=== PATIENT | male | born 1930 | race Hispanic/Latino ===

== ENCOUNTER 2016-08-29 14:17 | Inpatient (IN) | payer MEDICARE ==
[2016-08-29 14:17] VITALS: BMI 28.8
--- NOTE | 2016-08-29 15:33 | C.PDOC ---
History Of Present Illness 85-YEAR-OLD MALE, PRESENTS TO THE EMERGENCY DEPARTMENT WITH COMPLAINTS OF SOB. PATIENT STATES HE IS REFERRED DR MCLAUGHLIN FOR WORSENING SOB X 1 WEEK. PS W CHRONIC SOB AND BROTHERS BUT NOW WORSE THAN USUAL. HO CABG, MVR 2009. PS STOPPED TAKING ALL MEDS EXCEPT RANITIDINE DUE TO GI UPSET X 1 MO. CURRENTLY CO RECUR GI BURNING, REQUESTING DOSE OF RANITIDINE. NO ASSOC CP, FEVER, COUGH, SWELLING. EXAM NARD LUNGS +TACHYPNEA MILD, SPEAKING FULL SENTENCES. CTA B/L NO W/R/R CV RRR NO EDEMA ABD NEG Time Seen by Provider: 08/29/16 14:45 Chief Complaint (Nursing): Abdominal Pain History Per: Patient History/Exam Limitations: no limitations Onset/Duration Of Symptoms: Days Current Symptoms Are (Timing): Still Present Past Medical History Reviewed: Historical Data, Nursing Documentation, Vital Signs Vital Signs: Last Vital Signs Temp 97.9 F 08/29/16 16:21 Pulse 94 H 08/29/16 16:21 Resp 18 08/29/16 16:21 BP 143/82 08/29/16 16:21 Pulse Ox 99 08/29/16 16:21 - Medical History PMH: Anemia, Arthritis, CAD, Cardia Arrhythmia (A FIB), CHF, Emphysema, Gall Bladder Disease (CHOLECYSTECTOMY), HTN, Kidney Stones, Chronic Kidney Disease ( RENAL INSUFFICIENCY) Surgical History: Cholecystectomy, Coronary Stent, Endoscopy - [facility] Procedures CORONAR ARTERIOGR-2 CATH (12/07/13) LEFT HEART CARDIAC CATH (12/07/13) LT HEART ANGIOCARDIOGRAM (12/07/13) Family History: States: No Known Family Hx - Social History Hx Tobacco Use: No Hx Alcohol Use: No Hx Substance Use: No - Immunization History Hx Tetanus Toxoid Vaccination: No Hx Influenza Vaccination: Yes Review Of Systems Constitutional: Negative for: Fever Cardiovascular: Negative for: Chest Pain Respiratory: Positive for: Shortness of Breath Gastrointestinal: Negative for: Vomiting Musculoskeletal: Negative for: Back Pain Neurological: Negative for: Weakness, Numbness Physical Exam - Physical Exam Appears: Non-toxic, No Acute Distress Skin: Warm, Dry, No Rash Head: Atraumatic, Normacephalic Eye(s): bilateral: Normal Inspection Nose: Normal Neck: Normal ROM Chest: Symmetrical Cardiovascular: Rhythm Regular, No Murmur Respiratory: Other ( +TACHYPNEA MILD, SPEAKING FULL SENTENCES. CTA B/L NO W/R/R) Gastrointestinal/Abdominal: Soft, No Tenderness Extremity: Normal ROM, No Pedal Edema Neurological/Psych: Oriented x3, Normal Speech ED Course And Treatment - Laboratory Results Result Diagrams: 08/29/16 15:50 08/29/16 15:50 O2 Sat by Pulse Oximetry: 98 Pulse Ox Interpretation: Normal - Radiology CXR: Interpreted by Me CXR Interpretation: Yes: Other Progress - Re-Evaluation Re-evaluation Note: 08/29/16 16:50 EXAM UNCH. D/W DR GREENE WILL ADMIT - Data Reviewed Data Reviewed: Lab, Diagnostic imaging, EKG, Old records - Continuity of Care Discussed patient case with:: Patient, Covering for PMD Discussed pt. case with car sales consultant/specialty: Cardiology Disposition Counseled Patient/Family Regarding: Studies Performed, Diagnosis - Disposition Disposition: HOSPITALIZED Disposition Time: 16:50 Condition: STABLE - POA Present On Arrival: None - Clinical Impression Clinical Impression: Dyspnea, CHF exacerbation - Scribe Statement The provider has reviewed the documentation as recorded by the Scribe (Saurabh Martin) All medical record entries made by the Scribe were at my direction and personally dictated by me. I have reviewed the chart and agree that the record accurately reflects my personal performance of the history, physical exam, medical decision making, and the department course for this patient. I have also personally directed, reviewed, and agree with the discharge instructions and disposition. Decision To Admit - Pt Status Changed To: Hospital Disposition Of: Observation - . Bed Request Type: Telemetry Admitting Physician: Idalia Greene Patient Diagnosis: Dyspnea, CHF exacerbation
[2016-08-29] MEDS ORDERED: Aluminum Hydroxide/Magnesium Hydroxide Susp (30 mL) PO STA (15:34)
[2016-08-29] MEDS ORDERED: Aluminum Hydroxide/Magnesium Hydroxide Susp (30 mL) ONE (15:48)
[2016-08-29 15:59] LABS: BASO % 0.5 % (0.0-2.0); EOS # 0.1 K/uL (0.0-0.7); EOS % 1.4 % (0.0-4.0); HEMOGLOBIN 9.9 g/dL (12.0-18.0); LYMPH # 1.2 K/uL (1.0-4.3); LYMPH % 15.2 % (20.0-40.0); MEAN CELL VOLUME 94.7 fL (80.0-94.0); MEAN CORPUSCULAR HEMOGLOBIN 31.4 pg (27.0-31.0); MEAN CORPUSCULAR HGB CONC 33.1 g/dL (33.0-37.0); MEAN PLATELET VOLUME 8.8 fL (7.2-11.7); MONO # 0.7 K/uL (0.0-0.8); MONO % 8.6 % (0.0-10.0); NEUT # 5.8 K/uL (1.8-7.0); NEUT % 74.3 % (50.0-75.0); RBC 3.14 Mil/uL (4.40-5.90); RED CELL DISTRIBUTION WIDTH 13.7 % (11.5-14.5); WHITE BLOOD COUNT 7.8 K/uL (4.8-10.8)
[2016-08-29 16:06] LABS: ALBUMIN 3.9 g/dL (3.5-5.0)
--- NOTE | 2016-08-29 16:06 | RAD ---
PROCEDURE: CHEST RADIOGRAPH, 1 VIEW HISTORY: SOB COMPARISON: None available. FINDINGS: LUNGS: The right lung is clear. There is pulmonary venous congestion. PLEURA: There is a small left pleural effusion. There is no right pleural effusion. No pneumothorax. CARDIOVASCULAR: Status post CABG. There is mild cardiomegaly and prominent central vasculature. OSSEOUS STRUCTURES: Within normal limits for the patient's age. VISUALIZED UPPER ABDOMEN: Normal. OTHER FINDINGS: None. IMPRESSION: Cardiomegaly, mild pulmonary venous congestion and small left pleural effusion.
[2016-08-29 16:09] LABS: ALB/GLOB RATIO 1.3 (1.0-2.1); CALCIUM 8.9 mg/dl (8.6-10.4)
[2016-08-29 16:23] LABS: TROPONIN I 0.072 ng/mL (0.00-0.120)
--- NOTE | 2016-08-29 17:49 | CP.PCM.HP ---
<Lalita Forrest - Last Filed: 08/29/16 19:05> History of Present Illness - History of Present Illness History of Present Illness: CC: progressive short 85 year old male with past medical history of mitral valve prolapse with valve replacement in 2008 with bioprsthetic valve, CAD s/p 1 stent, PUD, COPD, a fib not on anticoagulation, AAA with stent, CHF presents for worsening shortness of breath x 1.5 days. Patient states that he has had shortness of breath for many years but recently it has worsened. He is normally able to walk about 1 block before he gets short of breath. Since yesterday morning, pt states that he gets short of breath from just walking around his house. Patient denies having any CP, or LE edema. Patient also c/o worsening epigastric pain. Due to this epigastric pain, patient stopped taking all of his medications except for Ranitidine. Patient was seen by closing specialist, Dr. Saha in office today and was then sent to ED. At this time, patient denies having any SOB, CP, N/V/D/C. Patient does complain of epigastric pain. Patient is unsure when last echo, EGD or colonoscopy were done. 12 point ROS are negative except for the above mentioned. PMHx: stated above Sx: CABG, AAA with stent placement, colon surgery (?), cholecystecomy Allergies: Avaalox (rash) Meds: see MAR Social: former smoker, quit 17 years ago, smoked for 50 years. No ETOH or drug use. Lives at home with niece and nephew Present on Admission - Present on Admission Any Indicators Present on Admission: No Past Patient History - Infectious Disease Hx of Infectious Diseases: None - Past Medical History & Family History Past Medical History?: Yes - Past Social History Smoking Status: Former Smoker Chewing Tobacco Use: No Cigar Use: No Alcohol: None Drugs: Denies Home Situation {Lives}: With Family - CARDIAC Hx Cardia Arrhythmia: Yes (A FIB) Hx Congestive Heart Failure: Yes Hx Hypertension: Yes - PULMONARY Hx Emphysema: Yes - NEUROLOGICAL Hx Neurological Disorder: Yes Hx Dizziness: Yes - HEENT Hx HEENT Problems: Yes Hx Cataracts: Yes (BILAT IOL) Other/Comment: LEFTB EYELID SLIGHT EDEMA SX 2 WEEKSCAGO - RENAL Hx Chronic Kidney Disease: Yes (RENAL INSUFFICIENCY) Hx Kidney Stones: Yes - ENDOCRINE/METABOLIC Hx Endocrine Disorders: No - HEMATOLOGICAL/ONCOLOGICAL Hx Anemia: Yes - MUSCULOSKELETAL/RHEUMATOLOGICAL Hx Arthritis: Yes - GASTROINTESTINAL Hx Gall Bladder Disease: Yes (CHOLECYSTECTOMY) - GENITOURINARY/GYNECOLOGICAL Hx Genitourinary Disorders: Yes Hx Prostate Problems: Yes - PSYCHIATRIC Hx Substance Use: No - SURGICAL HISTORY Hx Cholecystectomy: Yes Hx Coronary Stent: Yes - ANESTHESIA Hx Anesthesia: Yes Hx Anesthesia Reactions: No Hx Malignant Hyperthermia: No Meds Allergies/Adverse Reactions: Allergies Allergy/AdvReac Type Severity Reaction Status Date / Time moxifloxacin [From Avelox] Allergy Intermediate Verified 08/29/16 14:36 Physical Exam - Constitutional Appears: Non-toxic, No Acute Distress - Head Exam Head Exam: ATRAUMATIC - Eye Exam Eye Exam: EOMI - ENT Exam ENT Exam: Mucous Membranes Moist - Respiratory Exam Respiratory Exam: Clear to Auscultation Bilateral. absent: Accessory Muscle Use , Rales, Rhonchi, Wheezes, Respiratory Distress - Cardiovascular Exam Cardiovascular Exam: Irregular Rhythm, +S1, +S2. absent: Bradycardia, Tachycardia, Diastolic murmur, Gallop, REGULAR RHYTHM, Systolic Murmur - GI/Abdominal Exam GI & Abdominal Exam: Normal Bowel Sounds, Soft. absent: Distended, Firm, Guarding, Rigid, Tenderness - Extremities Exam Extremities exam: Negative for: pedal edema, tenderness - Neurological Exam Neurological exam: Alert, Oriented x3 - Psychiatric Exam Psychiatric exam: Normal Affect, Normal Mood - Skin Skin Exam: Dry, Intact, Normal Color, Warm Results - Vital Signs Recent Vital Signs: Last Vital Signs Temp 97.9 F 08/29/16 16:21 Pulse 94 H 08/29/16 16:21 Resp 18 08/29/16 16:21 BP 153/83 H 08/29/16 17:28 Pulse Ox 98 08/29/16 16:51 - Labs Result Diagrams: 08/29/16 15:50 08/29/16 15:50 Labs: Laboratory Results - last 24 hr 08/29/16 08/29/16 08/29/16 15:50 15:50 15:50 WBC 7.8 RBC 3.14 L Hgb 9.9 L Hct 29.8 L MCV 94.7 H MCH 31.4 H MCHC 33.1 RDW 13.7 Plt Count 139 MPV 8.8 Neut % (Auto) 74.3 Lymph % (Auto) 15.[address] [place] % (Auto) 8.6 Eos % (Auto) 1.4 Baso % (Auto) 0.5 Neut # 5.8 Lymph # 1.2 [place] # 0.7 Eos # 0.1 Baso # 0.0 Sodium 136 Potassium 4.6 Chloride 100 Carbon Dioxide 24 Anion Gap 16 BUN 27 H Creatinine 1.4 Est GFR ( Amer) 58 Est GFR (Non-Af Amer) 48 Random Glucose 89 Calcium 8.9 Total Bilirubin 0.5 AST 21 ALT 22 Alkaline Phosphatase 49 Troponin I 0.0720 NT-Pro-B Natriuret Pep 5300 H Total Protein 7.0 Albumin 3.9 Globulin 3.1 Albumin/Globulin Ratio 1.3 Digoxin < 0.4 L Assessment & Plan - Assessment and Plan (Free Text) Assessment: 85 year old male with past medical history of CAD s/p stent, CHF, AAA s/p stent , COPD, PUD, MVR in 2008 with bioprosthetic valve is admitted for worsening shortness of breath likely due to worsening diastolic CHF dysfunction. EKG in ED showed A fib with HR of 70s. On blood work, initial troponin is negative. ProBNP was elevated at 5200. SOB likely due to CHF exacerbation - ProBNP was 5200 - Cardiology, Dr. Saha is consulted - Pulmonology, Dr. Arteaga is consulted - NC prn 2 L - Lasixs 40 mg IVP BID - Patient will have echo done tomorrow - Strict Is and Os A fib - Patient is noted to be in A fib in ED with HR of 70 - Will start metoprolol 25 mg po BID - Aspirin 81 mg po qd - Patient is refusing any kind of blood thinner. Patient is explained the risk of stroke with A fib. He understands the risks and is still refusing blood thinner. Epigastric pain with history of PUD - GI Dr. Pichardo is consulted - Patient is started on protonix 40 mg po qd CAD s/p stent - Will check echo tomorrow - Patient will be started on Aspirin, Crestor 20 mg po qd, Metoprolol 25 mg po bid - Will check TSH, YOSEPH x 2, serial EKGs, lipid panel Hx of MVR with bioprosthetic valve - Will check echo tomorrow Prphylaxis - SCDs - Patient refusing blood thinners. Risks of DVT and stroke explained ot patient - Protonix 40 mg po qd Case discussed with attending, Dr. Greene - Date & Time Date: 08/29/16 Time: 19:04 <Russ Greeneia V - Last Filed: 08/29/16 22:52> Results - Vital Signs Recent Vital Signs: Last Vital Signs Temp 98.1 F 08/29/16 20:11 Pulse 71 08/29/16 22:24 Resp 18 08/29/16 22:10 BP 155/75 H 08/29/16 20:11 Pulse Ox 98 08/29/16 16:51 - Labs Result Diagrams: 08/29/16 15:50 08/29/16 15:50 Labs: Laboratory Results - last 24 hr 08/29/16 21:05 Total Creatine Kinase 68 CK-MB (Mass) 2.11 Troponin I, Quant 0.0830 Attending/Attestation - Attestation I have personally seen and examined this patient.: Yes I have fully participated in the care of the patient.: Yes I have reviewed all pertinent clinical information: Yes Notes (Text): patient seen, examined in [address] at 6:30PM Emergency Room. Patient reports history of gerd-like symptoms for past 17 years which have acute worsened over the past one month. Patient reports he has not seen an GI doctor in quite some time. He was told he has an ulcer. Patient denies BRBPR, denies black stool, patient reports sometimes he takes Aspirin and but has not taking it recently for the past one month. Patient also reports difficulty shortness of breathe over the past month. Patient reports he stopped all his cardiac medications about one month ago because of his gerd symptoms because he felt his medications were making it worsen. Patient was seen by the closing specialist outpatient recommended to come to the emergency room. Patient reports history of stents. Patient's has not taken Plavix since 2008 because of intestinal bleeding in 2008 prompting hemicolectomy. Patient unable to describe name of the surgeon to retrieve report. Patient has had mitral valve replacement with bioprosthetic valve. Patient was counselled at length for recommendation for therapeutic Lovenox since he has atrial fibrillation. Patient is at high risk for stroke. CHADS: 2; Patient was off rate control agent, restarted is digoxin, and very adamant about any blood thinner including to prevent clots in the legs. Discussed with cardiology who is aware. Discussed risk and benefits of therapuetic blood thinner to prevent embolic stroke. patient is aware he would be monitored in regards to bleeding episode given his prior experience in 2008 but refuses blood thinner in spite of knowing the risks. Patient had had sister from stroke and taken her off life-support. When asked about code status, he is hesitant and wants time to think about it. Cardiology consult-->aware and recommendations discussed with resident. Pulmonary consult-->hx of COPD; reason: shortness of breathe GI consult for persistent gerd symptoms; and hx of PUD Assessment/Plan 1) SOB likely due to CHF exacerbation * Admit to telemetry * ProBNP was 5200 * Cardiology, Dr. Saha is consulted * Pulmonology, Dr. Arteaga is consulted * NC prn 2 L * Lasixs 40 mg IVP BID * Patient will have echo done tomorrow * Strict Is and Os * Aspirin 81mg PO daily * Crestor 20 mg po qdaily * metoprolol 25 mg po BID * Lipid panel, tsh, hgba1c in AM * YOSEPH 2, 6 hours apart 2) Atrial fibrillation * Cardiology, Dr. Saha is consulted * Patient is noted to be in A fib in ED with HR of 70 * Will start metoprolol 25 mg po BID * Aspirin 81 mg po qd * Recommended for therapuetic Lovenox; However, Patient is refusing any kind of blood thinner. Patient is explained the risk and benefits of blood thinner in light of his history of atrial fibrillation in the prevention of of stroke. He understands the risks and is still refusing blood thinner. 3) Epigastric pain with history of PUD * GI Dr. Pichardo is consulted * Patient is started on protonix 40 mg po qdaily 4) CAD s/p stent * Will check echo tomorrow * Patient will be started on Aspirin, Crestor 20 mg po qd, Metoprolol 25 mg po bid * Will check TSH, YOSEPH x 2, serial EKGs, lipid panel, tall5qn 5) Hx of MVR with bioprosthetic valve * Cardiology (Dr. Saha on the case)-->help appreciated * Will check echo tomorrow 6) Prophylaxis * SCDs b/l * Patient refusing blood thinners. Risks and benefits of therapuetic lovenox in prevention of stroke in light of atrial fibrillation; patient refuses in spite understanding risk. Patient refuses DVT ppx dosing to prevent clots as well * Protonix 40 mg po qdaily * PT/OT eval * Palliative care for goals of care and POLST talk
[2016-08-29] MEDS: Pantoprazole 40 mg EC Tab PO SCH (20:11)
[2016-08-29 21:52] LABS: CK-MB 2.11 ng/mL (0.0-3.38)
--- NOTE | 2016-08-29 23:07 | CP.PCM.CON ---
History of Present Illness - History of Present Illness History of Present Illness: ASked tonight to see pt for abdom pain. Pt reports having CORY. Has had epig pain x 1 month when he stopped his meds. PMH: MVR-repair surgery, CAD-stent, PUD., COPD, afib, AAA_stent, colon surg for divertic bleed. Denies Rb, melena , wt loss, dysphagia Review of Systems - Constitutional Constitutional: absent: Fever - Cardiovascular Cardiovascular: Dyspnea - Respiratory Respiratory: Dyspnea. absent: Hemoptysis, Wheezing - Gastrointestinal Gastrointestinal: Abdominal Pain, Heartburn. absent: Diarrhea, Dysphagia, Hematemesis, Hematochezia, Melena, Vomiting - Genitourinary Genitourinary: absent: Hematuria - Musculoskeletal Musculoskeletal: absent: Muscle Cramps - Integumentary Integumentary: absent: Jaundice - Neurological Neurological: absent: Convulsions Past Patient History - Infectious Disease Hx of Infectious Diseases: None - Past Medical History & Family History Past Medical History?: Yes - Past Social History Smoking Status: Former Smoker - CARDIAC Hx Cardia Arrhythmia: Yes (A FIB) Hx Congestive Heart Failure: Yes Hx Hypertension: Yes - PULMONARY Hx Emphysema: Yes - NEUROLOGICAL Hx Neurological Disorder: Yes Hx Dizziness: Yes - HEENT Hx HEENT Problems: Yes Hx Cataracts: Yes (BILAT IOL) Other/Comment: LEFTB EYELID SLIGHT EDEMA SX 2 WEEKSCAGO - RENAL Hx Chronic Kidney Disease: Yes (RENAL INSUFFICIENCY) Hx Kidney Stones: Yes - ENDOCRINE/METABOLIC Hx Endocrine Disorders: No - HEMATOLOGICAL/ONCOLOGICAL Hx Anemia: Yes - MUSCULOSKELETAL/RHEUMATOLOGICAL Hx Arthritis: Yes Hx Falls: No - GASTROINTESTINAL Hx Gall Bladder Disease: Yes (CHOLECYSTECTOMY) - GENITOURINARY/GYNECOLOGICAL Hx Genitourinary Disorders: Yes Hx Prostate Problems: Yes - PSYCHIATRIC Hx Substance Use: No - SURGICAL HISTORY Hx Cholecystectomy: Yes Hx Coronary Stent: Yes - ANESTHESIA Hx Anesthesia: Yes Hx Anesthesia Reactions: No Hx Malignant Hyperthermia: No Meds Allergies/Adverse Reactions: Allergies Allergy/AdvReac Type Severity Reaction Status Date / Time moxifloxacin [From Avelox] Allergy Intermediate Verified 08/29/16 14:36 - Medications Medications: Current Medications Aspirin (Ecotrin) 81 mg PO DAILY [facility] Furosemide (Lasix) 40 mg IVP Q12 [facility] Metoprolol Tartrate (Lopressor) 25 mg PO BID [facility] Pantoprazole Sodium (Protonix Ec Tab) 40 mg PO DAILY [facility] Last Admin: 08/29/16 20:11 Dose: 40 mg Rosuvastatin Calcium (Crestor) 20 mg PO HS [facility] Physical Exam - Constitutional Appears: Well - Respiratory Exam Respiratory Exam: Clear to Auscultation Bilateral - Cardiovascular Exam Cardiovascular Exam: RRR - GI/Abdominal Exam GI & Abdominal Exam: Normal Bowel Sounds, Soft. absent: Guarding, Mass, Rebound , Tenderness Additional comments: scar - Extremities Exam Extremities exam: Negative for: calf tenderness, pedal edema - Neurological Exam Neurological exam: Alert, Oriented x3 Results - Vital Signs Recent Vital Signs: Last Vital Signs Temp 98.1 F 08/29/16 20:11 Pulse 71 08/29/16 22:24 Resp 18 08/29/16 22:10 BP 155/75 H 08/29/16 20:11 Pulse Ox 98 08/29/16 16:51 - Labs Result Diagrams: 08/29/16 15:50 08/29/16 15:50 Labs: Laboratory Results - last 24 hr 08/29/16 21:05 Total Creatine Kinase 68 CK-MB (Mass) 2.11 Troponin I, Quant 0.0830 Assessment & Plan (1) Epigastric pain Assessment and Plan: Gastritis. REC- PPI. Status: Acute (2) GERD (gastroesophageal reflux disease) Assessment and Plan: REC- PPI Status: Acute (3) Anemia Assessment and Plan: Likely chronic. Check stool OB. Follow up in office. Status: Acute (4) Dehydration Assessment and Plan: elev BUN Status: Acute (5) CHF exacerbation Assessment and Plan: elev pro BNP Status: Acute (6) Dyspnea Status: Acute
[2016-08-30 03:32] LABS: BASO % 0.7 % (0.0-2.0); EOS # 0.1 K/uL (0.0-0.7); EOS % 2.3 % (0.0-4.0); LYMPH # 1.7 K/uL (1.0-4.3); LYMPH % 27.2 % (20.0-40.0); MEAN CELL VOLUME 94.7 fL (80.0-94.0); MEAN CORPUSCULAR HEMOGLOBIN 31.4 pg (27.0-31.0); MEAN CORPUSCULAR HGB CONC 33.1 g/dL (33.0-37.0); MEAN PLATELET VOLUME 8.1 fL (7.2-11.7); MONO # 0.7 K/uL (0.0-0.8); MONO % 10.5 % (0.0-10.0); NEUT # 3.8 K/uL (1.8-7.0); NEUT % 59.3 % (50.0-75.0); RBC 3.19 Mil/uL (4.40-5.90); RED CELL DISTRIBUTION WIDTH 13.9 % (11.5-14.5); WHITE BLOOD COUNT 6.4 K/uL (4.8-10.8)
[2016-08-30 03:36] LABS: INR 1.2; PROTHROMBIN TIME 13.2 SECONDS (9.7-12.2)
[2016-08-30 04:11] LABS: ALBUMIN 3.7 g/dL (3.5-5.0)
[2016-08-30 04:15] LABS: ALB/GLOB RATIO 1.2 (1.0-2.1); CALCIUM 8.8 mg/dl (8.6-10.4)
[2016-08-30 04:25] LABS: CK-MB 1.87 ng/mL (0.0-3.38)
[2016-08-30 04:26] LABS: % IRON SATURATION 17 (20-55); TOTAL IRON BINDING CAPACITY 268 ug/dL (250-450)
[2016-08-30 05:21] LABS: FOLATE 17.5 ng/mL
[2016-08-30 08:46] LABS: IRON 45 ug/dL (49-181)
[2016-08-30] MEDS: Pantoprazole 40 mg EC Tab PO SCH (09:32)
--- NOTE | 2016-08-30 10:00 | CP.PCM.PN ---
Subjective - Date & Time of Evaluation Date of Evaluation: 08/30/16 Time of Evaluation: 09:59 - Subjective Subjective: PGY-[address] Greene Pt seen and examined at bedside. Pt found resting comfortably in bed, in no acute distress. Pt states he has no problems breathing at rest but remains short of breath when he attempts to exert himself. He reports being able to walk to the nurses station, but needs to rest after getting there before completing the circuit to his room. Abdominal pain is improved from yesterday. He reports normal bowel movements for him are loose since partial hemicholectomy for diverticular bleed. He admits tolerating diet without difficulty. He denies GERD symptoms, N/V, or chest pain. Objective - Vital Signs/Intake and Output Vital Signs (last 24 hours): Temp Pulse Resp BP Pulse Ox 97.3 F L 71 18 116/69 95 08/30/16 08:15 08/30/16 08:15 08/30/16 08:15 08/30/16 09:33 08/30/16 08:15 - Medications Medications: Current Medications Aspirin (Ecotrin) 81 mg PO DAILY [facility] Last Admin: 08/30/16 09:32 Dose: 81 mg Furosemide (Lasix) 40 mg IVP Q12 [facility] Last Admin: 08/30/16 09:33 Dose: 40 mg Heparin Sodium (Porcine) (Heparin) 5,000 units SC Q8 [facility] Metoprolol Tartrate (Lopressor) 25 mg PO BID [facility] Last Admin: 08/30/16 09:32 Dose: 25 mg Pantoprazole Sodium (Protonix Ec Tab) 40 mg PO DAILY [facility] Last Admin: 08/30/16 09:32 Dose: 40 mg Rosuvastatin Calcium (Crestor) 20 mg PO HS [facility] Last Admin: 08/29/16 23:44 Dose: 20 mg - Labs Labs: 08/30/16 03:28 08/30/16 03:28 PT 13.2 SECONDS (9.7-12.2) H 08/30/16 03:28 INR 1.2 08/30/16 03:28 Assessment and Plan - Assessment and Plan (Free Text) Plan: SOB likely due to CHF (systolic dysfunction) exacerbation - Admit to telemetry - ProBNP: 5200 - YOSEPH negative x 3 - Cardiology, Dr. Saha and Dr. Voudours consulted - Pulmonology, Dr. Arteaga is consulted - Start Duonebs, Budesonide - NC prn 2L - Lasix 40 mg IVP BID - ECHO: Mild to moderate LV systolic dysfunction. EF 38%. Dilated LV and LA. Trace AR. Moderate TR. normally functioning bioprosthetic mitral valve. - Strict Is and Os, daily weights ASA 81mg PO daily Metoprolol 25mg PO BID TSH: WNL, Lipid panel: WNL A fib - Patient is noted to be in A fib in ED with HR of 70 - Metoprolol 25 mg po BID - Aspirin 81 mg po qd - Patient initially refusing Lovenox, but consented to heparin "for today". - Pt understands risk of stroke with anticoagulation. Has trepidation about blood thinners from previous GI bleed. Epigastric pain Pt has hx of PUD Improved today, tolerating diet - GI Dr. Pichardo is consulted - Patient is started on protonix 40 mg po qd CAD s/p stent - Echo: Mild to moderate LV systolic dysfunction. EF 38%. Dilated LV and LA. Trace AR. Moderate TR. normally functioning bioprosthetic mitral valve. - Patient will be started on Aspirin, Crestor 20 mg po qd, Metoprolol 25 mg po bid Hx of MVR with bioprosthetic valve - Echo: Mild to moderate LV systolic dysfunction. EF 38%. Dilated LV and LA. Trace AR. Moderate TR. normally functioning bioprosthetic mitral valve. Prophylaxis - SCDs - Patient consenting to Heparin "today" will reevaluate in AM - Protonix 40 mg po Daily Disposition: Palliative Care consult: Pt elected DNR/DNI Case discussed with attending, Dr. Ramona Chacon PGY-1
--- NOTE | 2016-08-30 11:51 | CP.PCM.PN ---
Subjective - Date & Time of Evaluation Date of Evaluation: 08/30/16 Time of Evaluation: 12:00 - Subjective Subjective: F/U abd pain. Reports less pain- when eats is better. Denies fever, chills SZ, LOC, GRIDER, cough, RB, melena, Objective - Vital Signs/Intake and Output Vital Signs (last 24 hours): Temp Pulse Resp BP Pulse Ox 97.3 F L 71 18 116/69 95 08/30/16 08:15 08/30/16 08:15 08/30/16 08:15 08/30/16 09:33 08/30/16 08:15 - Medications Medications: Current Medications Aspirin (Ecotrin) 81 mg PO DAILY [facility] Last Admin: 08/30/16 09:32 Dose: 81 mg Furosemide (Lasix) 40 mg IVP Q12 [facility] Last Admin: 08/30/16 09:33 Dose: 40 mg Heparin Sodium (Porcine) (Heparin) 5,000 units SC Q8 [facility] Metoprolol Tartrate (Lopressor) 25 mg PO BID [facility] Last Admin: 08/30/16 09:32 Dose: 25 mg Pantoprazole Sodium (Protonix Ec Tab) 40 mg PO DAILY [facility] Last Admin: 08/30/16 09:32 Dose: 40 mg Pneumococcal Polyvalent Vaccine (Pneumovax 23 Vaccine) 0.5 ml IM .ONCE ONE Stop: 08/31/16 10:01 Rosuvastatin Calcium (Crestor) 20 mg PO HS [facility] Last Admin: 08/29/16 23:44 Dose: 20 mg - Labs Labs: 08/30/16 03:28 08/30/16 03:28 PT 13.2 SECONDS (9.7-12.2) H 08/30/16 03:28 INR 1.2 08/30/16 03:28 - Neck Exam Neck Exam: absent: Tenderness - Respiratory Exam Respiratory Exam: Clear to Ausculation Bilateral - Cardiovascular Exam Cardiovascular Exam: RRR - GI/Abdominal Exam GI & Abdominal Exam: Soft, Normal Bowel Sounds. absent: Guarding, Rigid, Tenderness, Rebound - Extremities Exam Extremities Exam: absent: Calf Tenderness - Neurological Exam Neurological Exam: Alert, Oriented x3 Assessment and Plan (1) Epigastric pain Assessment & Plan: Consider gsatritis. Better on food and meds. Status: Acute (2) GERD (gastroesophageal reflux disease) Status: Acute (3) Anemia Status: Acute (4) Dehydration Status: Acute (5) CHF exacerbation Status: Acute (6) Dyspnea Status: Acute
--- NOTE | 2016-08-30 13:48 | CP.PCM.CON ---
History of Present Illness - History of Present Illness History of Present Illness: reason for consultation: shortness of breath/COPD 85-year-old male with history off mitral valve prolapse status post valve replacement, coronary artery disease status post CABG and stent placement, COPD , atrial fibrillation, AAA repair, presented with shortness of breath that progressively got worse and could hardly walk one block before he gets short of breath, also complaining of epigastric discomfort. Denies cough, denies fever chi, denies chest pain Sx: CABG, AAA with stent placement, colon surgery (?), cholecystecomy Allergies: Avaalox (rash) Meds: see APR Social: former smoker, quit 17 years ago, smoked for 50 years. No ETOH or drug use. Lives at home with niece and nephew Review of Systems - Review of Systems All systems: reviewed and no additional remarkable complaints except (shortness of breath) Past Patient History - Infectious Disease Hx of Infectious Diseases: None - Past Medical History & Family History Past Medical History?: Yes - Past Social History Smoking Status: Former Smoker - CARDIAC Hx Cardiac Disorders: Yes (CAD) Hx Congestive Heart Failure: Yes - PULMONARY Hx Emphysema: Yes - NEUROLOGICAL Hx Neurological Disorder: Yes Hx Dizziness: Yes - HEENT Hx HEENT Problems: Yes Hx Cataracts: Yes (BILAT IOL) Other/Comment: LEFTB EYELID SLIGHT EDEMA SX 2 WEEKSCAGO - RENAL Hx Chronic Kidney Disease: Yes (RENAL INSUFFICIENCY) Hx Kidney Stones: Yes - ENDOCRINE/METABOLIC Hx Endocrine Disorders: No - HEMATOLOGICAL/ONCOLOGICAL Hx Anemia: Yes - MUSCULOSKELETAL/RHEUMATOLOGICAL Hx Arthritis: Yes - GASTROINTESTINAL Hx Gall Bladder Disease: Yes (CHOLECYSTECTOMY) - GENITOURINARY/GYNECOLOGICAL Hx Genitourinary Disorders: Yes Hx Prostate Problems: Yes - PSYCHIATRIC Hx Substance Use: No - SURGICAL HISTORY Hx Cholecystectomy: Yes Hx Coronary Stent: Yes - ANESTHESIA Hx Anesthesia: Yes Hx Anesthesia Reactions: No Hx Malignant Hyperthermia: No Meds Allergies/Adverse Reactions: Allergies Allergy/AdvReac Type Severity Reaction Status Date / Time moxifloxacin [From Avelox] Allergy Intermediate Verified 08/29/16 14:36 - Medications Medications: Current Medications Aspirin (Ecotrin) 81 mg PO DAILY [facility] Last Admin: 08/30/16 09:32 Dose: 81 mg Furosemide (Lasix) 40 mg IVP Q12 [facility] Last Admin: 08/30/16 09:33 Dose: 40 mg Heparin Sodium (Porcine) (Heparin) 5,000 units SC Q8 [facility] Metoprolol Tartrate (Lopressor) 25 mg PO BID [facility] Last Admin: 08/30/16 09:32 Dose: 25 mg Pantoprazole Sodium (Protonix Ec Tab) 40 mg PO DAILY [facility] Last Admin: 08/30/16 09:32 Dose: 40 mg Pneumococcal Polyvalent Vaccine (Pneumovax 23 Vaccine) 0.5 ml IM .ONCE ONE Stop: 08/31/16 10:01 Rosuvastatin Calcium (Crestor) 20 mg PO [facility] Last Admin: 08/29/16 23:44 Dose: 20 mg Physical Exam - Head Exam Head Exam: ATRAUMATIC, NORMOCEPHALIC - Eye Exam Eye Exam: Normal appearance - ENT Exam ENT Exam: Mucous Membranes Moist - Neck Exam Neck exam: Positive for: Normal Inspection - Respiratory Exam Respiratory Exam: Decreased Breath Sounds - Cardiovascular Exam Cardiovascular Exam: Irregular Rhythm Results - Vital Signs Recent Vital Signs: Last Vital Signs Temp 97.3 F L 08/30/16 08:15 Pulse 71 08/30/16 08:15 Resp 18 08/30/16 08:15 BP 116/69 08/30/16 09:33 Pulse Ox 95 08/30/16 08:15 - Labs Result Diagrams: 08/30/16 03:28 08/30/16 03:28 Labs: Laboratory Results - last 24 hr 08/29/16 08/30/16 08/30/16 21:05 03:28 03:28 WBC 6.4 RBC 3.19 L Hgb 10.0 L Hct 30.3 L MCV 94.7 H MCH 31.4 H MCHC 33.1 RDW 13.9 Plt Count 139 MPV 8.1 Neut % (Auto) 59.3 Lymph % (Auto) 27.2 [place] % (Auto) 10.5 H Eos % (Auto) 2.3 Baso % (Auto) 0.7 Neut # 3.8 Lymph # 1.7 [place] # 0.7 Eos # 0.1 Baso # 0.0 Retic Count PT 13.2 H INR 1.2 Sodium Potassium Chloride Carbon Dioxide Anion Gap BUN Creatinine Est GFR ( Amer) Est GFR (Non-Af Amer) Random Glucose Hemoglobin A1c Calcium Iron TIBC % Saturation Ferritin Total Bilirubin AST ALT Alkaline Phosphatase Total Creatine Kinase 68 CK-MB (Mass) 2.11 Troponin I, Quant 0.0830 Total Protein Albumin Globulin Albumin/Globulin Ratio Triglycerides Cholesterol LDL Cholesterol Direct HDL Cholesterol Vitamin B12 Folate TSH 3rd Generation 08/30/16 08/30/16 08/30/16 03:28 03:28 03:28 WBC RBC Hgb Hct MCV MCH MCHC RDW Plt Count MPV Neut % (Auto) Lymph % (Auto) [place] % (Auto) Eos % (Auto) Baso % (Auto) Neut # Lymph # [place] # Eos # Baso # Retic Count 1.2 PT INR Sodium 136 Potassium 4.2 Chloride 99 Carbon Dioxide 27 Anion Gap 15 BUN 27 H Creatinine 1.5 Est GFR ( Amer) 54 Est GFR (Non-Af Amer) 44 Random Glucose 97 Hemoglobin A1c 5.3 Calcium 8.8 Iron TIBC % Saturation Ferritin 224.0 Total Bilirubin 0.7 AST 21 ALT 20 L Alkaline Phosphatase 44 Total Creatine Kinase 61 CK-MB (Mass) 1.87 Troponin I, Quant 0.0990 Total Protein 6.8 Albumin 3.7 Globulin 3.1 Albumin/Globulin Ratio 1.2 Triglycerides 88 D Cholesterol 153 LDL Cholesterol Direct 103 HDL Cholesterol 34 Vitamin B12 352 Folate 17.5 TSH 3rd Generation 1.88 08/30/16 03:28 WBC RBC Hgb Hct MCV MCH MCHC RDW Plt Count MPV Neut % (Auto) Lymph % (Auto) [place] % (Auto) Eos % (Auto) Baso % (Auto) Neut # Lymph # [place] # Eos # Baso # Retic Count PT INR Sodium Potassium Chloride Carbon Dioxide Anion Gap BUN Creatinine Est GFR ( Amer) Est GFR (Non-Af Amer) Random Glucose Hemoglobin A1c Calcium Iron 45 L TIBC 268 % Saturation 17 L Ferritin Total Bilirubin AST ALT Alkaline Phosphatase Total Creatine Kinase CK-MB (Mass) Troponin I, Quant Total Protein Albumin Globulin Albumin/Globulin Ratio Triglycerides Cholesterol LDL Cholesterol Direct HDL Cholesterol Vitamin B12 Folate TSH 3rd Generation Assessment & Plan (1) Dyspnea Status: Acute Comment: most likely secondary to CHF. COPD cannot be ruled out because of long history of smoking. Start nebulizer treatment and inhaled steroids. Continue present treatment (2) GERD (gastroesophageal reflux disease) Status: Acute
--- NOTE | 2016-08-30 14:40 | CP.PCM.CON ---
History of Present Illness - History of Present Illness History of Present Illness: Palliative consult Requested by Ramona HURTADO Reason Code status and goals of care discussion Patient is a 85 yo male admitted from home with abdominal pain and SOb X 1 week. patient stopped taking all his meds as he believed abdominal pain was coming from them. One of the med was Digoxin. Patient was seen in community by Doctor Yifan for his SOB. After patient informed Doctor Yifan of discontinuing meds on his own, admission was advised, especially when patient complained of worsening SOB. The CXR upon admission was significant for mild pulmonary congestion. Lasix 40 mg PO Q 12 hr initiated and Pulmonary consult with Doctor Chandler was called. PMH: hemicolectomi 10 years ago for GI bleeding, anemia, CAD, CHF, emphysema Soc. Hx: single, never maried, lives in the house with niece and nephew PMH:sister , was removed from life support , its believed she had hemoragic brain injury Review of Systems - Review of Systems All systems: reviewed and no additional remarkable complaints except - Constitutional Constitutional: absent: As Per HPI, Anorexia, Chills, Daytime Sleepiness, Excessive Sweating, Fatigue, Fever, Frequent Falls, Headache, Increased Appetite , Lethargy, Malaise, Night Sweats, Snoring, Sleep Apnea, Weight Gain, Weight Loss, Weakness, Other - EENT Eyes: absent: As Per HPI, Blind Spots, Blurred Vision, Change in Vision, Decreased Night Vision, Diplopia, Discharge, Dry Eye, Exophthalmos, Floaters, Irritation, Itchy Eyes, Loss of Peripheral Vision, Pain, Photophobia, Requires Corrective Lenses, Sees Flashes, Spots in Vision, Tunnel Vision, Other Visual Disturbances, Loss of Vision, Other Ears: Abnormal Hearing Nose/Mouth/Throat: absent: As Per HPI, Epistaxis, Nasal Congestion, Nasal Discharge, Nasal Obstruction, Nasal Trauma, Nose Pain, Post Nasal Drip, Sinus Pain, Sinus Pressure, Bleeding Gums, Change in Voice, Dental Pain, Dry Mouth, Dysphagia, Halitosis, Hoarsness, Lip Swelling, Mouth Lesions, Mouth Pain, Odynophagia, Sore Throat, Throat Swelling, Tongue Swelling, Facial Pain, Neck Pain, Neck Mass, Other - Cardiovascular Cardiovascular: Dyspnea, Dyspnea on Exertion, Irregular Heart Rhythm - Respiratory Respiratory: Dyspnea, Dyspnea on Exertion, Chest Congestion - Gastrointestinal Gastrointestinal: Abdominal Pain, Loose Stools - Genitourinary Genitourinary: absent: As Per HPI, Change in Urinary Stream, Difficulty Urinating, Dysuria, Flank Pain, Hematuria, Pyuria, Nocturia, Urinary Incontinence, Urinary Frequency, Urinary Hesitance, Urinary Urgency, Voiding Freq/Small Amts, Freq UTI, Hx Renal/Bladder Calculi, Hx /Renal Surgery, Bladder Distension, Other - Integumentary Integumentary: absent: As Per HPI, Acne, Alopecia, Bleeding Lesions, Change in Hair, Change in Nails, Change in Pigmentation, Changing Lesions, Dry Skin, Erythema, Furuncle, Hirsutism, Lesions, New Lesions, Non-Healing Lesions, Photosensitivity, Pruritus, Rash, Skin Pain, Skin Ulcer, Sores, Striae, Swelling , Unusual Bruising, Wounds, Jaundice, Other - Neurological Neurological: absent: As Per HPI, Abnormal Gait, Abnormal Hearing, Abnormal Movements, Abnormal Speech, Behavioral Changes, Burning Sensations, Confusion, Convulsions, Disequilibrium, Dizziness, Numbness, Focal Weakness, Frequent Falls , Headaches, Lack of Coordination, Loss of Vision, Memory Loss, Paresthesias, Radicular Pain, Restless Legs, Sensory Deficit, Syncope, Tingling, Tremor, Vertigo, Weakness, Other Visual Disturbances, Other - Psychiatric Psychiatric: absent: As Per HPI, Abnormal Sleep Pattern, Anhedonia, Anxiety, Auditory Hallucinations, Behavioral Changes, Change in Appetite, Change in Libido, Confusion, Depression, Difficulty Concentrating, Hallucinations, Homicidal Ideation, Hopelessness, Irritability, Memory Loss, Mood Swings, Panic Attacks, Paranoia, Suicidal Ideation, Visual Hallucinations, Tactile Hallucinations, Other - Endocrine Endocrine: absent: As Per HPI, Change in Body Appearance, Change in Libido, Cold Intolorance, Deepening of Voice, Excessive Sweating, Fatigue, Flushing, Heat Intolorance, Increase in Ring/Shoe/Hat Size, Palpitations, Polydipsia, Polyphagia, Polyuria, Other - Hematologic/Lymphatic Hematologic: absent: As Per HPI, Easy Bleeding, Easy Bruising, Lymphadenopathy, Other Past Patient History - Infectious Disease Hx of Infectious Diseases: None - Past Medical History & Family History Past Medical History?: Yes - Past Social History Smoking Status: Former Smoker - CARDIAC Hx Cardiac Disorders: Yes (CAD) Hx Congestive Heart Failure: Yes - PULMONARY Hx Emphysema: Yes - NEUROLOGICAL Hx Neurological Disorder: Yes Hx Dizziness: Yes - HEENT Hx HEENT Problems: Yes Hx Cataracts: Yes (BILAT IOL) Other/Comment: LEFTB EYELID SLIGHT EDEMA SX 2 [place]EEKSCAGO - RENAL Hx Chronic Kidney Disease: Yes (RENAL INSUFFICIENCY) Hx Kidney Stones: Yes - ENDOCRINE/METABOLIC Hx Endocrine Disorders: No - HEMATOLOGICAL/ONCOLOGICAL Hx Anemia: Yes - MUSCULOSKELETAL/RHEUMATOLOGICAL Hx Arthritis: Yes - GASTROINTESTINAL Hx Gall Bladder Disease: Yes (CHOLECYSTECTOMY) - GENITOURINARY/GYNECOLOGICAL Hx Genitourinary Disorders: Yes Hx Prostate Problems: Yes - PSYCHIATRIC Hx Substance Use: No - SURGICAL HISTORY Hx Cholecystectomy: Yes Hx Coronary Stent: Yes - ANESTHESIA Hx Anesthesia: Yes Hx Anesthesia Reactions: No Hx Malignant Hyperthermia: No Meds Allergies/Adverse Reactions: Allergies Allergy/AdvReac Type Severity Reaction Status Date / Time moxifloxacin [From Avelox] Allergy Intermediate Verified 08/29/16 14:36 - Medications Medications: Current Medications Aspirin (Ecotrin) 81 mg PO DAILY [facility] Last Admin: 08/30/16 09:32 Dose: 81 mg Furosemide (Lasix) 40 mg IVP Q12 [facility] Last Admin: 08/30/16 09:33 Dose: 40 mg Heparin Sodium (Porcine) (Heparin) 5,000 units SC Q8 [facility] Last Admin: 08/30/16 14:00 Dose: 5,000 units Metoprolol Tartrate (Lopressor) 25 mg PO BID [facility] Last Admin: 08/30/16 09:32 Dose: 25 mg Pantoprazole Sodium (Protonix Ec Tab) 40 mg PO DAILY [facility] Last Admin: 08/30/16 09:32 Dose: 40 mg Pneumococcal Polyvalent Vaccine (Pneumovax 23 Vaccine) 0.5 ml IM .ONCE ONE Stop: 08/31/16 10:01 Rosuvastatin Calcium (Crestor) 20 mg PO [facility] Last Admin: 08/29/16 23:44 Dose: 20 mg Physical Exam - Constitutional Appears: No Acute Distress, Chronically Ill - Head Exam Head Exam: ATRAUMATIC, NORMAL INSPECTION, NORMOCEPHALIC - Eye Exam Eye Exam: EOMI, Normal appearance, PERRL Pupil Exam: NORMAL ACCOMODATION, PERRL - ENT Exam ENT Exam: Mucous Membranes Moist, Normal Exam - Neck Exam Neck exam: Positive for: Normal Inspection - Respiratory Exam Respiratory Exam: Decreased Breath Sounds, NORMAL BREATHING PATTERN - Cardiovascular Exam Cardiovascular Exam: Tachycardia, Irregular Rhythm - GI/Abdominal Exam GI & Abdominal Exam: Normal Bowel Sounds, Soft - Rectal Exam Rectal Exam: Deferred - Exam Exam: NORMAL INSPECTION - Extremities Exam Extremities exam: Positive for: normal inspection - Back Exam Back exam: NORMAL INSPECTION - Neurological Exam Neurological exam: Alert, Oriented x3 - Psychiatric Exam Psychiatric exam: Normal Affect, Normal Mood - Skin Skin Exam: Dry, Pallor, Warm Results - Vital Signs Recent Vital Signs: Last Vital Signs Temp 97.3 F L 08/30/16 08:15 Pulse 71 08/30/16 08:15 Resp 18 08/30/16 08:15 BP 116/69 08/30/16 09:33 Pulse Ox 95 08/30/16 08:15 - Labs Result Diagrams: 08/30/16 03:28 08/30/16 03:28 Labs: Laboratory Results - last 24 hr 08/29/16 08/30/16 08/30/16 21:05 03:28 03:28 WBC 6.4 RBC 3.19 L Hgb 10.0 L Hct 30.3 L MCV 94.7 H MCH 31.4 H MCHC 33.1 RDW 13.9 Plt Count 139 MPV 8.1 Neut % (Auto) 59.3 Lymph % (Auto) 27.2 [place] % (Auto) 10.5 H Eos % (Auto) 2.3 Baso % (Auto) 0.7 Neut # 3.8 Lymph # 1.7 [place] # 0.7 Eos # 0.1 Baso # 0.0 Retic Count PT 13.2 H INR 1.2 Sodium Potassium Chloride Carbon Dioxide Anion Gap BUN Creatinine Est GFR ( Amer) Est GFR (Non-Af Amer) Random Glucose Hemoglobin A1c Calcium Iron TIBC % Saturation Ferritin Total Bilirubin AST ALT Alkaline Phosphatase Total Creatine Kinase 68 CK-MB (Mass) 2.11 Troponin I, Quant 0.0830 Total Protein Albumin Globulin Albumin/Globulin Ratio Triglycerides Cholesterol LDL Cholesterol Direct HDL Cholesterol Vitamin B12 Folate TSH 3rd Generation 08/30/16 08/30/16 08/30/16 03:28 03:28 03:28 WBC RBC Hgb Hct MCV MCH MCHC RDW Plt Count MPV Neut % (Auto) Lymph % (Auto) [place] % (Auto) Eos % (Auto) Baso % (Auto) Neut # Lymph # [place] # Eos # Baso # Retic Count 1.2 PT INR Sodium 136 Potassium 4.2 Chloride 99 Carbon Dioxide 27 Anion Gap 15 BUN 27 H Creatinine 1.5 Est GFR ( Amer) 54 Est GFR (Non-Af Amer) 44 Random Glucose 97 Hemoglobin A1c 5.3 Calcium 8.8 Iron TIBC % Saturation Ferritin 224.0 Total Bilirubin 0.7 AST 21 ALT 20 L Alkaline Phosphatase 44 Total Creatine Kinase 61 CK-MB (Mass) 1.87 Troponin I, Quant 0.0990 Total Protein 6.8 Albumin 3.7 Globulin 3.1 Albumin/Globulin Ratio 1.2 Triglycerides 88 D Cholesterol 153 LDL Cholesterol Direct 103 HDL Cholesterol 34 Vitamin B12 352 Folate 17.5 TSH 3rd Generation 1.88 08/30/16 03:28 WBC RBC Hgb Hct MCV MCH MCHC RDW Plt Count MPV Neut % (Auto) Lymph % (Auto) [place] % (Auto) Eos % (Auto) Baso % (Auto) Neut # Lymph # [place] # Eos # Baso # Retic Count PT INR Sodium Potassium Chloride Carbon Dioxide Anion Gap BUN Creatinine Est GFR ( Amer) Est GFR (Non-Af Amer) Random Glucose Hemoglobin A1c Calcium Iron 45 L TIBC 268 % Saturation 17 L Ferritin Total Bilirubin AST ALT Alkaline Phosphatase Total Creatine Kinase CK-MB (Mass) Troponin I, Quant Total Protein Albumin Globulin Albumin/Globulin Ratio Triglycerides Cholesterol LDL Cholesterol Direct HDL Cholesterol Vitamin B12 Folate TSH 3rd Generation Assessment & Plan - Assessment and Plan (Free Text) Assessment: Palliative consult Code status prior to consult was Full code, PPS 40% I reviewed medical records, all diagnostic studies, examined and interviewed patient in the bed Patient is alert, oriented X 3 with breathing that is congested. Patient gets short of breath at rest while talking. Reports, being more short of breath in the last week. Breath sounds are diminished, there is no sputum production, O2sat 95 % RA. Trace pedal edema. Patient reports feeling less stomach cramps after he was fed this morning. Ever since his colon surgery , patient states having watery stool. Denies weight loss. WBC 6.4, Hb 10.0, Dogoxin level 0.4. BP 116/71, HR 71, RR 16 regular. All organ systems were reviewed and are negative except mentioned above. Goals of care discussed with patient. He is concerned with his health and wants to do what is right for him. Patient is worried about his breathing and is afraid he may from it. I reassured him of necessary steps taken to promote his health and corrected his knowledge regarding need to fallow up with ordered meds and the risks of sudden cessation of those. Patient reported understanding. Code status discussed. Patient talked about his sister who was in coma on life support when he made decision to let her go naturally. Patient stated he would not want to be on life support. At first patient said that if anything happened to him his nephew will make health care decision, than changed his mind and decided those decisions to be made by him right now. The Code status benefices was explained to patient in detailed. patient reassured that signing POLST will not change course of actions taken to support his life. Patient was clear, that if in the future his condition worsens and all prudent medical interventions are not beneficial for him, he would want to be allowed natural . Patient chose DNR/DNI. POLST completed. Impression * Patient is in mild respiratory distress due to worsening CHF, but is improving with Lasix * Abdominal pain has improved on Protonix and with food * Patient is concerned about his abdominal pain caused by the PO meds. he understands the need to be compliant with medications * Patient has a clear preferences regarding Code status and choose DNR/DNI Suggestion * POLST on chart * Continue Protonix * Promote bed rest and assist with ADLs to support energy consumption * Reinforce compliance with ordered Tx Thank you for the consult.
--- NOTE | 2016-08-30 14:42 | CARD ---
APPROVED REPORT EKG Measurement Heart [id number] <Conclusion> Atrial fibrillation Cannot rule out Inferior infarct, age undetermined Abnormal ECG
--- NOTE | 2016-08-30 15:39 | CARD ---
APPROVED REPORT EXAM: Two-dimensional and M-mode echocardiogram with Doppler and color Doppler. Other Information Quality : GoodRhythm : NSR INDICATION Dyspnea Cardiac Disease: CAD Congestive Heart Failure S/P 1 STENT , EPIGASTRIC PAIN Surgery/Intervention Status/Post Mitral Valve Replacement: Bioprosthetic Date: 2008 CABG: M-Mode DIMENSIONS RVDd2.27 (2.1-3.2cm)Left Atrium (MM)5.69 (2.5-4.0cm) IVSd0.74 (0.7-1.1cm)Aortic Root3.79 (2.2-3.7cm) LVDd6.55 (4.0-5.6cm)Aortic Cusp Exc.2.06 (1.5-2.0cm) PWd0.91 (0.7-1.1cm)FS (%) 19 % LVDs5.32 (2.0-3.8cm)LVEF (%)38 (>50%) Aortic Valve AI P 1/2 [id number] Mitral Valve MV E Icotlpbu850.2cm/sMV E Peak Gr.18mmHgMV E Mean Gr.6mmHg MV [id number] ratio0.0MVA (PHT)1.47cm2 TDI E/Lateral E'0.0E/Medial E'0.0 Tricuspid Valve TR Peak [id number] Peak Gr.[id number] LEFT VENTRICLE The Left Ventricle is mildly dilated. There is normal left ventricular wall thickness. The systolic function is mildly to moderately impaired. RIGHT VENTRICLE The right ventricle is normal size. ATRIA The left atrium is severely dilated. The right atrium is borderline dilated. AORTIC VALVE There is trace aortic regurgitation. MITRAL VALVE Normal functioning Bioprosthetic Mitral valve. TRICUSPID VALVE There is mild to moderate tricuspid regurgitation. <Conclusion> Mild to moderate LV systolic dysfunction. Dilated LV and LA. Trace AR. Moderate TR. Nomally functioning Bioprosthetic Mitral valve.
--- NOTE | 2016-08-30 15:43 | CP.PCM.CON ---
History of Present Illness - History of Present Illness History of Present Illness: This is an 85 yo male with past medical hx of MVP with valve replacement, CAD s/ p 1 stent, PUD, COPD, a fib, not on anticoagulation, AAA with stent, CHF presenting with chief complaint of shortness of breath. 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 He is usually able to walk a few blocks without assistance and do work around his house without trouble. However, he says he was doing more work than usual and he tired himself out and he began developing sob. The sob was getting worse and he was also seeing Dr. Saha in his office. Dr. Saha told him to come into ER. Denies cp , fevers, chills, vomiting, diarrhea, syncope. EKG done initially showed a fib with rate in the 70s. PMH: as above PSH: CABG, AAA repair with stent, cholecystectomy FH: Non contributory Social hx: former smoker. denies drinking, drug use. Allergies: moxifloxacin Review of Systems - Review of Systems All systems: reviewed and no additional remarkable complaints except Review of Systems: neg except per HPI. Past Patient History - Infectious Disease Hx of Infectious Diseases: None - Past Medical History & Family History Past Medical History?: Yes - Past Social History Smoking Status: Former Smoker Chewing Tobacco Use: No Cigar Use: No Alcohol: None Drugs: Denies Home Situation {Lives}: Alone Domestic Violence: Negative - CARDIAC Hx Cardiac Disorders: Yes (CAD) Hx Congestive Heart Failure: Yes - PULMONARY Hx Emphysema: Yes - NEUROLOGICAL Hx Neurological Disorder: Yes Hx Dizziness: Yes - HEENT Hx HEENT Problems: Yes Hx Cataracts: Yes (BILAT IOL) Other/Comment: LEFTB EYELID SLIGHT EDEMA SX 2 WEEKSCAGO - RENAL Hx Chronic Kidney Disease: Yes (RENAL INSUFFICIENCY) Hx Kidney Stones: Yes - ENDOCRINE/METABOLIC Hx Endocrine Disorders: No - HEMATOLOGICAL/ONCOLOGICAL Hx Anemia: Yes - MUSCULOSKELETAL/RHEUMATOLOGICAL Hx Arthritis: Yes - GASTROINTESTINAL Hx Gall Bladder Disease: Yes (CHOLECYSTECTOMY) - GENITOURINARY/GYNECOLOGICAL Hx Genitourinary Disorders: Yes Hx Prostate Problems: Yes - PSYCHIATRIC Hx Substance Use: No - SURGICAL HISTORY Hx Cholecystectomy: Yes Hx Coronary Stent: Yes - ANESTHESIA Hx Anesthesia: Yes Hx Anesthesia Reactions: No Hx Malignant Hyperthermia: No Meds Allergies/Adverse Reactions: Allergies Allergy/AdvReac Type Severity Reaction Status Date / Time moxifloxacin [From Avelox] Allergy Intermediate Verified 08/29/16 14:36 - Medications Medications: Current Medications Aspirin (Ecotrin) 81 mg PO DAILY [facility] Last Admin: 08/30/16 09:32 Dose: 81 mg Furosemide (Lasix) 40 mg IVP Q12 [facility] Last Admin: 08/30/16 09:33 Dose: 40 mg Heparin Sodium (Porcine) (Heparin) 5,000 units SC Q8 [facility] Last Admin: 08/30/16 14:00 Dose: 5,000 units Metoprolol Tartrate (Lopressor) 25 mg PO BID [facility] Last Admin: 08/30/16 09:32 Dose: 25 mg Pantoprazole Sodium (Protonix Ec Tab) 40 mg PO DAILY [facility] Last Admin: 08/30/16 09:32 Dose: 40 mg Pneumococcal Polyvalent Vaccine (Pneumovax 23 Vaccine) 0.5 ml IM .ONCE ONE Stop: 08/31/16 10:01 Rosuvastatin Calcium (Crestor) 20 mg PO HS [facility] Last Admin: 08/29/16 23:44 Dose: 20 mg Physical Exam - Constitutional Appears: Non-toxic, No Acute Distress - Head Exam Head Exam: ATRAUMATIC, NORMAL INSPECTION, NORMOCEPHALIC - Eye Exam Eye Exam: EOMI - ENT Exam ENT Exam: Mucous Membranes Moist - Neck Exam Neck exam: Positive for: Full Rom, Normal Inspection - Respiratory Exam Respiratory Exam: Rales. absent: Respiratory Distress - Cardiovascular Exam Cardiovascular Exam: Irregular Rhythm, +S1, +S2 - GI/Abdominal Exam GI & Abdominal Exam: Normal Bowel Sounds, Soft. absent: Tenderness - Extremities Exam Extremities exam: Positive for: full ROM, normal inspection - Back Exam Back exam: NORMAL INSPECTION - Neurological Exam Neurological exam: Alert, CN II-XII Intact, Oriented x3 - Psychiatric Exam Psychiatric exam: Normal Affect, Normal Mood - Skin Skin Exam: Dry, Intact, Normal Color, Warm Results - Vital Signs Recent Vital Signs: Last Vital Signs Temp 97.8 F 08/30/16 15:24 Pulse 61 08/30/16 15:24 Resp 20 08/30/16 15:24 BP 128/69 08/30/16 15:24 Pulse Ox 96 08/30/16 15:24 - Labs Result Diagrams: 08/30/16 03:28 08/30/16 03:28 Labs: Laboratory Results - last 24 hr 08/29/16 08/30/16 08/30/16 21:05 03:28 03:28 WBC 6.4 RBC 3.19 L Hgb 10.0 L Hct 30.3 L MCV 94.7 H MCH 31.4 H MCHC 33.1 RDW 13.9 Plt Count 139 MPV 8.1 Neut % (Auto) 59.3 Lymph % (Auto) 27.2 [place] % (Auto) 10.5 H Eos % (Auto) 2.3 Baso % (Auto) 0.7 Neut # 3.8 Lymph # 1.7 [place] # 0.7 Eos # 0.1 Baso # 0.0 Retic Count PT 13.2 H INR 1.2 Sodium Potassium Chloride Carbon Dioxide Anion Gap BUN Creatinine Est GFR ( Amer) Est GFR (Non-Af Amer) Random Glucose Hemoglobin A1c Calcium Iron TIBC % Saturation Ferritin Total Bilirubin AST ALT Alkaline Phosphatase Total Creatine Kinase 68 CK-MB (Mass) 2.11 Troponin I, Quant 0.0830 Total Protein Albumin Globulin Albumin/Globulin Ratio Triglycerides Cholesterol LDL Cholesterol Direct HDL Cholesterol Vitamin B12 Folate TSH 3rd Generation 08/30/16 08/30/16 08/30/16 03:28 03:28 03:28 WBC RBC Hgb Hct MCV MCH MCHC RDW Plt Count MPV Neut % (Auto) Lymph % (Auto) [place] % (Auto) Eos % (Auto) Baso % (Auto) Neut # Lymph # [place] # Eos # Baso # Retic Count 1.2 PT INR Sodium 136 Potassium 4.2 Chloride 99 Carbon Dioxide 27 Anion Gap 15 BUN 27 H Creatinine 1.5 Est GFR ( Amer) 54 Est GFR (Non-Af Amer) 44 Random Glucose 97 Hemoglobin A1c 5.3 Calcium 8.8 Iron TIBC % Saturation Ferritin 224.0 Total Bilirubin 0.7 AST 21 ALT 20 L Alkaline Phosphatase 44 Total Creatine Kinase 61 CK-MB (Mass) 1.87 Troponin I, Quant 0.0990 Total Protein 6.8 Albumin 3.7 Globulin 3.1 Albumin/Globulin Ratio 1.2 Triglycerides 88 D Cholesterol 153 LDL Cholesterol Direct 103 HDL Cholesterol 34 Vitamin B12 352 Folate 17.5 TSH 3rd Generation 1.88 08/30/16 03:28 WBC RBC Hgb Hct MCV MCH MCHC RDW Plt Count MPV Neut % (Auto) Lymph % (Auto) [place] % (Auto) Eos % (Auto) Baso % (Auto) Neut # Lymph # [place] # Eos # Baso # Retic Count PT INR Sodium Potassium Chloride Carbon Dioxide Anion Gap BUN Creatinine Est GFR ( Amer) Est GFR (Non-Af Amer) Random Glucose Hemoglobin A1c Calcium Iron 45 L TIBC 268 % Saturation 17 L Ferritin Total Bilirubin AST ALT Alkaline Phosphatase Total Creatine Kinase CK-MB (Mass) Troponin I, Quant Total Protein Albumin Globulin Albumin/Globulin Ratio Triglycerides Cholesterol LDL Cholesterol Direct HDL Cholesterol Vitamin B12 Folate TSH 3rd Generation Assessment & Plan - Assessment and Plan (Free Text) Assessment: This is an 85 yo male with past medical hx of CAD, AAA, MVP, s/p 1 stent, PUD, COPD, a fib presenting with shortness of breath A/P continue asa 81 mg po daily -lasix 40 iv q 12 -heparin 5000 q 8 -lopressor 25 po bid -crestor 20 -cxr shows cardiomegaly and pulmonary venous congestion -ekg initially showed a fib rate in the 70s -pt refusing blood thinner -bnp 5300 -trops .072, .083, .099 -continue current management -echo pending dw Dr. Person
[2016-08-30] MEDS: Albuterol-Ipratrop 3 mg / 0.5 (3 ml) UD INH SCH (20:31)
[2016-08-30] MEDS: Budesonide 0.5 mg/2 ml Inhal Susp UD INH SCH (20:32)
--- NOTE | 2016-08-30 21:09 | CP.PCM.PN ---
Subjective - Date & Time of Evaluation Date of Evaluation: 08/30/16 Time of Evaluation: 10:30 - Subjective Subjective: Patient seen and evaluated Admitted for acute on Chronic systolic CHF elevated ProBNP Continue IV Lasix Objective - Vital Signs/Intake and Output Vital Signs (last 24 hours): Temp Pulse Resp BP Pulse Ox 97.8 F 66 20 128/69 96 08/30/16 15:24 08/30/16 20:35 08/30/16 15:24 08/30/16 18:16 08/30/16 15:24 - Medications Medications: Current Medications Albuterol/Ipratropium (Duoneb 3 Mg/0.5 Mg (3 Ml) Ud) 3 ml INH RQ6 [facility] Last Admin: 08/30/16 20:31 Dose: 3 ml Aspirin (Ecotrin) 81 mg PO DAILY [facility] Last Admin: 08/30/16 09:32 Dose: 81 mg Budesonide (Pulmicort Respules) 0.5 mg INH RQ12 [facility] Last Admin: 08/30/16 20:32 Dose: Not Given Furosemide (Lasix) 40 mg IVP Q12 [facility] Last Admin: 08/30/16 09:33 Dose: 40 mg Heparin Sodium (Porcine) (Heparin) 5,000 units SC Q8 [facility] Last Admin: 08/30/16 14:00 Dose: 5,000 units Metoprolol Tartrate (Lopressor) 25 mg PO BID [facility] Last Admin: 08/30/16 18:16 Dose: 25 mg Pantoprazole Sodium (Protonix Ec Tab) 40 mg PO DAILY [facility] Last Admin: 08/30/16 09:32 Dose: 40 mg Pneumococcal Polyvalent Vaccine (Pneumovax 23 Vaccine) 0.5 ml IM .ONCE ONE Stop: 08/31/16 10:01 Rosuvastatin Calcium (Crestor) 20 mg PO HS [facility] Last Admin: 08/29/16 23:44 Dose: 20 mg - Labs Labs: 08/30/16 03:28 08/30/16 03:28 PT 13.2 SECONDS (9.7-12.2) H 08/30/16 03:28 INR 1.2 08/30/16 03:28
[2016-08-31] MEDS: Albuterol-Ipratrop 3 mg / 0.5 (3 ml) UD INH SCH ×4 (01:26→19:57)
[2016-08-31 06:44] LABS: BASO % 0.6 % (0.0-2.0); EOS # 0.2 K/uL (0.0-0.7); EOS % 3.2 % (0.0-4.0); HEMOGLOBIN 10.6 g/dL (12.0-18.0); LYMPH # 1.5 K/uL (1.0-4.3); LYMPH % 23.7 % (20.0-40.0); MEAN CELL VOLUME 93.3 fL (80.0-94.0); MEAN CORPUSCULAR HEMOGLOBIN 31.5 pg (27.0-31.0); MEAN CORPUSCULAR HGB CONC 33.8 g/dL (33.0-37.0); MEAN PLATELET VOLUME 8.7 fL (7.2-11.7); MONO # 0.7 K/uL (0.0-0.8); MONO % 11.8 % (0.0-10.0); NEUT # 3.8 K/uL (1.8-7.0); NEUT % 60.7 % (50.0-75.0); RBC 3.36 Mil/uL (4.40-5.90); RED CELL DISTRIBUTION WIDTH 13.9 % (11.5-14.5); WHITE BLOOD COUNT 6.2 K/uL (4.8-10.8)
--- NOTE | 2016-08-31 07:06 | CP.PCM.PN ---
Subjective - Date & Time of Evaluation Date of Evaluation: 08/31/16 Time of Evaluation: 07:05 - Subjective Subjective: PGY-[address] Greene's service: Pt seen and examined at bedside. Nursing reports no acute events overnight. Pt found resting comfortably in bed. He reports his shortness of breath has improved since yesterday. He is able to walk around the nurses station without having to stop. He denies abdominal pain today, and admits loos BM last night which is normal for him post-bowel resection for diverticulits. He further denies fever, chills, nausea, chest pain, or SOB. He accepted heparin yesterday but now is again refusing any blood thinners despite the explained risks. Pt is for MUGA scan today. Objective - Vital Signs/Intake and Output Vital Signs (last 24 hours): Temp Pulse Resp BP Pulse Ox 97.8 F 62 20 144/66 95 08/30/16 23:45 08/30/16 23:45 08/30/16 23:45 08/31/16 04:25 08/30/16 23:45 - Medications Medications: Current Medications Albuterol/Ipratropium (Duoneb 3 Mg/0.5 Mg (3 Ml) Ud) 3 ml INH RQ6 [facility] Last Admin: 08/31/16 01:26 Dose: Not Given Aspirin (Ecotrin) 81 mg PO DAILY [facility] Last Admin: 08/30/16 09:32 Dose: 81 mg Budesonide (Pulmicort Respules) 0.5 mg INH RQ12 [facility] Last Admin: 08/30/16 20:32 Dose: Not Given Furosemide (Lasix) 40 mg IVP Q12 [facility] Last Admin: 08/30/16 21:48 Dose: 40 mg Heparin Sodium (Porcine) (Heparin) 5,000 units SC Q8 [facility] Last Admin: 08/31/16 06:09 Dose: 5,000 units Metoprolol Tartrate (Lopressor) 25 mg PO BID [facility] Last Admin: 08/30/16 18:16 Dose: 25 mg Pantoprazole Sodium (Protonix Ec Tab) 40 mg PO DAILY [facility] Last Admin: 08/30/16 09:32 Dose: 40 mg Pneumococcal Polyvalent Vaccine (Pneumovax 23 Vaccine) 0.5 ml IM .ONCE ONE Stop: 08/31/16 10:01 Rosuvastatin Calcium (Crestor) 20 mg PO HS [facility] Last Admin: 08/30/16 21:47 Dose: 20 mg - Labs Labs: 08/30/16 03:28 08/30/16 03:28 PT 13.2 SECONDS (9.7-12.2) H 08/30/16 03:28 INR 1.2 08/30/16 03:28 - Constitutional Appears: Non-toxic, No Acute Distress - Head Exam Head Exam: ATRAUMATIC, NORMAL INSPECTION, NORMOCEPHALIC - Eye Exam Eye Exam: EOMI Pupil Exam: PERRL - ENT Exam ENT Exam: Mucous Membranes Moist - Respiratory Exam Respiratory Exam: Clear to Ausculation Bilateral, NORMAL BREATHING PATTERN - Cardiovascular Exam Cardiovascular Exam: Irregular Rhythm, +S1, +S2 - GI/Abdominal Exam GI & Abdominal Exam: Soft, Normal Bowel Sounds. absent: Distended, Tenderness - Extremities Exam Extremities Exam: Normal Inspection. absent: Pedal Edema - Back Exam Back Exam: absent: CVA tenderness (L), CVA tenderness (R) - Neurological Exam Neurological Exam: Alert, Awake, Oriented x3 - Psychiatric Exam Psychiatric exam: Normal Affect, Normal Mood - Skin Skin Exam: Normal Color, Warm Assessment and Plan - Assessment and Plan (Free Text) Plan: SOB likely due to CHF (systolic dysfunction) exacerbation - Admit to telemetry - ProBNP: 5200 - YOSEPH negative x 3 - Cardiology, Dr. Saha and Dr. Diana consulted - Continue IV lasix - f/u MUGA scan to eval EF - Pulmonology, Dr. Arteaga is consulted - Continue Duonebs, Budesonide - Will need PFT as outpatient - ECHO: Mild to moderate LV systolic dysfunction. EF 38%. Dilated LV and LA. Trace AR. Moderate TR. normally functioning bioprosthetic mitral valve. - Strict Is and Os, daily weights ASA 81mg PO daily Metoprolol 25mg PO BID Lasix 40 mg IVP BID TSH: WNL, Lipid panel: WNL A fib, chronic - Presently rate-controlled - Metoprolol 25 mg po BID - Aspirin 81 mg po qd - Patient consented to heparin yesterday, but is refusing plavix for anticoagulation - Pt understands risk of stroke with anticoagulation. Has trepidation about blood thinners from previous GI bleed. Epigastric pain Pt has hx of PUD Continues to improve, tolerating diet Dr. Bishop/Kylee consulted, help appreciated: - Continue protonix, f/u as OPDX CAD s/p stent - Echo: Mild to moderate LV systolic dysfunction. EF 38%. Dilated LV and LA. Trace AR. Moderate TR. normally functioning bioprosthetic mitral valve. - Patient will be started on Aspirin, Crestor 20 mg po qd, Metoprolol 25 mg po bid Hx of MVR with bioprosthetic valve - Echo: Mild to moderate LV systolic dysfunction. EF 38%. Dilated LV and LA. Trace AR. Moderate TR. normally functioning bioprosthetic mitral valve. Prophylaxis - SCDs - Patient consenting to Heparin at this time - Protonix 40 mg po Daily Disposition: Palliative Care consult: Pt elected DNR/DNI Case discussed with attending, Dr. Ramona Chacon PGY-1
[2016-08-31 07:11] LABS: ALBUMIN 3.8 g/dL (3.5-5.0)
[2016-08-31 07:14] LABS: ALB/GLOB RATIO 1.3 (1.0-2.1)
[2016-08-31 07:15] LABS: CALCIUM 8.8 mg/dl (8.6-10.4); MAGNESIUM 1.6 mg/dL (1.6-2.3)
[2016-08-31] MEDS: Budesonide 0.5 mg/2 ml Inhal Susp UD INH SCH ×2 (07:40→19:57)
[2016-08-31] MEDS ORDERED: Pneumococcal 23-Valent Vaccine IM ONE (10:00)
--- NOTE | 2016-08-31 10:53 | CP.PCM.PN ---
Subjective - Date & Time of Evaluation Date of Evaluation: 08/31/16 Time of Evaluation: 10:48 - Subjective Subjective: PGY2 Progress note- Dr. Person Pt seen and examined at bedside. He explains that he is feeling better today and is no longer having chest pain and shortness of breath. He continues to refuse any "blood thinners". He denies fever, chills, nausea, vomiting, CP, SOB. Pt had echo done yesterday which showed reduced EF of 35%. He will be going for MUGA scan today. Objective - Vital Signs/Intake and Output Vital Signs (last 24 hours): Temp Pulse Resp BP Pulse Ox 97.8 F 62 20 144/66 95 08/30/16 23:45 08/30/16 23:45 08/30/16 23:45 08/31/16 04:25 08/30/16 23:45 - Medications Medications: Current Medications Albuterol/Ipratropium (Duoneb 3 Mg/0.5 Mg (3 Ml) Ud) 3 ml INH RQ6 [facility] Last Admin: 08/31/16 07:40 Dose: 3 ml Aspirin (Ecotrin) 81 mg PO DAILY [facility] Last Admin: 08/30/16 09:32 Dose: 81 mg Budesonide (Pulmicort Respules) 0.5 mg INH RQ12 [facility] Last Admin: 08/31/16 07:40 Dose: 0.5 mg Furosemide (Lasix) 40 mg IVP Q12 [facility] Last Admin: 08/30/16 21:48 Dose: 40 mg Heparin Sodium (Porcine) (Heparin) 5,000 units SC Q8 [facility] Last Admin: 08/31/16 06:09 Dose: 5,000 units Metoprolol Tartrate (Lopressor) 25 mg PO BID [facility] Last Admin: 08/30/16 18:16 Dose: 25 mg Pantoprazole Sodium (Protonix Ec Tab) 40 mg PO DAILY [facility] Last Admin: 08/30/16 09:32 Dose: 40 mg Rosuvastatin Calcium (Crestor) 20 mg PO HS [facility] Last Admin: 08/30/16 21:47 Dose: 20 mg - Labs Labs: 08/31/16 06:29 08/31/16 06:29 PT 13.2 SECONDS (9.7-12.2) H 08/30/16 03:28 INR 1.2 08/30/16 03:28 - Constitutional Appears: No Acute Distress - Head Exam Head Exam: ATRAUMATIC - Eye Exam Eye Exam: EOMI, Normal appearance - ENT Exam ENT Exam: Mucous Membranes Moist - Respiratory Exam Respiratory Exam: Clear to Ausculation Bilateral. absent: Chest Wall Tenderness , Wheezes, Respiratory Distress - Cardiovascular Exam Cardiovascular Exam: Irregular Rhythm - GI/Abdominal Exam GI & Abdominal Exam: Soft. absent: Distended, Tenderness - Extremities Exam Extremities Exam: Normal Inspection. absent: Pedal Edema - Neurological Exam Neurological Exam: Alert, Awake, Oriented x3 Assessment and Plan - Assessment and Plan (Free Text) Assessment: 85 y/o male w/ hx of CAD, AAA, MVP, s/p 1 stent, PUD, COPD, a fib presenting with shortness of breath that is improved this morning Plan: CHF Exacerbation -continue medications: asa 81 mg po daily lasix 40 iv q 12hrs heparin 5000 q 8hrs lopressor 25mg po bid crestor 20mg PO qhs -CXR: cardiomegaly and pulmonary venous congestion -EKG: afib with rate in 70's -bnp 5300 -trops 0.072, 0.083, 0.099 -echo: mild-mod LV systolic dysfunction, dilated LV/LA, Trace AR, mod TR, normally functioning bioprosthetic MV; EF 35% -MUGA scan pending- follow up results Pt is refusing to take any blood thinner. Discussed the benefits and need for Plavix in depth with the patient, however he continues to refuse any medications of this nature. He is rate controlled, continue medications as detailed above.
[2016-08-31] MEDS: Pantoprazole 40 mg EC Tab PO SCH (10:59)
--- NOTE | 2016-08-31 11:29 | CP.PCM.PN ---
Subjective - Date & Time of Evaluation Date of Evaluation: 08/31/16 Time of Evaluation: 08:00 - Subjective Subjective: patient seen and examined. Patient states breathing has improved and is able to walk Denies cough, denies fever chills Ejection fraction 35% Scheduled for MUGA scan Continue nebulizer treatment Will need pulmonary function test Objective - Vital Signs/Intake and Output Vital Signs (last 24 hours): Temp Pulse Resp BP Pulse Ox 97.8 F 62 20 144/66 95 08/30/16 23:45 08/30/16 23:45 08/30/16 23:45 08/31/16 10:59 08/30/16 23:45 - Medications Medications: Current Medications Albuterol/Ipratropium (Duoneb 3 Mg/0.5 Mg (3 Ml) Ud) 3 ml INH RQ6 [facility] Last Admin: 08/31/16 07:40 Dose: 3 ml Aspirin (Ecotrin) 81 mg PO DAILY [facility] Last Admin: 08/31/16 10:58 Dose: 81 mg Budesonide (Pulmicort Respules) 0.5 mg INH RQ12 [facility] Last Admin: 08/31/16 07:40 Dose: 0.5 mg Furosemide (Lasix) 40 mg IVP Q12 [facility] Last Admin: 08/31/16 10:59 Dose: 40 mg Heparin Sodium (Porcine) (Heparin) 5,000 units SC Q8 [facility] Last Admin: 08/31/16 06:09 Dose: 5,000 units Metoprolol Tartrate (Lopressor) 25 mg PO BID [facility] Last Admin: 08/30/16 18:16 Dose: 25 mg Pantoprazole Sodium (Protonix Ec Tab) 40 mg PO DAILY [facility] Last Admin: 08/31/16 10:59 Dose: 40 mg Rosuvastatin Calcium (Crestor) 20 mg PO HS [facility] Last Admin: 08/30/16 21:47 Dose: 20 mg - Labs Labs: 08/31/16 06:29 08/31/16 06:29 PT 13.2 SECONDS (9.7-12.2) H 08/30/16 03:28 INR 1.2 08/30/16 03:28 Assessment and Plan (1) Dyspnea Status: Acute (2) GERD (gastroesophageal reflux disease) Status: Acute
--- NOTE | 2016-08-31 13:03 | CP.PCM.PN ---
Subjective - Date & Time of Evaluation Date of Evaluation: 08/31/16 Time of Evaluation: 12:50 - Subjective Subjective: F/U abdom pain. Pt reports pain is better. Eating normally. Denies constip, diarrhea, RB, melena, fever, chills, CP, hemoptysis Objective - Vital Signs/Intake and Output Vital Signs (last 24 hours): Temp Pulse Resp BP Pulse Ox 97.8 F 62 20 144/66 95 08/30/16 23:45 08/30/16 23:45 08/30/16 23:45 08/31/16 11:00 08/30/16 23:45 - Medications Medications: Current Medications Albuterol/Ipratropium (Duoneb 3 Mg/0.5 Mg (3 Ml) Ud) 3 ml INH RQ6 [facility] Last Admin: 08/31/16 07:40 Dose: 3 ml Aspirin (Ecotrin) 81 mg PO DAILY [facility] Last Admin: 08/31/16 10:58 Dose: 81 mg Budesonide (Pulmicort Respules) 0.5 mg INH RQ12 [facility] Last Admin: 08/31/16 07:40 Dose: 0.5 mg Furosemide (Lasix) 40 mg IVP Q12 [facility] Last Admin: 08/31/16 10:59 Dose: 40 mg Heparin Sodium (Porcine) (Heparin) 5,000 units SC Q8 [facility] Last Admin: 08/31/16 06:09 Dose: 5,000 units Metoprolol Tartrate (Lopressor) 25 mg PO BID [facility] Last Admin: 08/31/16 11:00 Dose: 25 mg Pantoprazole Sodium (Protonix Ec Tab) 40 mg PO DAILY [facility] Last Admin: 08/31/16 10:59 Dose: 40 mg Rosuvastatin Calcium (Crestor) 20 mg PO HS [facility] Last Admin: 08/30/16 21:47 Dose: 20 mg - Labs Labs: 08/31/16 06:29 08/31/16 06:29 PT 13.2 SECONDS (9.7-12.2) H 08/30/16 03:28 INR 1.2 08/30/16 03:28 - Constitutional Appears: Well - Respiratory Exam Respiratory Exam: Clear to Ausculation Bilateral - Cardiovascular Exam Cardiovascular Exam: RRR - GI/Abdominal Exam GI & Abdominal Exam: Soft, Normal Bowel Sounds. absent: Guarding, Tenderness, Mass - Neurological Exam Neurological Exam: Alert, Oriented x3 Assessment and Plan (1) Epigastric pain Assessment & Plan: Better. Continue diet. I told him to see me in the office. Status: Acute (2) GERD (gastroesophageal reflux disease) Status: Acute (3) Anemia Status: Acute (4) Dehydration Status: Acute (5) CHF exacerbation Status: Acute (6) Dyspnea Status: Acute
--- NOTE | 2016-08-31 14:29 | CP.PCM.CON ---
History of Present Illness - History of Present Illness History of Present Illness: CC: progressive short 85 year old male with past medical history of mitral valve prolapse with valve replacement in 2009 with bioprsthetic valve, CAD s/p 1 stent, PUD, COPD, a fib not on anticoagulation, AAA with stent, CHF presents for worsening shortness of breath x 1.5 days. Patient states that he has had shortness of breath for many years but recently it has worsened. He is normally able to walk about 1 block before he gets short of breath. Since yesterday morning, pt states that he gets short of breath from just walking around his house. Patient denies having any CP, or LE edema. Patient also c/o worsening epigastric pain. Due to this epigastric pain, patient stopped taking all of his medications except for Ranitidine. Patient was seen by research manager, Dr. Saha in office today and was then sent to ED. At this time, patient denies having any SOB, CP, N/V/D/C. Patient does complain of epigastric pain. Patient is unsure when last echo, EGD or colonoscopy were done. 12 point ROS are negative except for the above mentioned. PMHx: stated above Sx: CABG,cardiac stent, AAA with stent placement, partial colectomy for diverticular bleeing, cholecystectomy Allergies: Avelox (rash) Meds: see MAR Social: former smoker, quit 17 years ago, smoked for 50 years. No ETOH or drug use. Lives at home with niece and nephew FH: no CKD Denies CKD but hx shows he is followed for CKD as outpatient Hospital course noted for progressive ANNABEL since starting IV lasix Now less dyspneic- lying flat comfortably. Review of Systems - Constitutional Constitutional: Fatigue, Weakness - EENT Eyes: absent: As Per HPI, Blind Spots, Blurred Vision, Change in Vision, Decreased Night Vision, Diplopia, Discharge, Dry Eye, Exophthalmos, Floaters, Irritation, Itchy Eyes, Loss of Peripheral Vision, Pain, Photophobia, Requires Corrective Lenses, Sees Flashes, Spots in Vision, Tunnel Vision, Other Visual Disturbances, Loss of Vision, Other Ears: absent: As Per HPI, Decreased Hearing, Ear Discharge, Ear Pain, Tinnitus, Abnormal Hearing, Disequilibrium, Dizziness, Other - Cardiovascular Cardiovascular: Dyspnea on Exertion, Edema, Paroxysmal Nocturnal Dyspnea - Respiratory Respiratory: Cough, Dyspnea on Exertion - Gastrointestinal Gastrointestinal: Abdominal Pain, Constipation - Genitourinary Genitourinary: Change in Urinary Stream, Urinary Frequency - Musculoskeletal Musculoskeletal: Muscle Weakness, Stiffness - Integumentary Integumentary: absent: As Per HPI, Acne, Alopecia, Bleeding Lesions, Change in Hair, Change in Nails, Change in Pigmentation, Changing Lesions, Dry Skin, Erythema, Furuncle, Hirsutism, Lesions, New Lesions, Non-Healing Lesions, Photosensitivity, Pruritus, Rash, Skin Pain, Skin Ulcer, Sores, Striae, Swelling , Unusual Bruising, Wounds, Jaundice, Other - Neurological Neurological: absent: As Per HPI, Abnormal Gait, Abnormal Hearing, Abnormal Movements, Abnormal Speech, Behavioral Changes, Burning Sensations, Confusion, Convulsions, Disequilibrium, Dizziness, Numbness, Focal Weakness, Frequent Falls , Headaches, Lack of Coordination, Loss of Vision, Memory Loss, Paresthesias, Radicular Pain, Restless Legs, Sensory Deficit, Syncope, Tingling, Tremor, Vertigo, Weakness, Other Visual Disturbances, Other Past Patient History - Infectious Disease Hx of Infectious Diseases: None - Past Medical History & Family History Past Medical History?: Yes Past Family History: Reviewed and not pertinent - Past Social History Smoking Status: Former Smoker Chewing Tobacco Use: No Cigar Use: No Alcohol: None Drugs: Denies - CARDIAC Hx Cardiac Disorders: Yes (CAD) Hx Congestive Heart Failure: Yes - PULMONARY Hx Emphysema: Yes - NEUROLOGICAL Hx Neurological Disorder: Yes Hx Dizziness: Yes - HEENT Hx HEENT Problems: Yes Hx Cataracts: Yes (BILAT IOL) Other/Comment: LEFTB EYELID SLIGHT EDEMA SX 2 WEEKSCAGO - RENAL Hx Chronic Kidney Disease: Yes (RENAL INSUFFICIENCY) Hx Kidney Stones: Yes - ENDOCRINE/METABOLIC Hx Endocrine Disorders: No - HEMATOLOGICAL/ONCOLOGICAL Hx Anemia: Yes - INTEGUMENTARY Hx Dermatological Problems: No - MUSCULOSKELETAL/RHEUMATOLOGICAL Hx Arthritis: Yes - GASTROINTESTINAL Hx Gall Bladder Disease: Yes (CHOLECYSTECTOMY) - GENITOURINARY/GYNECOLOGICAL Hx Genitourinary Disorders: Yes Hx Prostate Problems: Yes - PSYCHIATRIC Hx Psychophysiologic Disorder: No Hx Substance Use: No - SURGICAL HISTORY Hx Surgeries: Yes Hx Abdominal Aortic Aneurysm Repair: Yes (stent) Hx Cholecystectomy: Yes Hx Coronary Artery Bypass Graft: Yes Hx Coronary Stent: Yes - ANESTHESIA Hx Anesthesia: Yes Hx Anesthesia Reactions: No Hx Malignant Hyperthermia: No Meds Allergies/Adverse Reactions: Allergies Allergy/AdvReac Type Severity Reaction Status Date / Time moxifloxacin [From Avelox] Allergy Intermediate Verified 08/29/16 14:36 - Medications Medications: Current Medications Albuterol/Ipratropium (Duoneb 3 Mg/0.5 Mg (3 Ml) Ud) 3 ml INH RQ6 [facility] Last Admin: 08/31/16 13:36 Dose: 3 ml Aspirin (Ecotrin) 81 mg PO DAILY [facility] Last Admin: 08/31/16 10:58 Dose: 81 mg Budesonide (Pulmicort Respules) 0.5 mg INH RQ12 [facility] Last Admin: 08/31/16 07:40 Dose: 0.5 mg Furosemide (Lasix) 40 mg IVP Q12 [facility] Last Admin: 08/31/16 10:59 Dose: 40 mg Heparin Sodium (Porcine) (Heparin) 5,000 units SC Q8 [facility] Last Admin: 08/31/16 13:10 Dose: 5,000 units Metoprolol Tartrate (Lopressor) 25 mg PO BID [facility] Last Admin: 08/31/16 11:00 Dose: 25 mg Pantoprazole Sodium (Protonix Ec Tab) 40 mg PO DAILY [facility] Last Admin: 08/31/16 10:59 Dose: 40 mg Rosuvastatin Calcium (Crestor) 20 mg PO HS [facility] Last Admin: 08/30/16 21:47 Dose: 20 mg Physical Exam - Constitutional Appears: No Acute Distress, Chronically Ill - Head Exam Head Exam: ATRAUMATIC, NORMAL INSPECTION - Eye Exam Eye Exam: EOMI, Normal appearance - ENT Exam ENT Exam: Normal Exam, Normal External Ear Exam - Neck Exam Neck exam: Positive for: Normal Inspection. Negative for: Tenderness - Respiratory Exam Respiratory Exam: Clear to Auscultation Bilateral, NORMAL BREATHING PATTERN - Cardiovascular Exam Cardiovascular Exam: Irregular Rhythm, +S1 - GI/Abdominal Exam GI & Abdominal Exam: Soft. absent: Tenderness - Extremities Exam Extremities exam: Positive for: normal inspection. Negative for: tenderness - Neurological Exam Neurological exam: CN II-XII Intact, Oriented x3 - Skin Skin Exam: Dry, Warm Results - Vital Signs Recent Vital Signs: Last Vital Signs Temp 97.8 F 08/30/16 23:45 Pulse 62 08/30/16 23:45 Resp 20 08/30/16 23:45 BP 144/66 08/31/16 11:00 Pulse Ox 95 07/20/17 23:45 - Labs Result Diagrams: 08/31/16 06:29 08/31/16 06:29 Labs: Laboratory Results - last 24 hr 08/31/16 08/31/16 06:29 06:29 WBC 6.2 RBC 3.36 L Hgb 10.6 L Hct 31.4 L MCV 93.3 MCH 31.5 H MCHC 33.8 RDW 13.9 Plt Count 159 MPV 8.7 Neut % (Auto) 60.7 Lymph % (Auto) 23.7 [place] % (Auto) 11.8 H Eos % (Auto) 3.2 Baso % (Auto) 0.6 Neut # 3.8 Lymph # 1.5 Free[place] # 0.7 Eos # 0.2 Baso # 0.0 Sodium 135 Potassium 4.1 Chloride 96 L Carbon Dioxide 28 Anion Gap 15 BUN 34 H Creatinine 1.9 H Est GFR ( Amer) 41 Est GFR (Non-Af Amer) 34 Random Glucose 104 Calcium 8.8 Phosphorus 4.5 Magnesium 1.6 Total Bilirubin 0.6 AST 19 ALT 22 Alkaline Phosphatase 44 Total Protein 6.7 Albumin 3.8 Globulin 2.9 Albumin/Globulin Ratio 1.3 Assessment & Plan - Assessment and Plan (Free Text) Assessment: ANNABEL from overdiuresis Cardio-renal syndrome AFib CKD 3 hx CAD- postCABG, stent MV repair DL AAA- post stent htn emphysema diverticular disease Plan: Change to po lasix Renal US check for proteinuria Serial chemistries
--- NOTE | 2016-08-31 16:39 | US ---
PROCEDURE: Ultrasound of the Kidneys HISTORY: [place] COMPARISON: 09/21/2015. TECHNIQUE: Sonogram of the kidneys. FINDINGS: RIGHT KIDNEY: Measures: 10.0 cm. Normal in size, contour and echogenicity. No stone, solid mass lesion or hydronephrosis visualized. LEFT KIDNEY: Measures: 9.5 cm. Normal in size, contour and echogenicity. No stone, solid mass lesion or hydronephrosis visualized. OTHER FINDINGS: Re-demonstration of a roughly 7 centimeter distal abdominal aortic aneurysm with abundant mural thrombus. IMPRESSION: Distal abdominal aortic aneurysm again noted. Grossly normal appearance of the kidneys.
--- NOTE | 2016-08-31 21:46 | CP.PCM.PN ---
Subjective - Date & Time of Evaluation Date of Evaluation: 08/31/16 Time of Evaluation: 07:45 - Subjective Subjective: Patient with improved breathing and symptoms MUGA scan shows EF of 45% Objective - Vital Signs/Intake and Output Vital Signs (last 24 hours): Temp Pulse Resp BP Pulse Ox 98.4 F 68 20 132/81 96 08/31/16 16:09 08/31/16 20:29 08/31/16 16:09 08/31/16 18:10 08/31/16 16:09 - Medications Medications: Current Medications Albuterol/Ipratropium (Duoneb 3 Mg/0.5 Mg (3 Ml) Ud) 3 ml INH RQ6 [facility] Last Admin: 08/31/16 19:57 Dose: 3 ml Aspirin (Ecotrin) 81 mg PO DAILY [facility] Last Admin: 08/31/16 10:58 Dose: 81 mg Budesonide (Pulmicort Respules) 0.5 mg INH RQ12 [facility] Last Admin: 08/31/16 19:57 Dose: 0.5 mg Furosemide (Lasix) 40 mg PO BID [facility] Last Admin: 08/31/16 18:09 Dose: 40 mg Heparin Sodium (Porcine) (Heparin) 5,000 units SC Q8 [facility] Last Admin: 08/31/16 13:10 Dose: 5,000 units Metoprolol Tartrate (Lopressor) 25 mg PO BID [facility] Last Admin: 08/31/16 18:10 Dose: 25 mg Pantoprazole Sodium (Protonix Ec Tab) 40 mg PO DAILY [facility] Last Admin: 08/31/16 10:59 Dose: 40 mg Rosuvastatin Calcium (Crestor) 10 mg PO HS [facility] - Labs Labs: PT 13.2 SECONDS (9.7-12.2) H 08/30/16 03:28 INR 1.2 08/30/16 03:28
--- NOTE | 2016-08-31 22:03 | CARD ---
APPROVED REPORT INDICATION CHF/ EVALUATE EJECTION FRACTION PROCEDURE The above named patient recieved 24.8 millicuries of Tc99m tagged red blood cells intravenously. After achieving equilibrium, gated imaging of 16/frame/cycle was performed utillizing Gamma camera interfaced with a digital computer and gated device. Gated imaging was then performed in the left anterior oblique, anterior, and the left lateral projections. Findings Calculated LV Ejection Fraction is 46%. Normal Ejection Fraction for this facility is 55%. Impressions Abnormal ADRIANA study. Calculated Ejection Fraction is 46 %.
[2016-08-31 23:14] LABS: CREATININE, RANDOM URINE 33.8 mg/dL
[2016-08-31 23:30] LABS: URINE BACTERIA RARE (<OCC); URINE BILIRUBIN NEGATIVE (NEGATIVE); URINE BLOOD 1+ (NEGATIVE); URINE CLARITY Clear (Clear); URINE COLOR Straw (YELLOW); URINE GLUCOSE (UA) NORMAL (Normal); URINE LEUKOCYTE ESTERASE NEG Leu/uL (Negative); URINE NITRATE NEGATIVE (NEGATIVE); URINE PROTEIN NEGATIVE (NEGATIVE); URINE UROBILINOGEN NORMAL mg/dL (0.2-1.0)
--- NOTE | 2016-09-01 07:12 | CP.PCM.PN ---
Subjective - Date & Time of Evaluation Date of Evaluation: 09/01/16 Time of Evaluation: 07:11 Objective - Vital Signs/Intake and Output Vital Signs (last 24 hours): Temp Pulse Resp BP Pulse Ox 97.5 F L 73 20 113/74 95 09/01/16 00:24 09/01/16 01:40 09/01/16 00:24 09/01/16 00:24 09/01/16 00:24 Intake and Output: 09/01/16 09/01/16 06:59 18:59 Intake Total 640 Balance 640 - Medications Medications: Current Medications Albuterol/Ipratropium (Duoneb 3 Mg/0.5 Mg (3 Ml) Ud) 3 ml INH RQ6 [facility] Last Admin: 08/31/16 19:57 Dose: 3 ml Aspirin (Ecotrin) 81 mg PO DAILY [facility] Last Admin: 08/31/16 10:58 Dose: 81 mg Budesonide (Pulmicort Respules) 0.5 mg INH RQ12 [facility] Last Admin: 08/31/16 19:57 Dose: 0.5 mg Furosemide (Lasix) 40 mg PO BID [facility] Last Admin: 08/31/16 18:09 Dose: 40 mg Heparin Sodium (Porcine) (Heparin) 5,000 units SC Q8 [facility] Last Admin: 09/01/16 05:19 Dose: 5,000 units Metoprolol Tartrate (Lopressor) 25 mg PO BID [facility] Last Admin: 08/31/16 18:10 Dose: 25 mg Pantoprazole Sodium (Protonix Ec Tab) 40 mg PO DAILY [facility] Last Admin: 08/31/16 10:59 Dose: 40 mg Rosuvastatin Calcium (Crestor) 10 mg PO HS [facility] Last Admin: 08/31/16 21:49 Dose: 10 mg - Labs Labs: PT 13.2 SECONDS (9.7-12.2) H 08/30/16 03:28 INR 1.2 08/30/16 03:28
--- NOTE | 2016-09-01 07:14 | CP.PCM.PN ---
Subjective - Date & Time of Evaluation Date of Evaluation: 09/01/16 Time of Evaluation: 06:54 - Subjective Subjective: PGY-[address] Greene's service: Pt seen and examined at bedside. Nursing reports no acute events overnight. Pt found resting comfortably in bed. He reports his shortness of breath has improved since yesterday. Objective - Vital Signs/Intake and Output Vital Signs (last 24 hours): Temp Pulse Resp BP Pulse Ox 97.5 F L 73 20 113/74 95 09/01/16 00:24 09/01/16 01:40 09/01/16 00:24 09/01/16 00:24 09/01/16 00:24 Intake and Output: 08/31/16 09/01/16 18:59 06:59 Intake Total 640 Balance 640 - Medications Medications: Current Medications Albuterol/Ipratropium (Duoneb 3 Mg/0.5 Mg (3 Ml) Ud) 3 ml INH RQ6 [facility] Last Admin: 08/31/16 19:57 Dose: 3 ml Aspirin (Ecotrin) 81 mg PO DAILY [facility] Last Admin: 08/31/16 10:58 Dose: 81 mg Budesonide (Pulmicort Respules) 0.5 mg INH RQ12 [facility] Last Admin: 08/31/16 19:57 Dose: 0.5 mg Furosemide (Lasix) 40 mg PO BID [facility] Last Admin: 08/31/16 18:09 Dose: 40 mg Heparin Sodium (Porcine) (Heparin) 5,000 units SC Q8 [facility] Last Admin: 09/01/16 05:19 Dose: 5,000 units Metoprolol Tartrate (Lopressor) 25 mg PO BID [facility] Last Admin: 08/31/16 18:10 Dose: 25 mg Pantoprazole Sodium (Protonix Ec Tab) 40 mg PO DAILY [facility] Last Admin: 08/31/16 10:59 Dose: 40 mg Rosuvastatin Calcium (Crestor) 10 mg PO HS [facility] Last Admin: 08/31/16 21:49 Dose: 10 mg - Labs Labs: PT 13.2 SECONDS (9.7-12.2) H 08/30/16 03:28 INR 1.2 08/30/16 03:28 Assessment and Plan - Assessment and Plan (Free Text) Plan: SOB likely due to CHF (systolic dysfunction) exacerbation - Admit to telemetry - ProBNP: 5200 - YOSEPH negative x 3 - ECHO (08/29/16): Mild to moderate LV systolic dysfunction. EF 38%. Dilated LV and LA. Trace AR. Moderate TR. normally functioning bioprosthetic mitral valve. - MUGA scan (08/31/16): calculated at 46%. - Cardiology, Dr. Saha and Dr. Diana consulted - Continue IV lasix - Pulmonology, Dr. Arteaga is consulted - Continue Duonebs, Budesonide - Will need PFT as outpatient ASA 81mg PO daily Metoprolol 25mg PO BID Lasix 40 mg PO BID TSH: WNL, Lipid panel: WNL A fib, chronic - Presently rate-controlled - Metoprolol 25 mg po BID - Aspirin 81 mg po qd - Patient consented to heparin yesterday, but is refusing plavix for anticoagulation - Pt understands risk of stroke with anticoagulation. Has trepidation about blood thinners from previous GI bleed. Acute on chronic renal insufficiency ANNABEL from overdiueresis Cardio-renal syndrome Cr on admission 1.4, up to 1.[address] Berrios consulted - change to PO Lasix Epigastric pain Pt has hx of PUD Continues to improve, tolerating diet Dr. Bishop/Kylee consulted, help appreciated: - Continue protonix, f/u as OPDX CAD s/p stent - Echo: Mild to moderate LV systolic dysfunction. EF 38%. Dilated LV and LA. Trace AR. Moderate TR. normally functioning bioprosthetic mitral valve. Aspirin Crestor 20 mg po qd Metoprolol 25 mg po bid Hx of MVR with bioprosthetic valve - Echo: Mild to moderate LV systolic dysfunction. EF 38%. Dilated LV and LA. Trace AR. Moderate TR. normally functioning bioprosthetic mitral valve. - MUGA: 46% EF Prophylaxis - SCDs - Patient consenting to Heparin at this time - Protonix 40 mg po Daily Disposition: Palliative Care consult: Pt elected DNR/DNI Case discussed with attending, Dr. Ramona Chacon PGY-1
[2016-09-01 07:17] LABS: BASO % 0.6 % (0.0-2.0); EOS # 0.2 K/uL (0.0-0.7); EOS % 4.1 % (0.0-4.0); HEMOGLOBIN 10.2 g/dL (12.0-18.0); LYMPH # 1.4 K/uL (1.0-4.3); LYMPH % 25.8 % (20.0-40.0); MEAN CORPUSCULAR HEMOGLOBIN 31.7 pg (27.0-31.0); MEAN CORPUSCULAR HGB CONC 34.1 g/dL (33.0-37.0); MEAN PLATELET VOLUME 8.6 fL (7.2-11.7); MONO # 0.6 K/uL (0.0-0.8); MONO % 10.5 % (0.0-10.0); NEUT # 3.2 K/uL (1.8-7.0); RBC 3.23 Mil/uL (4.40-5.90); RED CELL DISTRIBUTION WIDTH 13.4 % (11.5-14.5); WHITE BLOOD COUNT 5.4 K/uL (4.8-10.8)
[2016-09-01 07:32] LABS: ALB/GLOB RATIO 1.3 (1.0-2.1); ALBUMIN 3.8 g/dL (3.5-5.0); CALCIUM 8.8 mg/dl (8.6-10.4); MAGNESIUM 1.6 mg/dL (1.6-2.3)
[2016-09-01] MEDS: Budesonide 0.5 mg/2 ml Inhal Susp UD INH SCH (07:58)
[2016-09-01] MEDS: Albuterol-Ipratrop 3 mg / 0.5 (3 ml) UD INH SCH ×2 (07:58→13:04)
[2016-09-01 08:05] VITALS: TEMP 97
[2016-09-01 09:36] VITALS: BP 130/85; RESP 18; O2SAT 95
[2016-09-01] MEDS: Pantoprazole 40 mg EC Tab PO SCH (09:37)
--- NOTE | 2016-09-01 10:44 | CP.PCM.PN ---
Subjective - Date & Time of Evaluation Date of Evaluation: 09/01/16 Time of Evaluation: 10:40 - Subjective Subjective: afebrile bp stable hb stable renal function stable awake alert and comfortable sitting in bed intermittent indigestion from his reflux ROS No chills fever no chest pain Cough no sputum no abd pain nausea vomiting diarrhea no dysuria hematuria no headache dizziness no calf pain FH diabetes SH no cigarettes,alcohol or drugs Objective - Vital Signs/Intake and Output Vital Signs (last 24 hours): Temp Pulse Resp BP Pulse Ox 97 F L 91 H 18 130/85 95 09/01/16 07:00 09/01/16 09:36 09/01/16 09:36 09/01/16 09:37 09/01/16 09:36 Intake and Output: 09/01/16 09/01/16 06:59 18:59 Intake Total 640 Balance 640 - Medications Medications: Current Medications Albuterol/Ipratropium (Duoneb 3 Mg/0.5 Mg (3 Ml) Ud) 3 ml INH RQ6 [facility] Last Admin: 09/01/16 07:58 Dose: 3 ml Aspirin (Ecotrin) 81 mg PO DAILY [facility] Last Admin: 09/01/16 09:37 Dose: 81 mg Budesonide (Pulmicort Respules) 0.5 mg INH RQ12 [facility] Last Admin: 09/01/16 07:58 Dose: 0.5 mg Furosemide (Lasix) 40 mg PO BID [facility] Last Admin: 09/01/16 09:37 Dose: 40 mg Heparin Sodium (Porcine) (Heparin) 5,000 units SC Q8 [facility] Last Admin: 09/01/16 05:19 Dose: 5,000 units Metoprolol Tartrate (Lopressor) 25 mg PO BID [facility] Last Admin: 09/01/16 09:37 Dose: 25 mg Pantoprazole Sodium (Protonix Ec Tab) 40 mg PO DAILY [facility] Last Admin: 09/01/16 09:37 Dose: 40 mg Rosuvastatin Calcium (Crestor) 10 mg PO HS [facility] Last Admin: 08/31/16 21:49 Dose: 10 mg - Labs Labs: 09/01/16 06:57 09/01/16 06:57 PT 13.2 SECONDS (9.7-12.2) H 08/30/16 03:28 INR 1.2 08/30/16 03:28 - Constitutional Appears: Well, Non-toxic, No Acute Distress - Eye Exam Eye Exam: absent: Conjunctival injection - ENT Exam ENT Exam: Mucous Membranes Moist - Respiratory Exam Respiratory Exam: Clear to Ausculation Bilateral - Cardiovascular Exam Cardiovascular Exam: Irregular Rhythm - GI/Abdominal Exam GI & Abdominal Exam: Soft. absent: Distended, Tenderness - Extremities Exam Extremities Exam: absent: Calf Tenderness - Back Exam Back Exam: absent: CVA tenderness (L), CVA tenderness (R) - Psychiatric Exam Psychiatric exam: absent: Normal Affect, Normal Mood - Skin Skin Exam: Dry Assessment and Plan (1) CKD (chronic kidney disease) stage 3, GFR 30-59 ml/min Status: Acute (2) CHF exacerbation Status: Acute (3) GERD (gastroesophageal reflux disease) Status: Acute (4) ANNABEL (acute kidney injury) Status: Acute - Assessment and Plan (Free Text) Plan: agree with switching to oral lasix consider reducing dose from renal viewpoint can discharge and will follow in office
--- NOTE | 2016-09-01 11:42 | CP.PCM.DIS ---
<Humberto Chacon - Last Filed: 09/01/16 22:14> Provider - Provider Date of Admission: 08/31/16 15:49 Attending physician: Jhony Gregory MD Primary care physician: MARIA A: Yaya Consults: CArdiology: Naya Saha GI: Kylee Pulm: Chandler Nephro: Yash Time Spent in preparation of Discharge (in minutes): 45 Diagnosis - Discharge Diagnosis (1) CHF exacerbation Status: Acute Comment: EF 38% on ECHO; 46% on MUGA. DR. Person/Yifan consulted (2) CKD (chronic kidney disease) stage 3, GFR 30-59 ml/min Status: Acute Comment: Cr increased from admission, (1.4 admission, 2.0 on max). - baseline from prior admissions 1.6. - hold lisinopril, and lasix at time of dc. - pt follow up with Dr. Berrios's group this week Hospital Course - Lab Results Lab Results: Most Recent Lab Values WBC 5.4 K/uL (4.8-10.8) 09/01/16 06:57 RBC 3.23 Mil/uL (4.40-5.90) L 09/01/16 06:57 Hgb 10.2 g/dL (12.0-18.0) L 09/01/16 06:57 Hct 30.0 % (35.0-51.0) L 09/01/16 06:57 MCV 93.0 fL (80.0-94.0) 09/01/16 06:57 MCH 31.7 pg (27.0-31.0) H 09/01/16 06:57 MCHC 34.1 g/dL (33.0-37.0) 09/01/16 06:57 RDW 13.4 % (11.5-14.5) 09/01/16 06:57 Plt Count 164 K/uL (130-400) 09/01/16 06:57 MPV 8.6 fL (7.2-11.7) 09/01/16 06:57 Neut % (Auto) 59.0 % (50.0-75.0) 09/01/16 06:57 Lymph % (Auto) 25.8 % (20.0-40.0) 09/01/16 06:57 Emmet % (Auto) 10.5 % (0.0-10.0) H 09/01/16 06:57 Eos % (Auto) 4.1 % (0.0-4.0) H 09/01/16 06:57 Baso % (Auto) 0.6 % (0.0-2.0) 09/01/16 06:57 Neut # 3.2 K/uL (1.8-7.0) 09/01/16 06:57 Lymph # 1.4 K/uL (1.0-4.3) 09/01/16 06:57 Emmet # 0.6 K/uL (0.0-0.8) 09/01/16 06:57 Eos # 0.2 K/uL (0.0-0.7) 09/01/16 06:57 Baso # 0.0 K/uL (0.0-0.2) 09/01/16 06:57 Retic Count 1.2 % (0.5-1.5) 08/30/16 03:28 PT 13.2 SECONDS (9.7-12.2) H 08/30/16 03:28 INR 1.2 08/30/16 03:28 Sodium 136 mmol/L (132-148) 09/01/16 06:57 Potassium 3.9 mmol/L (3.6-5.2) 09/01/16 06:57 Chloride 95 mmol/L (98-107) L 09/01/16 06:57 Carbon Dioxide 26 mmol/L (22-30) 09/01/16 06:57 Anion Gap 19 (10-20) 09/01/16 06:57 BUN 45 mg/dL (9-20) H 09/01/16 06:57 Creatinine 2.0 MG/DL (0.8-1.5) H 09/01/16 06:57 Est GFR ( Amer) 38 09/01/16 06:57 Est GFR (Non-Af Amer) 32 09/01/16 06:57 Random Glucose 109 mg/dL (75-110) 09/01/16 06:57 Hemoglobin A1c 5.3 % (4.2-6.5) 08/30/16 03:28 Calcium 8.8 mg/dl (8.6-10.4) 09/01/16 06:57 Phosphorus 4.8 mg/dL (2.5-4.5) H 09/01/16 06:57 Magnesium 1.6 mg/dL (1.6-2.3) 09/01/16 06:57 Iron 45 ug/dL (49-181) L 08/30/16 03:28 TIBC 268 ug/dL (250-450) 08/30/16 03:28 % Saturation 17 (20-55) L 08/30/16 03:28 Ferritin 224.0 ng/mL 08/30/16 03:28 Total Bilirubin 0.7 mg/dL (0.2-1.3) 09/01/16 06:57 AST 24 U/L (17-59) 09/01/16 06:57 ALT 19 U/L (21-72) L 09/01/16 06:57 Alkaline Phosphatase 43 U/L (38-126) 09/01/16 06:57 Total Creatine Kinase 61 U/L (55-170) 08/30/16 03:28 CK-MB (Mass) 1.87 ng/mL (0.0-3.38) 08/30/16 03:28 Troponin I 0.0720 ng/mL (0.00-0.120) 08/29/16 15:50 Troponin I, Quant 0.0990 ng/mL (0.00-0.120) 08/30/16 03:28 NT-Pro-B Natriuret Pep 5300 pg/mL (0-900) H 08/29/16 15:50 Total Protein 6.8 g/dL (6.3-8.3) 09/01/16 06:57 Albumin 3.8 g/dL (3.5-5.0) 09/01/16 06:57 Globulin 2.9 gm/dL (2.2-3.9) 09/01/16 06:57 Albumin/Globulin Ratio 1.3 (1.0-2.1) 09/01/16 06:57 Triglycerides 88 mg/dL (0-149) D 08/30/16 03:28 Cholesterol 153 mg/dL (0-199) 08/30/16 03:28 LDL Cholesterol Direct 103 mg/dL (0-129) 08/30/16 03:28 HDL Cholesterol 34 mg/dL (30-70) 08/30/16 03:28 Vitamin B12 352 pg/mL (239-931) 08/30/16 03:28 Folate 17.5 ng/mL 08/30/16 03:28 TSH 3rd Generation 1.88 mIU/L (0.46-4.68) 08/30/16 03:28 Urine Color Straw (YELLOW) 08/31/16 23:01 Urine Clarity Clear (Clear) 08/31/16 23:01 Urine pH 5.0 (5.0-8.0) 08/31/16 23:01 Ur Specific [place] 1.006 (1.003-1.030) 08/31/16 23:01 Urine Protein Negative mg/dL (NEGATIVE) 08/31/16 23:01 Urine Glucose (UA) Normal mg/dL (Normal) 08/31/16 23:01 Urine Ketones Negative mg/dL (NEGATIVE) 08/31/16 23:01 Urine Blood 1+ (NEGATIVE) H 08/31/16 23:01 Urine Nitrate Negative (NEGATIVE) 08/31/16 23:01 Urine Bilirubin Negative (NEGATIVE) 08/31/16 23:01 Urine Urobilinogen Normal mg/dL (0.2-1.0) 08/31/16 23:01 Ur Leukocyte Esterase Neg Wesly/uL (Negative) 08/31/16 23:01 Urine WBC (Auto) < 1 /hpf (0-5) 08/31/16 23:01 Urine RBC (Auto) 2 /hpf (0-3) 08/31/16 23:01 Urine Bacteria Rare (<OCC) 08/31/16 23:01 Ur Random Creatinine 33.8 mg/dL 08/31/16 23:01 Ur Random Sodium 77 mmol/L 08/31/16 23:01 Ur Random Urea Nitrogn 172 mg/dL 08/31/16 23:00 Stool Occult Blood Negative (NEGATIVE) 08/31/16 23:01 Digoxin < 0.4 ng/mL (0.8-2.0) L 08/29/16 15:50 - Hospital Course Hospital Course: On admission: 85 year old male with past medical history of mitral valve prolapse with valve replacement in 2008 with bioprsthetic valve, CAD s/p 1 stent, PUD, COPD, a fib not on anticoagulation, AAA with stent, CHF presents for worsening shortness of breath x 1.5 days. Patient states that he has had shortness of breath for many years but recently it has worsened. He is normally able to walk about 1 block before he gets short of breath. Since yesterday morning, pt states that he gets short of breath from just walking around his house. Patient denies having any CP, or LE edema. Patient also c/o worsening epigastric pain. Due to this epigastric pain, patient stopped taking all of his medications except for Ranitidine. Patient was seen by fourth hand, Dr. Saha in office today and was then sent to ED. At this time, patient denies having any SOB, CP, N/V/D/C. Patient does complain of epigastric pain. Patient is unsure when last echo, EGD or colonoscopy were done. 12 point ROS are negative except for the above mentioned. Hospital course: Pt admitted on 08/29/16 to tele floor for shortness of breath. Cause of SOB believed to be secondary to COPD exacerbation. ProBNP on admission 5200. YOSEPH negative x 3. CXR showing cardiomegaly, and mild pulmonary venous congestion. Dr. Arteaga consulted for pulmonology, and Dr. Saha consulted for cardiology. Pt started on O2 and Lasix IV, as well as inhaled steroids. Pt in Afib on presentation, albeit rate controlled. Started on ASA and metoprolol, bt pt refused blood thinner - due to bleeding worsened by plavix from diverticular disease years ago. Pt verbalized understanding of higher risk of stroke without anticoagulation. Pt complaining of abdominal pain, has hx of PUD, so Dr. Pichardo consulted. He recommended continuing PPI and pt to follow up on discharge in the office. ECHO showed Mild to moderate LV systolic dysfunction. EF 38%. Dilated LV and LA. Trace AR. Moderate TR. normally functioning bioprosthetic mitral valve. Pt was sent for MUGA scan to verify EF, result 46%. Over course pt SOB improved he was able to walk farther and tolerate lying flat more. His creatinine increased from baseline of 1.2 on admission, to 2.0. Lisinopril and Lasix held. Pt advised not to take these medication until cleared by fish conservationist at appt this week. Pt stable for discharge on 09/[address] Steele. He was given script for PFT, and told to follow with GI specialist. - Date & Time of H&P Date of H&P: 08/29/16 Time of H&P: 17:46 Discharge Exam - Head Exam Head Exam: ATRAUMATIC, NORMAL INSPECTION - Eye Exam Eye Exam: EOMI, PERRL Pupil Exam: NORMAL ACCOMODATION - ENT Exam ENT Exam: Mucous Membranes Moist - Respiratory Exam Respiratory Exam: Clear to PA & Lateral, NORMAL BREATHING PATTERN. absent: Accessory Muscle Use - Cardiovascular Exam Cardiovascular Exam: Irregular Rhythm, +S1, +S2 - GI/Abdominal Exam GI & Abdominal Exam: Normal Bowel Sounds. absent: Distended - Extremities Exam Extremities exam: normal capillary refill, pedal pulses present - Neurological Exam Neurological exam: Alert, Oriented x3 - Skin Skin Exam: Dry, Normal Color, Warm Discharge Plan - Follow Up Plan Condition: STABLE Disposition: HOME/ ROUTINE Instructions: Metoprolol (By mouth), Aspirin (By mouth), Rosuvastatin (By mouth ), Heart Failure (DC), Dyspnea (GEN), Epigastric Pain (GEN) Additional Instructions: Pt stable for discharge per Dr. Steele. Changes have been made to his home medication regimen. He should NO LONGER TAKE Lasix OR Lisinopril until told he may restart by his Forward Air Controller/Air Officer. He will be discharged with the medications below. It was expressed to the patient that he must follow up with his Forward Air Controller/Air Officer, Dr. [facility], this week. Further more, recommends follow up with his surveyor hydrographic regarding in office for abdominal pain workup. Dr Arteaga, pulmonology, reccommends PFT as outpatient, and to follow up with assistant counsel. These instructions were communicated to nephew at bedside who verbalized his understanding, and repeated the above instructions back. If symptoms return pt is to immediately return to the emergency department. Instructions given to the pt in Taj[place], who verbalized understanding. Medications: ASA 81mg Daily Advair 250/50 1 puff Q12H Metoprolol 25 mg twice daily Crestor 10mg HS Again He should NO LONGER TAKE Lasix OR Lisinopril until told he may restart by his Forward Air Controller/Air Officer. Referrals: Sandip Arteaga MD [Staff Provider] - Ministerio Berrios MD [Staff Provider] - Neil Bishop MD [Staff Provider] - <Sorin Steele P - Last Filed: 09/02/16 21:04> Provider - Provider Date of Admission: 08/31/16 15:49 Attending physician: Jhony Gregory MD Hospital Course - Lab Results Lab Results: Most Recent Lab Values WBC 5.4 K/uL (4.8-10.8) 09/01/16 06:57 RBC 3.23 Mil/uL (4.40-5.90) L 09/01/16 06:57 Hgb 10.2 g/dL (12.0-18.0) L 09/01/16 06:57 Hct 30.0 % (35.0-51.0) L 09/01/16 06:57 MCV 93.0 fL (80.0-94.0) 09/01/16 06:57 MCH 31.7 pg (27.0-31.0) H 09/01/16 06:57 MCHC 34.1 g/dL (33.0-37.0) 09/01/16 06:57 RDW 13.4 % (11.5-14.5) 09/01/16 06:57 Plt Count 164 K/uL (130-400) 09/01/16 06:57 MPV 8.6 fL (7.2-11.7) 09/01/16 06:57 Neut % (Auto) 59.0 % (50.0-75.0) 09/01/16 06:57 Lymph % (Auto) 25.8 % (20.0-40.0) 09/01/16 06:57 Emmet % (Auto) 10.5 % (0.0-10.0) H 09/01/16 06:57 Eos % (Auto) 4.1 % (0.0-4.0) H 09/01/16 06:57 Baso % (Auto) 0.6 % (0.0-2.0) 09/01/16 06:57 Neut # 3.2 K/uL (1.8-7.0) 09/01/16 06:57 Lymph # 1.4 K/uL (1.0-4.3) 09/01/16 06:57 Emmet # 0.6 K/uL (0.0-0.8) 09/01/16 06:57 Eos # 0.2 K/uL (0.0-0.7) 09/01/16 06:57 Baso # 0.0 K/uL (0.0-0.2) 09/01/16 06:57 Retic Count 1.2 % (0.5-1.5) 08/30/16 03:28 PT 13.2 SECONDS (9.7-12.2) H 08/30/16 03:28 INR 1.2 08/30/16 03:28 Sodium 136 mmol/L (132-148) 09/01/16 06:57 Potassium 3.9 mmol/L (3.6-5.2) 09/01/16 06:57 Chloride 95 mmol/L (98-107) L 09/01/16 06:57 Carbon Dioxide 26 mmol/L (22-30) 09/01/16 06:57 Anion Gap 19 (10-20) 09/01/16 06:57 BUN 45 mg/dL (9-20) H 09/01/16 06:57 Creatinine 2.0 MG/DL (0.8-1.5) H 09/01/16 06:57 Est GFR ( Amer) 38 09/01/16 06:57 Est GFR (Non-Af Amer) 32 09/01/16 06:57 Random Glucose 109 mg/dL (75-110) 09/01/16 06:57 Hemoglobin A1c 5.3 % (4.2-6.5) 08/30/16 03:28 Calcium 8.8 mg/dl (8.6-10.4) 09/01/16 06:57 Phosphorus 4.8 mg/dL (2.5-4.5) H 09/01/16 06:57 Magnesium 1.6 mg/dL (1.6-2.3) 09/01/16 06:57 Iron 45 ug/dL (49-181) L 08/30/16 03:28 TIBC 268 ug/dL (250-450) 08/30/16 03:28 % Saturation 17 (20-55) L 08/30/16 03:28 Ferritin 224.0 ng/mL 08/30/16 03:28 Total Bilirubin 0.7 mg/dL (0.2-1.3) 09/01/16 06:57 AST 24 U/L (17-59) 09/01/16 06:57 ALT 19 U/L (21-72) L 09/01/16 06:57 Alkaline Phosphatase 43 U/L (38-126) 09/01/16 06:57 Total Creatine Kinase 61 U/L (55-170) 08/30/16 03:28 CK-MB (Mass) 1.87 ng/mL (0.0-3.38) 08/30/16 03:28 Troponin I 0.0720 ng/mL (0.00-0.120) 08/29/16 15:50 Troponin I, Quant 0.0990 ng/mL (0.00-0.120) 08/30/16 03:28 NT-Pro-B Natriuret Pep 5300 pg/mL (0-900) H 08/29/16 15:50 Total Protein 6.8 g/dL (6.3-8.3) 09/01/16 06:57 Albumin 3.8 g/dL (3.5-5.0) 09/01/16 06:57 Globulin 2.9 gm/dL (2.2-3.9) 09/01/16 06:57 Albumin/Globulin Ratio 1.3 (1.0-2.1) 09/01/16 06:57 Triglycerides 88 mg/dL (0-149) D 08/30/16 03:28 Cholesterol 153 mg/dL (0-199) 08/30/16 03:28 LDL Cholesterol Direct 103 mg/dL (0-129) 08/30/16 03:28 HDL Cholesterol 34 mg/dL (30-70) 08/30/16 03:28 Vitamin B12 352 pg/mL (239-931) 08/30/16 03:28 Folate 17.5 ng/mL 08/30/16 03:28 TSH 3rd Generation 1.88 mIU/L (0.46-4.68) 08/30/16 03:28 Urine Color Straw (YELLOW) 08/31/16 23:01 Urine Clarity Clear (Clear) 08/31/16 23:01 Urine pH 5.0 (5.0-8.0) 08/31/16 23:01 Ur Specific [place] 1.006 (1.003-1.030) 08/31/16 23:01 Urine Protein Negative mg/dL (NEGATIVE) 08/31/16 23:01 Urine Glucose (UA) Normal mg/dL (Normal) 08/31/16 23:01 Urine Ketones Negative mg/dL (NEGATIVE) 08/31/16 23:01 Urine Blood 1+ (NEGATIVE) H 08/31/16 23:01 Urine Nitrate Negative (NEGATIVE) 08/31/16 23: Urine Bilirubin Negative (NEGATIVE) 08/31/16 23: Urine Urobilinogen Normal mg/dL (0.2-1.0) 08/31/16 23:01 Ur Leukocyte Esterase Neg Wesly/uL (Negative) 08/31/16 23: Urine WBC (Auto) < 1 /hpf (0-5) 08/31/16 23: Urine RBC (Auto) 2 /hpf (0-3) 08/31/16 23: Urine Bacteria Rare (<OCC) 08/31/16 23: Ur Random Creatinine 33.8 mg/dL 08/31/16 23: Ur Random Sodium 77 mmol/L 08/31/16 23: Ur Random Urea Nitrogn 172 mg/dL 08/31/16 23:00 Stool Occult Blood Negative (NEGATIVE) 08/31/16 23: Digoxin < 0.4 ng/mL (0.8-2.0) L 08/29/16 15:50 Attending/Attestation - Attestation I have personally seen and examined this patient.: Yes I have fully participated in the care of the patient.: Yes I have reviewed all pertinent clinical information, including history, physical exam and plan: Yes Notes (Text): Patient not sob at rest mentioned, improved since hospitalization, currently doesn't have leg edema, denied orthopenea, creatinine was 2 form 1.9, patient didn't wanted to leave, agreed to f/u out patient in renal clinic for f/u on the renal function, at the time of discharge instructions give as above, lasix was held till f/u in the clinic.
[2016-09-01 13:43] VITALS: PULSE 72
--- NOTE | 2016-09-01 22:44 | PCM.HF ---
Heart Failure Core Measure - Heart Failure Ejection Fraction: 40 % or Greater NAYANA Inhibitor Prescribed: No Contraindication/Reason for not providing: holding NAYANA, (nephrotoxic) - rising Cr Beta-Stiven Prescribed: Metoprolol Succinate AnticoagulationTherapy for Atrial Fibrillation/Atrialflutter: No Contraindication/Reason for not providing: nephrotoxic
== END 2016-09-01 13:50 | disposition home or self-care (01) | DRG 291 ==
LOC: C.ER 14:17 → C.9E 17:16 → C.6T 18:33 → OBSVTOIN 08-31 15:49
PROVIDERS: ADMIT Internal Medicine; ATTEND Internal Medicine
DX: I13.0 Hypertensive heart and chronic kidney disease with heart failure and stage 1 through stage 4 chronic kidney disease, or unspecified chronic kidney disease (principal); I50.23 Acute on chronic systolic (congestive) heart failure; N17.9 Acute kidney failure, unspecified; E86.0 Dehydration; J43.9 Emphysema, unspecified; D64.9 Anemia, unspecified; I48.91 Unspecified atrial fibrillation; I25.10 Atherosclerotic heart disease of native coronary artery without angina pectoris; N18.3 Chronic kidney disease, stage 3 (moderate); K21.9 Gastro-esophageal reflux disease without esophagitis; M19.90 Unspecified osteoarthritis, unspecified site; Z96.1 Presence of intraocular lens; Z98.41 Cataract extraction status, right eye; Z87.891 Personal history of nicotine dependence; Z98.42 Cataract extraction status, left eye; Z95.4 Presence of other heart-valve replacement; Z90.49 Acquired absence of other specified parts of digestive tract; Z87.442 Personal history of urinary calculi; Z95.1 Presence of aortocoronary bypass graft

== ENCOUNTER 2017-03-01 09:01 | Inpatient (IN) | payer MEDICARE ==
[2017-03-01 09:02] VITALS: BMI 28.8
--- NOTE | 2017-03-01 09:17 | C.PDOC ---
History Of Present Illness 86-year-old male, PMHx includes Mitral Valve replacement, presents to the emergency department with complaints of left-sided abdominal wall pain that has been ongoing for weeks. Patient states pain is localized, intermittent in nature and worsens at night. Patient is able to do normal activity without difficulty.Denies chest pain, dizziness, palpitations, or any other associated symptoms. No other complaints at this time. Of note patient is non compliant with medication x6 months. 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 Permit Agent Dr Saha ANEURYSM STENT [address] MONROE Time Seen by Provider: 03/01/17 09:15 Chief Complaint (Nursing): Back Pain History Per: Patient History/Exam Limitations: no limitations Onset/Duration Of Symptoms: Days Current Symptoms Are (Timing): Still Present Past Medical History Reviewed: Historical Data, Nursing Documentation, Vital Signs Vital Signs: Last Vital Signs Temp 97.8 F 03/01/17 15:02 Pulse 68 03/01/17 15:02 Resp 18 03/01/17 15:02 BP 138/74 03/01/17 15:02 Pulse Ox 95 03/01/17 15:02 - Medical History PMH: Anemia, Arthritis, CAD, Cardia Arrhythmia (A FIB), CHF, Emphysema, Gall Bladder Disease (CHOLECYSTECTOMY), HTN, Kidney Stones, Chronic Kidney Disease ( RENAL INSUFFICIENCY) Surgical History: CABG, Cholecystectomy, Coronary Stent, Endoscopy - [facility] CORONAR ARTERIOGR-2 CATH (12/07/13) LEFT HEART CARDIAC CATH (12/07/13) LT HEART ANGIOCARDIOGRAM (12/07/13) Family History: States: No Known Family Hx - Social History Hx Tobacco Use: No Hx Alcohol Use: No Hx Substance Use: No - Immunization History Hx Tetanus Toxoid Vaccination: No Hx Influenza Vaccination: Yes Review Of Systems Except As Marked, All Systems Reviewed And Found Negative. Constitutional: Negative for: Fever Cardiovascular: Negative for: Chest Pain, Palpitations Gastrointestinal: Positive for: Abdominal Pain. Negative for: Nausea, Vomiting Musculoskeletal: Negative for: Back Pain Neurological: Negative for: Weakness, Numbness, Headache, Dizziness Physical Exam - Physical Exam Appears: Non-toxic, No Acute Distress Skin: Warm, Dry, No Rash Head: Atraumatic, Normacephalic Eye(s): bilateral: Normal Inspection, PERRL Nose: Normal Oral Mucosa: Moist Lips: Normal Appearing Neck: Normal ROM Chest: Symmetrical Cardiovascular: Rhythm Regular, No Murmur Respiratory: Normal Breath Sounds, No Accessory Muscle Use Gastrointestinal/Abdominal: Soft, No Tenderness Extremity: Normal ROM Neurological/Psych: Oriented x3, Normal Speech, Other (No focal deficit) ED Course And Treatment - Laboratory Results Result Diagrams: 03/01/17 10:34 03/01/17 10:34 ECG: Interpreted By Me, Viewed By Me ECG Rhythm: Atrial Fibrillation ECG Interpretation: No Acute Changes Rate From EC Progress - Re-Evaluation Re-evaluation Note: 03/01/17 13:24 D/W RADIOLOGIST: REFLUX CONTRAST L COMMON ILIAC LIMB INTO ANEURYSM. 03/01/17 13:32 APPEARS COMFORTABLE NAD. PENDING CALLBACK DR RAMSEY 03/01/17 14:48 EXAM UNCH PRIOR. PENDING RESPONSE DR RAMSEY 03/01/17 15:28 D/W SURG RESIDENT WILL EVAL IN ER 03/01/17 16:01 S/P EVAL DR RAMSEY, ADVISES ADMISSION TO MEDICINE. WILL CONSULT 03/01/17 16:02 D/W DR MORENO MED [facility]IVE PICKER WILL ADMIT - Data Reviewed Data Reviewed: Lab, Diagnostic imaging, EKG, Old records - Critical Care Citical Care: Excluding Proc Time Critical Care Time: 90 minutes - Continuity of Care Discussed patient case with:: Patient, On-call PMD-pt unassigned Discussed pt. case with [facility] consultant/specialty: Vascular Surgery Disposition Counseled Patient/Family Regarding: Studies Performed, Diagnosis - Disposition Disposition: HOSPITALIZED Disposition Time: 16:03 Condition: STABLE Forms: [facility] (Khmer) - POA Present On Arrival: None - Clinical Impression Clinical Impression: Abdominal pain, Endoleak post endovascular aneurysm repair - Scribe Statement The provider has reviewed the documentation as recorded by the Scribe (Saurabh Martin) All medical record entries made by the Scribe were at my direction and personally dictated by me. I have reviewed the chart and agree that the record accurately reflects my personal performance of the history, physical exam, medical decision making, and the department course for this patient. I have also personally directed, reviewed, and agree with the discharge instructions and disposition. Decision To Admit - Pt Status Changed To: Hospital Disposition Of: Inpatient - Admit Certification Admit to Inpatient:: After my assessment, the patient will require hospitalization for at least two midnights. This is because of the severity of symptoms shown, intensity of services needed, and/or the medical risk in this patient being treated as an outpatient. - InPatient: Physician Admission Certification:: SEE NOTE - . Bed Request Type: Regular Admitting Physician: Marshall Moreno Patient Diagnosis: Abdominal pain, Endoleak post endovascular aneurysm repair
[2017-03-01] MEDS ORDERED: Iohexol 240 (50 ml) PO STA (10:17)
[2017-03-01] MEDS ORDERED: Iohexol 240 (50 ml) ONE (10:40)
[2017-03-01 10:41] LABS: BASO % 0.4 % (0.0-2.0); EOS # 0.1 K/uL (0.0-0.7); EOS % 2.3 % (0.0-4.0); HEMOGLOBIN 10.2 g/dL (12.0-18.0); LYMPH # 1.8 K/uL (1.0-4.3); LYMPH % 30.3 % (20.0-40.0); MEAN CELL VOLUME 97.1 fL (80.0-94.0); MEAN CORPUSCULAR HEMOGLOBIN 32.5 pg (27.0-31.0); MEAN CORPUSCULAR HGB CONC 33.5 g/dL (33.0-37.0); MEAN PLATELET VOLUME 8.5 fL (7.2-11.7); MONO # 0.6 K/uL (0.0-0.8); MONO % 10.6 % (0.0-10.0); NEUT # 3.4 K/uL (1.8-7.0); NEUT % 56.4 % (50.0-75.0); RBC 3.13 Mil/uL (4.40-5.90); RED CELL DISTRIBUTION WIDTH 13.9 % (11.5-14.5); WHITE BLOOD COUNT 6.1 K/uL (4.8-10.8)
[2017-03-01 10:53] LABS: PROTHROMBIN TIME 11.9 SECONDS (9.7-12.2)
[2017-03-01 11:17] LABS: ALB/GLOB RATIO 1.2 (1.0-2.1); ALBUMIN 4.1 g/dL (3.5-5.0)
[2017-03-01 11:19] LABS: SQUAMOUS EPITHIAL < 1 /hpf (0-5); URINE BILIRUBIN NEGATIVE (NEGATIVE); URINE BLOOD 2+ (NEGATIVE); URINE CLARITY Clear (Clear); URINE COLOR Yellow (YELLOW); URINE GLUCOSE (UA) NORMAL (Normal); URINE LEUKOCYTE ESTERASE NEG Leu/uL (Negative); URINE NITRATE NEGATIVE (NEGATIVE); URINE PROTEIN 2+ mg/dL (NEGATIVE); URINE UROBILINOGEN NORMAL mg/dL (0.2-1.0)
[2017-03-01 11:29] LABS: TROPONIN I 0.097 ng/mL (0.00-0.120)
--- NOTE | 2017-03-01 11:37 | RAD ---
HISTORY: Abdominal pain. COMPARISON: 08/29/2016 TECHNIQUE: Chest PA and lateral FINDINGS: LUNGS: No active pulmonary disease. PLEURA: No significant pleural effusion identified. No pneumothorax apparent. CARDIOVASCULAR: No radiographic findings to suggest acute or significant cardiovascular disease. Incidental Finding(s): Postoperative changes related to sternotomy. OSSEOUS STRUCTURES: No significant abnormalities. VISUALIZED UPPER ABDOMEN: Normal. OTHER FINDINGS: None. IMPRESSION: No active disease. No significant interval change compared to the prior examination(s). Concordant results with the preliminary interpretation rendered by the emergency department physician procedure.
[2017-03-01] MEDS ORDERED: Iodixanol 320 MG/ML 100 ML BOTTLE IV ONE (12:17)
--- NOTE | 2017-03-01 13:27 | CT ---
PROCEDURE: CT Abdomen and Pelvis with contrast HISTORY: L SIDED abd pain COMPARISON: Renal ultrasound examination 08/31/2016. TECHNIQUE: Following oral and intravenous contrast administration, a CT examination of the abdomen and pelvis performed from the domes of the diaphragms to the symphysis pubis with reformatted datasets provided not only axial but also sagittal and coronal series. Contrast dose: Visipaque 320, 75 cc Radiation dose: Total exam DLP = 420.96 mGy-cm. This CT exam was performed using one or more of the following dose reduction techniques: Automated exposure control, adjustment of the mA and/or kV according to patient size, and/or use of iterative reconstruction technique. FINDINGS: LOWER THORAX: Cardiomegaly is appreciated with extensive coronary artery atherosclerosis identified. Loculated pleural effusion is identified at the left costophrenic sulcus laterally with associated trace pleural thickening. No similar right-sided findings. . LIVER: Liver appears upper limits normal size without focal mass evident. Trace intrahepatic biliary duct dilatation is appreciated with the common bile duct dilated to 1.3 cm proximally an 8 mm distally without radiodense choledocholithiasis. This is likely cholecystectomy related however clinical correlation is recommended nevertheless. GALLBLADDER AND BILE DUCTS: Prior cholecystectomy suggested. PANCREAS: Moderately fat replaced pancreas is appreciate without focal mass related. SPLEEN: Unremarkable. ADRENALS: Unremarkable. No mass. KIDNEYS AND URETERS: Unremarkable. No hydronephrosis. No solid mass. VASCULATURE: Patient status post aortic iliac stent graft therapy for a large infrarenal abdominal aortic aortic aneurysm. At any contrast material is identified refluxing at the junction of the left common iliac limb of the endograft retrograde into the aneurysm partially opacifying at. No extravasated iodinated contrast material is identified and there is scattered enhancement into the left iliac arterial system as well as the proximal visualize left femoral system as well. The right common iliac artery is dilated to 1.6 cm with the left common iliac artery dilated further 2.1 cm. Left common femoral artery is dilated to 1.3 cm the right common femoral artery normal in caliber and 1.1 cm. BOWEL: Mild to moderate rectal fecal impaction is identified without bowel obstruction appreciated. There is no mesenteric edema ascites or free intrarenal gas identified. Oral contrast a process small-bowel loops are unremarkable. APPENDIX: Appendix not clearly identified. No CT pattern appendicitis at this time. PERITONEUM: Unremarkable. No free fluid. No free air. Small bilateral developing inguinal hernia identified containing only fat at this time. LYMPH NODES: Unremarkable. No enlarged lymph nodes. BLADDER: Unremarkable. REPRODUCTIVE: Enlarged prostate gland noted. BONES: No acute fracture. OTHER FINDINGS: None. IMPRESSION: Patient status post aortic iliac stent graft repair of infrarenal abdominal aortic aneurysm with retrograde enhancement from the left common iliac limited into the aneurysm re- opacifying it. No extravasation is identified at this time. Vascular surgical consultation is recommended. Next item other additional findings as per above. Discussed with Dr. Chamorro 03/01/17, 1:24 p.m. with written down read back verification.
[2017-03-01] MEDS ORDERED: Aluminum Hydroxide/Magnesium Hydroxide Susp (30 mL) PO STA (13:46)
[2017-03-01] MEDS ORDERED: Aluminum Hydroxide/Magnesium Hydroxide Susp (30 mL) ONE (13:50)
--- NOTE | 2017-03-01 17:01 | CP.PCM.CON ---
History of Present Illness - History of Present Illness History of Present Illness: Vascular Surgery Note for Dr. Pennington Reason for Consult: Type I endoleak 86 M with PMH of AAA repair, HTN, and CHF who presents to the hospital with complaint of left lateral abdominal pain. The pain started about 1 month ago and gradually worsened until now. He states he has the worst pain at nighttime, and it usually goes away when he stands up. Pt. describes the pain as constant aching pain, and rates it as 5/10. Pt. denies radiation of pain. Currently, he just complains of the left lateral abdominal pain, numbness and tingling of hands bilaterally, and slight SOB. CT reads retrograde enhancement from L iliac artery. 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 PMHx: AAA, HTN, GERD, depression, CHF Allergies: Avelox Surgery: cholecystectomy (2012), colectomy, aortic stent (2009), mitral valve replacement (2006) Hospitalizations: for above surgeries FHx: brother, sister-stroke, [place] Medications: stopped taking months ago (Crestor 5mg, Ranitidine 150mg, Fluoxetine 20mg, Vit. D3 20,000) Social Hx: past smoker (quit 20 yrs. ago; 2 packs/day); denies alcohol and drug use Review of Systems - Review of Systems Review of Systems: see HPI - Constitutional Constitutional: As Per HPI - EENT Eyes: As Per HPI. absent: Blurred Vision Ears: As Per HPI Nose/Mouth/Throat: Nasal Discharge - Cardiovascular Cardiovascular: absent: Chest Pain - Respiratory Respiratory: Dyspnea - Gastrointestinal Gastrointestinal: Abdominal Pain Additional comments: Left lateral abdominal pain - Genitourinary Genitourinary: absent: Dysuria, Urinary Frequency - Musculoskeletal Musculoskeletal: Arthralgias - Psychiatric Psychiatric: Depression Past Patient History - Infectious Disease Hx of Infectious Diseases: None - Past Medical History & Family History Past Medical History?: Yes - Past Social History Smoking Status: Former Smoker - CARDIAC Hx Cardia Arrhythmia: Yes (A FIB) Hx Congestive Heart Failure: Yes Hx Hypertension: Yes - PULMONARY Hx Emphysema: Yes - NEUROLOGICAL Hx Neurological Disorder: Yes Hx Dizziness: Yes - HEENT Hx HEENT Problems: Yes Hx Cataracts: Yes (BILAT IOL) Other/Comment: LEFTB EYELID SLIGHT EDEMA SX 2 [place]EEK[place]O - RENAL Hx Chronic Kidney Disease: Yes (RENAL INSUFFICIENCY) Hx Kidney Stones: Yes - ENDOCRINE/METABOLIC Hx Endocrine Disorders: No - HEMATOLOGICAL/ONCOLOGICAL Hx Anemia: Yes - INTEGUMENTARY Hx Dermatological Problems: No - MUSCULOSKELETAL/RHEUMATOLOGICAL Hx Arthritis: Yes - GASTROINTESTINAL Hx Gall Bladder Disease: Yes (CHOLECYSTECTOMY) - GENITOURINARY/GYNECOLOGICAL Hx Genitourinary Disorders: Yes Hx Prostate Problems: Yes Other/Comment: colon removed - PSYCHIATRIC Hx Substance Use: No - SURGICAL HISTORY Hx Cholecystectomy: Yes Hx Coronary Artery Bypass Graft: Yes Hx Coronary Stent: Yes - ANESTHESIA Hx Anesthesia: Yes Hx Anesthesia Reactions: No Hx Malignant Hyperthermia: No Meds Allergies/Adverse Reactions: Allergies Allergy/AdvReac Type Severity Reaction Status Date / Time moxifloxacin [From Avelox] Allergy Intermediate Verified 03/01/17 09:33 - Medications Medications: Current Medications Lactated Ringer's (Lactated Ringer's) 1,000 mls @ 100 mls/hr IV .Q10H JAIDA Physical Exam - Constitutional Appears: Well - Head Exam Head Exam: ATRAUMATIC, NORMAL INSPECTION, NORMOCEPHALIC - Eye Exam Eye Exam: EOMI, Normal appearance, PERRL Pupil Exam: NORMAL ACCOMODATION, PERRL - ENT Exam ENT Exam: Mucous Membranes Moist, Normal Exam - Neck Exam Neck exam: Positive for: Normal Inspection - Respiratory Exam Respiratory Exam: Rales Additional comments: Expiratory rales bilaterally - Cardiovascular Exam Cardiovascular Exam: REGULAR RHYTHM, +S1, +S2 - GI/Abdominal Exam GI & Abdominal Exam: Normal Bowel Sounds, Soft, Tenderness Additional comments: Left lateral pain - Extremities Exam Extremities exam: Positive for: normal inspection - Back Exam Back exam: NORMAL INSPECTION - Neurological Exam Neurological exam: Alert, CN II-XII Intact, Oriented x3, Reflexes Normal - Psychiatric Exam Psychiatric exam: Normal Affect - Skin Skin Exam: Normal Color Results - Vital Signs Recent Vital Signs: Last Vital Signs Temp 97.8 F 03/01/17 15:02 Pulse 68 03/01/17 15:02 Resp 18 03/01/17 15:02 BP 138/74 03/01/17 15:02 Pulse Ox 95 03/01/17 15:02 - Labs Result Diagrams: 03/01/17 10:34 03/01/17 10:34 Labs: Laboratory Results - last 24 hr 03/01/17 03/01/17 03/01/17 10:33 10:34 10:34 WBC 6.1 RBC 3.13 L Hgb 10.2 L Hct 30.4 L MCV 97.1 H D MCH 32.5 H MCHC 33.5 RDW 13.9 Plt Count 157 MPV 8.5 Neut % (Auto) 56.4 Lymph % (Auto) 30.3 [place] % (Auto) 10.6 H Eos % (Auto) 2.3 Baso % (Auto) 0.4 Neut # 3.4 Lymph # 1.8 [place] # 0.6 Eos # 0.1 Baso # 0.0 PT 11.9 INR 1.0 APTT 31 Sodium Potassium Chloride Carbon Dioxide Anion Gap BUN Creatinine Est GFR ( Amer) Est GFR (Non-Af Amer) Random Glucose Calcium Total Bilirubin AST ALT Alkaline Phosphatase Troponin I NT-Pro-B Natriuret Pep Total Protein Albumin Globulin Albumin/Globulin Ratio Lipase Urine Color Yellow Urine Clarity Clear Urine pH 5.0 Ur Specific [place] 1.017 Urine Protein 2+ H Urine Glucose (UA) Normal Urine Ketones Negative Urine Blood 2+ H Urine Nitrate Negative Urine Bilirubin Negative Urine Urobilinogen Normal Ur Leukocyte Esterase Neg Urine WBC (Auto) 2 Urine RBC (Auto) 21 H Ur Squamous Epith Cells < 1 03/01/17 10:34 WBC RBC Hgb Hct MCV MCH MCHC RDW Plt Count MPV Neut % (Auto) Lymph % (Auto) [place] % (Auto) Eos % (Auto) Baso % (Auto) Neut # Lymph # [place] # Eos # Baso # PT INR APTT Sodium 136 Potassium 4.9 Chloride 103 Carbon Dioxide 23 Anion Gap 14 BUN 28 H Creatinine 1.5 Est GFR ( Amer) 53 Est GFR (Non-Af Amer) 44 Random Glucose 95 Calcium 9.0 Total Bilirubin 0.4 AST 20 ALT 16 L Alkaline Phosphatase 63 Troponin I 0.0970 NT-Pro-B Natriuret Pep 4520 H Total Protein 7.4 Albumin 4.1 Globulin 3.3 Albumin/Globulin Ratio 1.2 Lipase 59 Urine Color Urine Clarity Urine pH Ur Specific [place] Urine Protein Urine Glucose (UA) Urine Ketones Urine Blood Urine Nitrate Urine Bilirubin Urine Urobilinogen Ur Leukocyte Esterase Urine WBC (Auto) Urine RBC (Auto) Ur Squamous Epith Cells Assessment & Plan - Assessment and Plan (Free Text) Assessment: 86 M with PMH of AAA EVAR repair presents with Type I endoleak Plan: OR scheduled Saturday for graft repair Pain medications PRN Medical management as per primary NPO Past MN on Saturday evening Discussed with Dr. Aditi Cochran PGY1
--- NOTE | 2017-03-01 23:29 | CP.PCM.HP ---
History of Present Illness - History of Present Illness History of Present Illness: CC: Left upper quadrant abdominal pain HPI: 86 M with PMH of AAA repair, HTN,Hyperlipidemia and CHF complaint with diet , medicationa nd follow up who presents to the hospital with complaint of left lateral abdominal pain. The pain started about 1 month ago and gradually worsened until now. He states he has the worst pain at nighttime, and it usually goes away when he stands up. Pt. describes the pain as constant aching pain, and rates it as 5/10. Pt. denies radiation of pain. Currently, he just complains of the left lateral abdominal pain, numbness and tingling of hands bilaterally, and slight SOB. CT reads retrograde enhancement from L iliac artery. 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 PMHx: AAA, HTN, GERD, depression, CHF Allergies: Avelox Surgery: cholecystectomy (2012), colectomy, aortic stent (2009), mitral valve replacement (2006) Hospitalizations: for above surgeries FHx: brother, sister-stroke, [place] Medications: stopped taking months ago (Crestor 5mg, Ranitidine 150mg, Fluoxetine 20mg, Vit. D3 20,000) Social Hx: past smoker (quit 20 yrs. ago; 2 packs/day); denies alcohol and drug use Present on Admission - Present on Admission Any Indicators Present on Admission: Yes Review of Systems - Review of Systems Systems not reviewed;Unavailable: Acuity of Condition - Constitutional Constitutional: Fatigue. absent: As Per HPI, Anorexia, Chills, Daytime Sleepiness, Excessive Sweating, Fever, Frequent Falls, Headache, Increased Appetite, Lethargy, Malaise, Night Sweats, Snoring, Sleep Apnea, Weight Gain, Weight Loss, Weakness, Other - EENT Eyes: absent: As Per HPI, Blind Spots, Blurred Vision, Change in Vision, Decreased Night Vision, Diplopia, Discharge, Dry Eye, Exophthalmos, Floaters, Irritation, Itchy Eyes, Loss of Peripheral Vision, Pain, Photophobia, Requires Corrective Lenses, Sees Flashes, Spots in Vision, Tunnel Vision, Other Visual Disturbances, Loss of Vision, Other Nose/Mouth/Throat: absent: As Per HPI, Epistaxis, Nasal Congestion, Nasal Discharge, Nasal Obstruction, Nasal Trauma, Nose Pain, Post Nasal Drip, Sinus Pain, Sinus Pressure, Bleeding Gums, Change in Voice, Dental Pain, Dry Mouth, Dysphagia, Halitosis, Hoarsness, Lip Swelling, Mouth Lesions, Mouth Pain, Odynophagia, Sore Throat, Throat Swelling, Tongue Swelling, Facial Pain, Neck Pain, Neck Mass, Other - Cardiovascular Cardiovascular: absent: As Per HPI, Acrocyanosis, Chest Pain, Chest Pain at Rest , Chest Pain with Activity, Claudication, Diaphoresis, Dyspnea, Dyspnea on Exertion, Edema, Irregular Heart Rhythm, Pain Radiating to Arm/Neck/Jaw, Leg Edema, Leg Ulcers, Lightheadedness, Orthopnea, Palpitations, Paroxysmal Nocturnal Dyspnea, Pedal Edema, Radiating Pain, Rapid Heart Rate, Slow Heart Rate, Syncope, Other - Gastrointestinal Gastrointestinal: Abdominal Pain - Genitourinary Genitourinary: absent: As Per HPI, Change in Urinary Stream, Difficulty Urinating, Dysuria, Flank Pain, Hematuria, Pyuria, Nocturia, Urinary Incontinence, Urinary Frequency, Urinary Hesitance, Urinary Urgency, Voiding Freq/Small Amts, Freq UTI, Hx Renal/Bladder Calculi, Hx /Renal Surgery, Bladder Distension, Other - Neurological Neurological: absent: As Per HPI, Abnormal Gait, Abnormal Hearing, Abnormal Movements, Abnormal Speech, Behavioral Changes, Burning Sensations, Confusion, Convulsions, Disequilibrium, Dizziness, Numbness, Focal Weakness, Frequent Falls , Headaches, Lack of Coordination, Loss of Vision, Memory Loss, Paresthesias, Radicular Pain, Restless Legs, Sensory Deficit, Syncope, Tingling, Tremor, Vertigo, Weakness, Other Visual Disturbances, Other - Psychiatric Psychiatric: absent: As Per HPI, Abnormal Sleep Pattern, Anhedonia, Anxiety, Auditory Hallucinations, Behavioral Changes, Change in Appetite, Change in Libido, Confusion, Depression, Difficulty Concentrating, Hallucinations, Homicidal Ideation, Hopelessness, Irritability, Memory Loss, Mood Swings, Panic Attacks, Paranoia, Suicidal Ideation, Visual Hallucinations, Tactile Hallucinations, Other Past Patient History - Infectious Disease Hx of Infectious Diseases: None - Past Medical History & Family History Past Medical History?: Yes - Past Social History Smoking Status: Never Smoked - CARDIAC Hx Cardia Arrhythmia: Yes (A FIB) Hx Congestive Heart Failure: Yes Hx Hypertension: Yes - PULMONARY Hx Chronic Obstructive Pulmonary Disease (COPD): Yes Hx Emphysema: Yes - NEUROLOGICAL Hx Neurological Disorder: Yes Hx Dizziness: Yes - HEENT Hx HEENT Problems: Yes Hx Cataracts: Yes (BILAT IOL) Other/Comment: LEFTB EYELID SLIGHT EDEMA SX 2 [place] - RENAL Hx Chronic Kidney Disease: Yes (RENAL INSUFFICIENCY) Hx Kidney Stones: Yes - ENDOCRINE/METABOLIC Hx Endocrine Disorders: No - HEMATOLOGICAL/ONCOLOGICAL Hx Anemia: Yes - INTEGUMENTARY Hx Dermatological Problems: No - MUSCULOSKELETAL/RHEUMATOLOGICAL Hx Arthritis: Yes Hx Falls: No - GASTROINTESTINAL Hx Gall Bladder Disease: Yes (CHOLECYSTECTOMY 3-4yrs ago) Other/Comment: colon removed 2008 - GENITOURINARY/GYNECOLOGICAL Hx Genitourinary Disorders: Yes Hx Prostate Problems: Yes Other/Comment: colon removed - PSYCHIATRIC Hx Substance Use: No - SURGICAL HISTORY Hx Cholecystectomy: Yes Hx Coronary Artery Bypass Graft: Yes Hx Coronary Stent: Yes Hx Valve Replacement: Yes ([facility] 2007) - ANESTHESIA Hx Anesthesia: Yes Hx Anesthesia Reactions: No Hx Malignant Hyperthermia: No Meds Allergies/Adverse Reactions: Allergies Allergy/AdvReac Type Severity Reaction Status Date / Time moxifloxacin [From Avelox] Allergy Intermediate Verified 03/01/17 09:33 Physical Exam - Constitutional Appears: No Acute Distress - Head Exam Head Exam: ATRAUMATIC, NORMAL INSPECTION, NORMOCEPHALIC - Eye Exam Eye Exam: EOMI, Normal appearance, PERRL Pupil Exam: NORMAL ACCOMODATION, PERRL - Cardiovascular Exam Cardiovascular Exam: REGULAR RHYTHM - GI/Abdominal Exam GI & Abdominal Exam: Normal Bowel Sounds, Soft. absent: Tenderness - Back Exam Back exam: NORMAL INSPECTION - Neurological Exam Neurological exam: Alert, CN II-XII Intact, Normal Gait, Oriented x3, Reflexes Normal - Psychiatric Exam Psychiatric exam: Normal Affect, Normal Mood - Skin Skin Exam: Dry, Intact, Normal Color, Warm Additional comments: senile turgor Results - Vital Signs Recent Vital Signs: Last Vital Signs Temp 98 F 03/01/17 18:35 Pulse 80 03/01/17 18:35 Resp 20 03/01/17 18:35 BP 156/78 H 03/01/17 18:35 Pulse Ox 97 03/01/17 18:35 - Labs Result Diagrams: 03/01/17 10:34 03/01/17 10:34 Labs: Laboratory Results - last 24 hr 03/01/17 03/01/17 03/01/17 10:33 10:34 10:34 WBC 6.1 RBC 3.13 L Hgb 10.2 L Hct 30.4 L MCV 97.1 H D MCH 32.5 H MCHC 33.5 RDW 13.9 Plt Count 157 MPV 8.5 Neut % (Auto) 56.4 Lymph % (Auto) 30.3 [place] % (Auto) 10.6 H Eos % (Auto) 2.3 Baso % (Auto) 0.4 Neut # 3.4 Lymph # 1.8 [place] # 0.6 Eos # 0.1 Baso # 0.0 PT 11.9 INR 1.0 APTT 31 Sodium Potassium Chloride Carbon Dioxide Anion Gap BUN Creatinine Est GFR ( Amer) Est GFR (Non-Af Amer) Random Glucose Calcium Total Bilirubin AST ALT Alkaline Phosphatase Troponin I NT-Pro-B Natriuret Pep Total Protein Albumin Globulin Albumin/Globulin Ratio Lipase Urine Color Yellow Urine Clarity Clear Urine pH 5.0 Ur Specific [place] 1.017 Urine Protein 2+ H Urine Glucose (UA) Normal Urine Ketones Negative Urine Blood 2+ H Urine Nitrate Negative Urine Bilirubin Negative Urine Urobilinogen Normal Ur Leukocyte Esterase Neg Urine WBC (Auto) 2 Urine RBC (Auto) 21 H Ur Squamous Epith Cells < 1 03/01/17 10:34 WBC RBC Hgb Hct MCV MCH MCHC RDW Plt Count MPV Neut % (Auto) Lymph % (Auto) [place] % (Auto) Eos % (Auto) Baso % (Auto) Neut # Lymph # [place] # Eos # Baso # PT INR APTT Sodium 136 Potassium 4.9 Chloride 103 Carbon Dioxide 23 Anion Gap 14 BUN 28 H Creatinine 1.5 Est GFR ( Amer) 53 Est GFR (Non-Af Amer) 44 Random Glucose 95 Calcium 9.0 Total Bilirubin 0.4 AST 20 ALT 16 L Alkaline Phosphatase 63 Troponin I 0.0970 NT-Pro-B Natriuret Pep 4520 H Total Protein 7.4 Albumin 4.1 Globulin 3.3 Albumin/Globulin Ratio 1.2 Lipase 59 Urine Color Urine Clarity Urine pH Ur Specific [place] Urine Protein Urine Glucose (UA) Urine Ketones Urine Blood Urine Nitrate Urine Bilirubin Urine Urobilinogen Ur Leukocyte Esterase Urine WBC (Auto) Urine RBC (Auto) Ur Squamous Epith Cells Assessment & Plan (1) HTN (hypertension) Assessment and Plan: B.P control Status: Acute (2) Hyperlipemia Assessment and Plan: statin Status: Acute (3) Abdominal pain Status: Acute (4) Endoleak post endovascular aneurysm repair Assessment and Plan: vascular consult medical management Status: Acute
--- NOTE | 2017-03-02 09:35 | CP.PCM.PN ---
Subjective - Date & Time of Evaluation Date of Evaluation: 03/02/17 Time of Evaluation: 09:33 - Subjective Subjective: Surgery Pt s&e. NAEON. Denies F/C/N/V/D/CP/SOB. Pain controlled. Objective - Vital Signs/Intake and Output Vital Signs (last 24 hours): Temp Pulse Resp BP Pulse Ox 97.4 F L 91 H 20 152/87 H 95 03/02/17 08:39 03/02/17 08:39 03/02/17 08:39 03/02/17 08:39 03/02/17 08:39 Intake and Output: 03/02/17 03/02/17 06:59 18:59 Intake Total 120 Balance 120 - Medications Medications: Current Medications Aspirin (Ecotrin) 81 mg PO DAILY JAIDA Enoxaparin Sodium (Lovenox) 40 mg SC DAILY JAIDA Fluoxetine HCl (Prozac) 20 mg PO DAILY [facility] Gabapentin (Neurontin) 300 mg PO TID [facility] Lactated Ringer's (Lactated Ringer's) 1,000 mls @ 100 mls/hr IV .Q10H JAIDA Lisinopril (Zestril) 10 mg PO DAILY [facility] Metoprolol Tartrate (Lopressor) 25 mg PO BID JAIDA Pantoprazole Sodium (Protonix Ec Tab) 20 mg PO DAILY JAIDA Rosuvastatin Calcium (Crestor) 5 mg PO HS [facility] Last Admin: 03/01/17 21:29 Dose: 5 mg - Labs Labs: 03/01/17 10:34 03/01/17 10:34 PT 11.9 SECONDS (9.7-12.2) 03/01/17 10:34 INR 1.0 03/01/17 10:34 APTT 31 SECONDS (21-34) 03/01/17 10:34 - Constitutional Appears: No Acute Distress - Head Exam Head Exam: ATRAUMATIC, NORMAL INSPECTION, NORMOCEPHALIC - Eye Exam Eye Exam: EOMI, Normal appearance, PERRL Pupil Exam: NORMAL ACCOMODATION, PERRL - ENT Exam ENT Exam: Mucous Membranes Moist, Normal Exam - Neck Exam Neck Exam: Full ROM, Normal Inspection. absent: Lymphadenopathy - Respiratory Exam Respiratory Exam: Clear to Ausculation Bilateral, NORMAL BREATHING PATTERN - Cardiovascular Exam Cardiovascular Exam: REGULAR RHYTHM, +S1, +S2. absent: Murmur - GI/Abdominal Exam GI & Abdominal Exam: Soft, Normal Bowel Sounds. absent: Distended, Tenderness - Extremities Exam Extremities Exam: Full ROM, Normal Capillary Refill, Normal Inspection. absent : Joint Swelling, Pedal Edema - Back Exam Back Exam: NORMAL INSPECTION - Neurological Exam Neurological Exam: Alert, Awake, CN II-XII Intact, Normal Gait, Oriented x3 - Psychiatric Exam Psychiatric exam: Normal Affect, Normal Mood - Skin Skin Exam: Dry, Intact, Normal Color, Warm Assessment and Plan - Assessment and Plan (Free Text) Assessment: Endoleak type 1. -OR mon for graft repair -NPO aftermidnight on Mon -Medical management SHAUNNA Gonzalez
[2017-03-02] MEDS ORDERED: Ophthalmic Irrigation, Soln OU ONE ×2 (09:36→15:00)
[2017-03-02] MEDS: Enoxaparin 40 mg Syringe SC SCH ×2 (10:08→10:12)
[2017-03-02] MEDS: Pantoprazole 20 mg EC Tab PO SCH (10:09)
[2017-03-02] MEDS: Aritificial Tears (15ml) OU PRN (17:19)
--- NOTE | 2017-03-02 23:42 | CARD ---
APPROVED REPORT EKG Measurement Heart [id number] <Conclusion> Atrial fibrillation Nonspecific ST abnormality Abnormal ECG
--- NOTE | 2017-03-02 23:43 | CP.PCM.PN ---
Subjective - Date & Time of Evaluation Date of Evaluation: 03/02/17 Time of Evaluation: 16:40 - Subjective Subjective: Pt seen and evaluated, pt needs pre op clearnnce from cardiology then he is for OR Objective - Vital Signs/Intake and Output Vital Signs (last 24 hours): Temp Pulse Resp BP Pulse Ox 98.6 F 82 20 136/80 96 03/02/17 16:00 03/02/17 16:00 03/02/17 16:00 03/02/17 17:19 03/02/17 16:00 Intake and Output: 03/02/17 03/03/17 18:59 06:59 Intake Total 500 Balance 500 - Medications Medications: Current Medications Artificial Tears (Artificial Tears) 0 ml OU Q6H PRN PRN Reason: DRY EYE Last Admin: 03/02/17 17:19 Dose: 1 drop Aspirin (Ecotrin) 81 mg PO DAILY [facility]S [facility] 234 BEDS AT [facility] Last Admin: 03/02/17 10:08 Dose: 81 mg Enoxaparin Sodium (Lovenox) 40 mg SC DAILY COUNTS INCLUDE 234 BEDS AT THE [facility] Last Admin: 03/02/17 10:12 Dose: Not Given Fluoxetine HCl (Prozac) 20 mg PO DAILY [facility]S INCLUDE 234 BEDS AT THE [facility] Last Admin: 03/02/17 10:09 Dose: 20 mg Gabapentin (Neurontin) 300 mg PO TID [facility]S [facility]CLUDE 234 BEDS AT THE [facility] Last Admin: 03/02/17 17:20 Dose: 300 mg Lactated Ringer's (Lactated Ringer's) 1,000 mls @ 100 mls/hr IV .Q10H COUNTS INCLUDE 234 BEDS AT THE [facility] Lisinopril (Zestril) 10 mg PO DAILY COUNTS INCLUDE 234 BEDS AT THE [facility] Last Admin: 03/02/17 10:08 Dose: 10 mg Metoprolol Tartrate (Lopressor) 25 mg PO BID COUNTS INCLUDE 234 BEDS AT THE [facility] Last Admin: 03/02/17 17:19 Dose: 25 mg Pantoprazole Sodium (Protonix Ec Tab) 20 mg PO DAILY [facility]S INCLUDE 234 BEDS AT THE [facility] Last Admin: 03/02/17 10:09 Dose: 20 mg Pneumococcal Polyvalent Vaccine (Pneumovax 23 Vaccine) 0.5 ml IM .ONCE ONE Stop: 03/04/17 10:01 Rosuvastatin Calcium (Crestor) [address] [facility] Last Admin: 03/02/17 21:15 Dose: 5 mg - Labs Labs: 03/01/17 10:34 03/01/17 10:34 PT 11.9 SECONDS (9.7-12.2) 03/01/17 10:34 INR 1.0 03/01/17 10:34 APTT 31 SECONDS (21-34) 03/01/17 10:34 - Constitutional Appears: No Acute Distress - Head Exam Head Exam: ATRAUMATIC, NORMAL INSPECTION, NORMOCEPHALIC - Eye Exam Eye Exam: EOMI, Normal appearance, PERRL Pupil Exam: NORMAL ACCOMODATION, PERRL - Respiratory Exam Respiratory Exam: Clear to Ausculation Bilateral, NORMAL BREATHING PATTERN - Cardiovascular Exam Cardiovascular Exam: REGULAR RHYTHM, +S1, +S2. absent: Murmur - GI/Abdominal Exam GI & Abdominal Exam: Soft, Normal Bowel Sounds. absent: Tenderness - Back Exam Back Exam: NORMAL INSPECTION - Neurological Exam Neurological Exam: Alert, Awake, CN II-XII Intact, Normal Gait, Oriented x3 Assessment and Plan (1) HTN (hypertension) Status: Acute (2) Hyperlipemia Status: Acute (3) Abdominal pain Status: Acute (4) Endoleak post endovascular aneurysm repair Status: Acute
[2017-03-03] MEDS: Pantoprazole 20 mg EC Tab PO SCH (10:07)
[2017-03-03] MEDS: Enoxaparin 40 mg Syringe SC SCH ×2 (10:08→10:14)
--- NOTE | 2017-03-03 13:23 | CP.PCM.PN ---
Subjective - Date & Time of Evaluation Date of Evaluation: 03/03/17 Time of Evaluation: 13:22 - Subjective Subjective: Vasc Sx: Dr Pennington Pt S&E. Sleeping comfortably. No complaints. Pt scheduled for repair of Type 1 Endoleak tomorrow 03/04/17 Objective - Vital Signs/Intake and Output Vital Signs (last 24 hours): Temp Pulse Resp BP Pulse Ox 97.9 F 65 20 105/67 97 03/03/17 07:54 03/03/17 07:54 03/03/17 07:54 03/03/17 10:07 03/03/17 07:54 Intake and Output: 03/03/17 03/03/17 06:59 18:59 Intake Total 480 Balance 480 - Medications Medications: Current Medications Artificial Tears (Artificial Tears) 0 ml OU Q6H PRN PRN Reason: DRY EYE Last Admin: 03/02/17 17:19 Dose: 1 drop Aspirin (Ecotrin) 81 mg PO DAILY [facility] [place] Last Admin: 03/03/17 10:07 Dose: 81 mg Enoxaparin Sodium (Lovenox) 40 mg SC DAILY [facility] Last Admin: 03/03/17 10:14 Dose: Not Given Fluoxetine HCl (Prozac) 20 mg PO DAILY [facility] Last Admin: 03/03/17 10:07 Dose: 20 mg Gabapentin (Neurontin) 300 mg PO TID [facility] Last Admin: 03/03/17 13:09 Dose: 300 mg Lactated Ringer's (Lactated Ringer's) 1,000 mls @ 100 mls/hr IV .Q10H [facility] [place] Lisinopril (Zestril) 10 mg PO DAILY [facility] [place] Last Admin: 03/03/17 10:07 Dose: 10 mg Metoprolol Tartrate (Lopressor) 25 mg PO BID [facility] [place] Last Admin: 03/03/17 10:07 Dose: 25 mg Pantoprazole Sodium (Protonix Ec Tab) 20 mg PO DAILY [facility] Last Admin: 03/03/17 10:07 Dose: 20 mg Pneumococcal Polyvalent Vaccine (Pneumovax 23 Vaccine) 0.5 ml IM .ONCE ONE Stop: 03/04/17 10:01 Rosuvastatin Calcium (Crestor) 5 mg PO HS [facility] [place] Last Admin: 03/02/17 21:15 Dose: 5 mg - Labs Labs: 03/01/17 10:34 03/01/17 10:34 PT 11.9 SECONDS (9.7-12.2) 03/01/17 10:34 INR 1.0 03/01/17 10:34 APTT 31 SECONDS (21-34) 03/01/17 10:34 - Constitutional Appears: Non-toxic - Respiratory Exam Respiratory Exam: absent: Accessory Muscle Use, Respiratory Distress - Cardiovascular Exam Cardiovascular Exam: Irregular Rhythm - GI/Abdominal Exam GI & Abdominal Exam: Soft. absent: Distended, Tenderness
--- NOTE | 2017-03-03 21:50 | CP.PCM.CON ---
History of Present Illness - History of Present Illness History of Present Illness: Reason for Consult: Pre Op cardiac risk assessment 86 M with PMH of AAA repair, HTN, and CHF who presents to the hospital with complaint of left lateral abdominal pain. The pain started about 1 month ago and gradually worsened until now. He states he has the worst pain at nighttime, and it usually goes away when he stands up. Pt. describes the pain as constant aching pain, and rates it as 5/10. Pt. denies radiation of pain. Currently, he just complains of the left lateral abdominal pain, numbness and tingling of hands bilaterally, and slight SOB. CT reads retrograde enhancement from L iliac artery. 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 PMHx: AAA, HTN, GERD, depression, CHF, GI bleeding, CAD, s/p CABG and Mitral valve repair, SVG Bare Metal Stent Allergies: Avelox Surgery: cholecystectomy (2012), colectomy, aortic stent (2009), mitral valve replacement (2006) Hospitalizations: for above surgeries FHx: brother, sister-stroke, [place] Medications: stopped taking months ago (Crestor 5mg, Ranitidine 150mg, Fluoxetine 20mg, Vit. D3 20,000) Social Hx: past smoker (quit 20 yrs. ago; 2 packs/day); denies alcohol and drug use Review of Systems - Review of Systems Review of Systems: see HPI - Constitutional Constitutional: As Per HPI - EENT Eyes: As Per HPI. absent: Blurred Vision Ears: As Per HPI Nose/Mouth/Throat: Nasal Discharge - Cardiovascular Cardiovascular: absent: Chest Pain - Respiratory Respiratory: Dyspnea - Gastrointestinal Gastrointestinal: Abdominal Pain Additional comments: Left lateral abdominal pain - Genitourinary Genitourinary: absent: Dysuria, Urinary Frequency - Musculoskeletal Musculoskeletal: Arthralgias - Psychiatric Psychiatric: Depression Physical Exam - Constitutional Appears: Well - Head Exam Head Exam: ATRAUMATIC, NORMAL INSPECTION, NORMOCEPHALIC - Eye Exam Eye Exam: EOMI, Normal appearance, PERRL Pupil Exam: NORMAL ACCOMODATION, PERRL - ENT Exam ENT Exam: Mucous Membranes Moist, Normal Exam - Neck Exam Neck exam: Positive for: Normal Inspection - Respiratory Exam Respiratory Exam: Rales Additional comments: Expiratory rales bilaterally - Cardiovascular Exam Cardiovascular Exam: REGULAR RHYTHM, +S1, +S2 - GI/Abdominal Exam GI & Abdominal Exam: Normal Bowel Sounds, Soft, Tenderness Additional comments: Left lateral pain - Extremities Exam Extremities exam: Positive for: normal inspection - Back Exam Back exam: NORMAL INSPECTION - Neurological Exam Neurological exam: Alert, CN II-XII Intact, Oriented x3, Reflexes Normal - Psychiatric Exam Psychiatric exam: Normal Affect - Skin Skin Exam: Normal Color Past Patient History - Infectious Disease Hx of Infectious Diseases: None - Past Medical History & Family History Past Medical History?: Yes - Past Social History Smoking Status: Never Smoked - CARDIAC Hx Cardia Arrhythmia: Yes (A FIB) Hx Congestive Heart Failure: Yes Hx Hypertension: Yes - PULMONARY Hx Chronic Obstructive Pulmonary Disease (COPD): Yes Hx Emphysema: Yes - NEUROLOGICAL Hx Neurological Disorder: Yes Hx Dizziness: Yes - HEENT Hx HEENT Problems: Yes Hx Cataracts: Yes (BILAT IOL) Other/Comment: LEFTB EYELID SLIGHT EDEMA SX 2 WEEKSCAGO - RENAL Hx Chronic Kidney Disease: Yes (RENAL INSUFFICIENCY) Hx Kidney Stones: Yes - ENDOCRINE/METABOLIC Hx Endocrine Disorders: No - HEMATOLOGICAL/ONCOLOGICAL Hx Anemia: Yes - INTEGUMENTARY Hx Dermatological Problems: No - MUSCULOSKELETAL/RHEUMATOLOGICAL Hx Arthritis: Yes Hx Falls: No - GASTROINTESTINAL Hx Gall Bladder Disease: Yes (CHOLECYSTECTOMY 3-4yrs ago) Other/Comment: colon removed 2008 - GENITOURINARY/GYNECOLOGICAL Hx Genitourinary Disorders: Yes Hx Prostate Problems: Yes Other/Comment: colon removed - PSYCHIATRIC Hx Substance Use: No - SURGICAL HISTORY Hx Cholecystectomy: Yes Hx Coronary Artery Bypass Graft: Yes Hx Coronary Stent: Yes Hx Valve Replacement: Yes (mitral [facility] 2006) - ANESTHESIA Hx Anesthesia: Yes Hx Anesthesia Reactions: No Hx Malignant Hyperthermia: No Meds Allergies/Adverse Reactions: Allergies Allergy/AdvReac Type Severity Reaction Status Date / Time moxifloxacin [From Avelox] Allergy Intermediate Verified 03/01/17 09:33 - Medications Medications: Current Medications Artificial Tears (Artificial Tears) 0 ml OU Q6H PRN PRN Reason: DRY EYE Last Admin: 03/02/17 17:19 Dose: 1 drop Aspirin (Ecotrin) 81 mg PO DAILY [facility] Last Admin: 03/03/17 10:07 Dose: 81 mg Enoxaparin Sodium (Lovenox) 40 mg SC DAILY [facility] Last Admin: 03/03/17 10:14 Dose: Not Given Fluoxetine HCl (Prozac) 20 mg PO DAILY [facility] Last Admin: 03/03/17 10:07 Dose: 20 mg Gabapentin (Neurontin) 300 mg PO TID [facility] Last Admin: 03/03/17 17:27 Dose: 300 mg Lactated Ringer's (Lactated Ringer's) 1,000 mls @ 100 mls/hr IV .Q10H [facility] Lisinopril (Zestril) 10 mg PO DAILY [facility] Last Admin: 03/03/17 10:07 Dose: 10 mg Metoprolol Tartrate (Lopressor) 25 mg PO BID [facility] Last Admin: 03/03/17 17:28 Dose: 25 mg Pantoprazole Sodium (Protonix Ec Tab) 20 mg PO DAILY [facility] Last Admin: 03/03/17 10:07 Dose: 20 mg Pneumococcal Polyvalent Vaccine (Pneumovax 23 Vaccine) 0.5 ml IM .ONCE ONE Stop: 03/04/17 10:01 Rosuvastatin Calcium (Crestor) 5 mg PO HS [facility] Last Admin: 03/02/17 21:15 Dose: 5 mg Results - Vital Signs Recent Vital Signs: Last Vital Signs Temp 97.5 F L 03/03/17 16:00 Pulse 62 03/03/17 16:00 Resp 20 03/03/17 16:00 BP 118/70 03/03/17 17:28 Pulse Ox 95 03/03/17 16:00 - Labs Result Diagrams: 03/01/17 10:34 03/01/17 10:34 Assessment & Plan - Assessment and Plan (Free Text) Assessment: (1) HTN (hypertension) Assessment and Plan: B.P control Status: Acute (2) Hyperlipemia Assessment and Plan: statin Status: Acute (3) Abdominal pain Status: Acute (4) Endoleak post endovascular aneurysm repair Assessment and Plan: vascular consult medical management Status: Acute (5) Pre Operative Cardiac Risk assessment 86 M with hx of CAD s/p CABG, S/P Mitral Valve Repair, s/p SVG graft stent, A Fib, Diastolic CHF Currently no cardiac symptoms For Type 1 Endoleak repair Assessed as -Low to moderate Cardiac risk if done under conscious sedation -Moderate to high cardiac risk if done under general anaesthesia If benefit outweighs the risk, please proceed with the needed procedure
[2017-03-03] MEDS: Aritificial Tears (15ml) OU PRN (22:00)
--- NOTE | 2017-03-03 22:15 | CP.PCM.PN ---
Subjective - Date & Time of Evaluation Date of Evaluation: 03/03/17 Time of Evaluation: 18:45 - Subjective Subjective: Pt is seen and examined today Objective - Vital Signs/Intake and Output Vital Signs (last 24 hours): Temp Pulse Resp BP Pulse Ox 97.5 F L 62 20 118/70 95 03/03/17 16:00 03/03/17 16:00 03/03/17 16:00 03/03/17 17:28 03/03/17 16:00 Intake and Output: 03/03/17 03/04/17 18:59 06:59 Intake Total 400 Balance 400 - Medications Medications: Current Medications Artificial Tears (Artificial Tears) 0 ml OU Q6H PRN PRN Reason: DRY EYE Last Admin: 03/02/17 17:19 Dose: 1 drop Aspirin (Ecotrin) 81 mg PO DAILY [facility] Last Admin: 03/03/17 10:07 Dose: 81 mg Enoxaparin Sodium (Lovenox) 40 mg SC DAILY [facility] Last Admin: 03/03/17 10:14 Dose: Not Given Fluoxetine HCl (Prozac) 20 mg PO DAILY [facility] Last Admin: 03/03/17 10:07 Dose: 20 mg Gabapentin (Neurontin) 300 mg PO TID [facility] Last Admin: 03/03/17 17:27 Dose: 300 mg Lactated Ringer's (Lactated Ringer's) 1,000 mls @ 100 mls/hr IV .Q10H [facility] Lisinopril (Zestril) 10 mg PO DAILY [facility] Last Admin: 03/03/17 10:07 Dose: 10 mg Metoprolol Tartrate (Lopressor) 25 mg PO BID [facility] Last Admin: 03/03/17 17:28 Dose: 25 mg Pantoprazole Sodium (Protonix Ec Tab) 20 mg PO DAILY [facility] Last Admin: 03/03/17 10:07 Dose: 20 mg Pneumococcal Polyvalent Vaccine (Pneumovax 23 Vaccine) 0.5 ml IM .ONCE ONE Stop: 03/04/17 10:01 Rosuvastatin Calcium (Crestor) 5 mg PO HS [facility] Last Admin: 03/02/17 21:15 Dose: 5 mg - Labs Labs: 03/01/17 10:34 03/01/17 10:34 PT 11.9 SECONDS (9.7-12.2) 03/01/17 10:34 INR 1.0 03/01/17 10:34 APTT 31 SECONDS (21-34) 03/01/17 10:34 Assessment and Plan (1) HTN (hypertension) Status: Acute (2) Hyperlipemia Status: Acute (3) Abdominal pain Status: Acute (4) Endoleak post endovascular aneurysm repair Status: Acute
[2017-03-03] MEDS: Lactated Ringer's 1,000 ML IV SCH (23:59)
[2017-03-04 06:24] LABS: BASO % 0.5 % (0.0-2.0); EOS # 0.2 K/uL (0.0-0.7); LYMPH # 1.6 K/uL (1.0-4.3); LYMPH % 27.7 % (20.0-40.0); MEAN CELL VOLUME 96.1 fL (80.0-94.0); MEAN CORPUSCULAR HEMOGLOBIN 32.7 pg (27.0-31.0); MEAN PLATELET VOLUME 8.5 fL (7.2-11.7); MONO # 0.7 K/uL (0.0-0.8); MONO % 11.4 % (0.0-10.0); NEUT # 3.3 K/uL (1.8-7.0); NEUT % 57.4 % (50.0-75.0); RBC 2.76 Mil/uL (4.40-5.90); RED CELL DISTRIBUTION WIDTH 13.7 % (11.5-14.5); WHITE BLOOD COUNT 5.7 K/uL (4.8-10.8)
[2017-03-04 06:39] LABS: ALB/GLOB RATIO 1.2 (1.0-2.1); ALBUMIN 3.5 g/dL (3.5-5.0); CALCIUM 8.6 mg/dl (8.6-10.4)
[2017-03-04] MEDS: Enoxaparin 40 mg Syringe SC SCH (09:53)
[2017-03-04] MEDS: Pantoprazole 20 mg EC Tab PO SCH (09:54)
[2017-03-04] MEDS: Lactated Ringer's 1,000 ML IV SCH ×2 (09:56→20:00)
[2017-03-04] MEDS ORDERED: Pneumococcal 23-Valent Vaccine IM ONE (10:00)
[2017-03-04] MEDS ORDERED: Influenza Vaccine 60 mcg/0.5 mL SYR (4YR UP) IM ONE (10:00)
[2017-03-04] MEDS ORDERED: HEPARIN-NS 5,000 UNITS/500 ML 10,000 UNIT/1,000 ML BAG IV ONE (11:56)
[2017-03-04] MEDS ORDERED: ceFAZolin IV 1 gm in Dextrose 1 GM/50 ML BAG IVPB ONE (11:56)
[2017-03-04] MEDS ORDERED: Iodixanol 320 MG/ML 200 ML BOTTLE IV ONE ×2 (11:57→13:01)
[2017-03-04] MEDS ORDERED: Lactated Ringer's 1,000 ML IV ONE ×2 (12:10→16:00)
[2017-03-04] MEDS ORDERED: Propofol 10 mg/ml Inj (20 ML) ONE (12:18)
[2017-03-04] MEDS ORDERED: Succinylcholine Chloride 20 mg/ml Syr (5 ml) IV ONE (12:19)
[2017-03-04] MEDS ORDERED: Rocuronium 10 mg/ml (5 ml) ONE (12:38)
[2017-03-04] MEDS ORDERED: ePHEDrine 50 mg/ml Inj ONE (12:57)
[2017-03-04] MEDS ORDERED: Neostigmine Methylsulfate 3mg/3ml Syringe IV ONE (13:47)
[2017-03-04] MEDS ORDERED: Sodium Chloride 0.9% 1,000 ML IV ONE (14:00)
[2017-03-04] MEDS ORDERED: HYDROmorphone 0.5 mg/0.5 ml ISec IVP PRN (14:47)
[2017-03-04] MEDS ORDERED: Oxycodone/Acetaminophen 5/325 mg Tab PO PRN (14:48)
--- NOTE | 2017-03-04 14:59 | PCM.SURG1 ---
Surgeon's Initial Post Op Note - Surgeon's Notes Surgeon: Dr. 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
--- NOTE | 2017-03-04 15:02 | RAD ---
PROCEDURE: Intraoperative Fluoroscopy. HISTORY: ENDOVASCULAR GRAFT REPAIR. LEFT COMMON ILIAC ANEURYSM FINDINGS: Fluoroscopic assistance was provided for endovascular graft repair.
--- NOTE | 2017-03-04 17:20 | CP.PCM.CON ---
<Krish Richards - Last Filed: 03/04/17 18:03> History of Present Illness - History of Present Illness History of Present Illness: CCU Consult Note HPI: 86M PMHx mitral valve prolapse/bioprosthetic valve 2006, CAD s/p stent, AAA with stent, afib not anticoagulated, CHF, presented on 03/01 with complaint of localized left lateral abdominal pain worse at night for about a month. CT abd/pelvis shows retrograde enhancement from left iliac artery. Patient went for revision of AAA endoscopic. Asked to observe patient in ICU overnight given gravity of procedure. for closer monitoring. Patient stable on exam. Looks comfortable. Will watch closely PMH: AAA, HTN, GERD, depression, CHF, CAD, Afib, Hyperlipidemia PSH: cholecystectomy (2012), colectomy, aortic stent (2009), mitral valve replacement (2006) FH: brother-[place], sister- stroke SH: past smoker- quit 20 years ago; 2 ppd, denies alcohol or drug use All: avelox Review of Systems - Review of Systems Review of Systems: per HPI Past Patient History - Infectious Disease Hx of Infectious Diseases: None - Past Medical History & Family History Past Medical History?: Yes - Past Social History Smoking Status: Never Smoked - CARDIAC Hx Cardia Arrhythmia: Yes (A FIB) Hx Congestive Heart Failure: Yes Hx Hypertension: Yes - PULMONARY Hx Chronic Obstructive Pulmonary Disease (COPD): Yes Hx Emphysema: Yes - NEUROLOGICAL Hx Neurological Disorder: Yes Hx Dizziness: Yes - HEENT Hx HEENT Problems: Yes Hx Cataracts: Yes (BILAT IOL) Other/Comment: LEFTB EYELID SLIGHT EDEMA SX 2 WEEKSCAGO - RENAL Hx Chronic Kidney Disease: Yes (RENAL INSUFFICIENCY) Hx Kidney Stones: Yes - ENDOCRINE/METABOLIC Hx Endocrine Disorders: No - HEMATOLOGICAL/ONCOLOGICAL Hx Anemia: Yes - INTEGUMENTARY Hx Dermatological Problems: No - MUSCULOSKELETAL/RHEUMATOLOGICAL Hx Arthritis: Yes Hx Falls: No - GASTROINTESTINAL Hx Gall Bladder Disease: Yes (CHOLECYSTECTOMY 3-4yrs ago) Other/Comment: colon removed 2008 - GENITOURINARY/GYNECOLOGICAL Hx Genitourinary Disorders: Yes Hx Prostate Problems: Yes Other/Comment: colon removed - PSYCHIATRIC Hx Substance Use: No - SURGICAL HISTORY Hx Cholecystectomy: Yes Hx Coronary Artery Bypass Graft: Yes Hx Coronary Stent: Yes Hx Valve Replacement: Yes (mitral [facility] 2007) - ANESTHESIA Hx Anesthesia: Yes Hx Anesthesia Reactions: No Hx Malignant Hyperthermia: No Meds Allergies/Adverse Reactions: Allergies Allergy/AdvReac Type Severity Reaction Status Date / Time moxifloxacin [From Avelox] Allergy Intermediate Verified 03/01/17 09:33 - Medications Medications: Current Medications Artificial Tears (Artificial Tears) 0 ml OU Q6H PRN PRN Reason: DRY EYE Last Admin: 03/03/17 22:00 Dose: 1 drop Aspirin (Ecotrin) 81 mg PO DAILY [facility] Last Admin: 03/04/17 09:53 Dose: Not Given Enoxaparin Sodium (Lovenox) 40 mg SC DAILY [facility] Last Admin: 03/04/17 09:53 Dose: Not Given Fluoxetine HCl (Prozac) 20 mg PO DAILY [facility] Last Admin: 03/04/17 09:54 Dose: Not Given Gabapentin (Neurontin) 300 mg PO TID [facility] Last Admin: 03/04/17 13:07 Dose: Not Given Hydromorphone HCl (Dilaudid) 0.5 mg IVP Q4H PRN PRN Reason: Pain, severe (8-10) Lactated Ringer's (Lactated Ringer's) 1,000 mls @ 100 mls/hr IV .Q10H [facility] Last Admin: 03/04/17 09:56 Dose: Not Given Lisinopril (Zestril) 10 mg PO DAILY [facility] Last Admin: 03/04/17 09:58 Dose: Not Given Metoprolol Tartrate (Lopressor) 25 mg PO BID [facility] Last Admin: 03/04/17 09:58 Dose: Not Given Oxycodone/Acetaminophen (Percocet 5/325 Mg Tab) 2 tab PO Q4H PRN PRN Reason: Pain, moderate (4-7) Stop: 03/07/17 14:49 Pantoprazole Sodium (Protonix Ec Tab) 20 mg PO DAILY [facility] Last Admin: 03/04/17 09:54 Dose: Not Given Rosuvastatin Calcium (Crestor) 5 mg PO [facility] Last Admin: 03/03/17 22:40 Dose: 5 mg Physical Exam - Constitutional Appears: Well, Non-toxic, No Acute Distress - Head Exam Head Exam: ATRAUMATIC, NORMAL INSPECTION, NORMOCEPHALIC - Eye Exam Eye Exam: EOMI Pupil Exam: NORMAL ACCOMODATION - ENT Exam ENT Exam: Mucous Membranes Moist - Respiratory Exam Respiratory Exam: Clear to Auscultation Bilateral, NORMAL BREATHING PATTERN - Cardiovascular Exam Cardiovascular Exam: REGULAR RHYTHM - GI/Abdominal Exam GI & Abdominal Exam: Normal Bowel Sounds, Soft. absent: Distended, Tenderness - Extremities Exam Extremities exam: Negative for: joint swelling, tenderness - Neurological Exam Neurological exam: Alert, Oriented x3 - Psychiatric Exam Psychiatric exam: Normal Affect, Normal Mood - Skin Skin Exam: Dry, Intact, Normal Color, Warm Results - Vital Signs Recent Vital Signs: Last Vital Signs Temp 97.0 F L 03/04/17 14:36 Pulse 62 03/04/17 16:30 Resp 17 03/04/17 16:30 BP 131/68 03/04/17 16:30 Pulse Ox 100 03/04/17 16:30 - Labs Result Diagrams: 03/04/17 06:05 03/04/17 06:05 Labs: Laboratory Results - last 24 hr 03/04/17 03/04/17 03/04/17 06:05 06:05 06:05 WBC 5.7 RBC 2.76 L Hgb 9.0 L Hct 26.5 L MCV 96.1 H MCH 32.7 H MCHC 34.0 RDW 13.7 Plt Count 136 MPV 8.5 Neut % (Auto) 57.4 Lymph % (Auto) 27.7 Linn % (Auto) 11.4 H Eos % (Auto) 3.0 Baso % (Auto) 0.5 Neut # 3.3 Lymph # 1.6 Linn # 0.7 Eos # 0.2 Baso # 0.0 Sodium 133 Potassium 4.9 Chloride 104 Carbon Dioxide 23 Anion Gap 12 BUN 44 H Creatinine 2.5 H Est GFR ( Amer) 30 Est GFR (Non-Af Amer) 24 Random Glucose 97 Calcium 8.6 Total Bilirubin 0.4 AST 16 L ALT 12 L D Alkaline Phosphatase 43 Total Protein 6.4 Albumin 3.5 Globulin 2.9 Albumin/Globulin Ratio 1.2 Blood Type O POSITIVE Antibody Screen Negative Assessment & Plan - Assessment and Plan (Free Text) Assessment: 86M s/p endo AAA revision Plan: Neuro A&Ox3 Dilaudid 0.5 Q4 PRN severe pain Percocet 325 2 tab Q4 moderate pain CV: typeI endoleak repair, hx mitral valve repair, CAD stent, HTN, CHF, Afib, Consult (Dr. Saha) BP control Lisinopril 10 PO Lopressor 25 PO BID Crestor 5 PO Renal BUN/Cr: 44/2.5 Lacted ringer 100mls/hr Nutrition: heart healthy diet GI Zofran 4 IV prn Prophylaxis GI: protonix DVT: lovenox <SergoEle - Last Filed: 03/07/17 02:50> Meds - Medications Medications: Current Medications Albuterol/Ipratropium (Duoneb 3 Mg/0.5 Mg (3 Ml) Ud) 3 ml INH RQ2 PRN PRN Reason: Shortness of Breath Last Admin: 03/07/17 01:13 Dose: 3 ml Artificial Tears (Artificial Tears) 0 ml OU Q6H PRN PRN Reason: DRY EYE Last Admin: 03/06/17 10:40 Dose: 1 drop Aspirin (Ecotrin) 81 mg PO DAILY [facility] Last Admin: 03/06/17 10:39 Dose: 81 mg Enoxaparin Sodium (Lovenox) 30 mg SC DAILY [facility] Last Admin: 03/06/17 10:41 Dose: Not Given Fluoxetine HCl (Prozac) 20 mg PO DAILY [facility] Last Admin: 03/06/17 10:40 Dose: 20 mg Gabapentin (Neurontin) 300 mg PO TID [facility] Last Admin: 03/06/17 18:04 Dose: 300 mg Hydromorphone HCl (Dilaudid) 0.5 mg IVP Q4H PRN PRN Reason: Pain, severe (8-10) Lisinopril (Zestril) 5 mg PO DAILY [facility] Metoprolol Tartrate (Lopressor) 25 mg PO BID [facility] Last Admin: 03/06/17 18:04 Dose: 25 mg Oxycodone/Acetaminophen (Percocet 5/325 Mg Tab) 2 tab PO Q4H PRN PRN Reason: Pain, moderate (4-7) Stop: 03/07/17 14:49 Pantoprazole Sodium (Protonix Ec Tab) 20 mg PO DAILY [facility] Last Admin: 03/06/17 10:40 Dose: 20 mg Rosuvastatin Calcium (Crestor) 5 mg PO HS [facility] Last Admin: 03/06/17 21:25 Dose: 5 mg Results - Vital Signs Recent Vital Signs: Last Vital Signs Temp 99.3 F 03/06/17 23:00 Pulse 63 03/06/17 23:00 Resp 20 03/06/17 23:00 BP 121/73 03/06/17 23:00 Pulse Ox 95 03/06/17 23:00 - Labs Result Diagrams: 03/06/17 07:36 03/05/17 06:27 Labs: Laboratory Results - last 24 hr 03/04/17 03/06/17 06:05 07:36 WBC 7.1 RBC 2.40 L Hgb 7.8 L Hct 23.0 L MCV 95.9 H MCH 32.4 H MCHC 33.8 RDW 14.0 Plt Count 131 MPV 8.8 Neut % (Auto) 71.5 Lymph % (Auto) 14.2 L [place]inn % (Auto) 12.1 H Eos % (Auto) 1.7 Baso % (Auto) 0.5 Neut # 5.0 Lymph # 1.0 Linn # 0.9 H Eos # 0.1 Baso # 0.0 Blood Type O POSITIVE Antibody Screen Negative Attending/Attestation - Attestation I have personally seen and examined this patient.: Yes I have fully participated in the care of the patient.: Yes I have reviewed all pertinent clinical information: Yes Notes (Text): Agree with the resident notes, discussion was made to during the rounds. Labs reviewed Continue the current treatment
[2017-03-04] MEDS: Aritificial Tears (15ml) OU PRN (21:52)
--- NOTE | 2017-03-04 22:28 | CP.PCM.PN ---
Subjective - Date & Time of Evaluation Date of Evaluation: 03/04/17 Time of Evaluation: 18:20 - Subjective Subjective: Patient s/p endoleak repair with Stent Denies chest pain and dyspnea No cardiac events noted Objective - Vital Signs/Intake and Output Vital Signs (last 24 hours): Temp Pulse Resp BP Pulse Ox 97.7 F 69 16 143/65 100 03/04/17 20:00 03/04/17 20:00 03/04/17 20:00 03/04/17 21:54 03/04/17 20:00 - Medications Medications: Current Medications Artificial Tears (Artificial Tears) 0 ml OU Q6H PRN PRN Reason: DRY EYE Last Admin: 03/04/17 21:52 Dose: 1 drop Aspirin (Ecotrin) 81 mg PO DAILY [facility] Last Admin: 03/04/17 09:53 Dose: Not Given Enoxaparin Sodium (Lovenox) 40 mg SC DAILY [facility] Last Admin: 03/04/17 09:53 Dose: Not Given Fluoxetine HCl (Prozac) 20 mg PO DAILY [facility] Last Admin: 03/04/17 09:54 Dose: Not Given Gabapentin (Neurontin) 300 mg PO TID [facility] Last Admin: 03/04/17 22:11 Dose: 300 mg Hydromorphone HCl (Dilaudid) 0.5 mg IVP Q4H PRN PRN Reason: Pain, severe (8-10) Lactated Ringer's (Lactated Ringer's) 1,000 mls @ 100 mls/hr IV .Q10H [facility] Last Admin: 03/04/17 09:56 Dose: Not Given Lisinopril (Zestril) 10 mg PO DAILY [facility] Last Admin: 03/04/17 09:58 Dose: Not Given Metoprolol Tartrate (Lopressor) 25 mg PO BID [facility] Last Admin: 03/04/17 21:54 Dose: 25 mg Oxycodone/Acetaminophen (Percocet 5/325 Mg Tab) 2 tab PO Q4H PRN PRN Reason: Pain, moderate (4-7) Stop: 03/07/17 14:49 Pantoprazole Sodium (Protonix Ec Tab) 20 mg PO DAILY [facility] Last Admin: 03/04/17 09:54 Dose: Not Given Rosuvastatin Calcium (Crestor) 5 mg PO HS [facility] Last Admin: 03/04/17 21:53 Dose: 5 mg - Labs Labs: 03/04/17 06:05 03/04/17 06:05 PT 11.9 SECONDS (9.7-12.2) 03/01/17 10:34 INR 1.0 03/01/17 10:34 APTT 31 SECONDS (21-34) 03/01/17 10:34
--- NOTE | 2017-03-04 23:01 | CP.PCM.PN ---
Subjective - Date & Time of Evaluation Date of Evaluation: 03/04/17 Time of Evaluation: 19:35 - Subjective Subjective: Patient s/p endoleak repair with Stent, he is having post op pain, but alyssa any cough, chest pain and dyspnea No cardiac events noted Objective - Vital Signs/Intake and Output Vital Signs (last 24 hours): Temp Pulse Resp BP Pulse Ox 97.7 F 69 16 143/65 100 03/04/17 20:00 03/04/17 20:00 03/04/17 20:00 03/04/17 21:54 03/04/17 20:00 - Medications Medications: Current Medications Artificial Tears (Artificial Tears) 0 ml OU Q6H PRN PRN Reason: DRY EYE Last Admin: 03/04/17 21:52 Dose: 1 drop Aspirin (Ecotrin) 81 mg PO DAILY [facility] Last Admin: 03/04/17 09:53 Dose: Not Given Enoxaparin Sodium (Lovenox) 40 mg SC DAILY [facility] Last Admin: 03/04/17 09:53 Dose: Not Given Fluoxetine HCl (Prozac) 20 mg PO DAILY [facility] Last Admin: 03/04/17 09:54 Dose: Not Given Gabapentin (Neurontin) 300 mg PO TID [facility] Last Admin: 03/04/17 22:11 Dose: 300 mg Hydromorphone HCl (Dilaudid) 0.5 mg IVP Q4H PRN PRN Reason: Pain, severe (8-10) Lactated Ringer's (Lactated Ringer's) 1,000 mls @ 100 mls/hr IV .Q10H [facility] Last Admin: 03/04/17 09:56 Dose: Not Given Lisinopril (Zestril) 10 mg PO DAILY [facility] Last Admin: 03/04/17 09:58 Dose: Not Given Metoprolol Tartrate (Lopressor) 25 mg PO BID [facility] Last Admin: 03/04/17 21:54 Dose: 25 mg Oxycodone/Acetaminophen (Percocet 5/325 Mg Tab) 2 tab PO Q4H PRN PRN Reason: Pain, moderate (4-7) Stop: 03/07/17 14:49 Pantoprazole Sodium (Protonix Ec Tab) 20 mg PO DAILY [facility] Last Admin: 03/04/17 09:54 Dose: Not Given Rosuvastatin Calcium (Crestor) 5 mg PO HS [facility] Last Admin: 03/04/17 21:53 Dose: 5 mg - Labs Labs: 03/04/17 06:05 03/04/17 06:05 PT 11.9 SECONDS (9.7-12.2) 03/01/17 10:34 INR 1.0 03/01/17 10:34 APTT 31 SECONDS (21-34) 03/01/17 10:34 - Constitutional Appears: No Acute Distress - Head Exam Head Exam: ATRAUMATIC, NORMAL INSPECTION, NORMOCEPHALIC - Eye Exam Eye Exam: EOMI, Normal appearance, PERRL Pupil Exam: NORMAL ACCOMODATION, PERRL - ENT Exam ENT Exam: Mucous Membranes Moist, Normal Exam - Respiratory Exam Respiratory Exam: Clear to Ausculation Bilateral, NORMAL BREATHING PATTERN - Cardiovascular Exam Cardiovascular Exam: REGULAR RHYTHM, +S1, +S2. absent: Murmur Assessment and Plan (1) HTN (hypertension) Status: Acute (2) Hyperlipemia Status: Acute (3) Abdominal pain Status: Acute (4) Endoleak post endovascular aneurysm repair Status: Acute
--- NOTE | 2017-03-05 01:14 | OP ---
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 PROCEDURES CARRIED OUT: Aortofemoral angiogram and repair of left common iliac artery stent graft with placement of a 23 mm x 10 cm left iliac artery limb. SURGEON: Yair Pennington Jr., MD. IRONWORKER MACHINE OPERATOR: Dr. Alysha Delaney. ANESTHESIA ADMINISTERED BY: Dr. Sanon; supplemented by Dr. Mcguire. INDICATIONS: The patient is an 86-year-old man who had an endovascular repair approximately 8 years ago with deployment of an AneuRx graft. He presented with abdominal pain, was found to have an endoleak involving the left limb of the graft at its junction with the iliac artery. OPERATIVE FINDINGS: The stent was deployed successfully and subsequent films showed no evidence of any residual endoleak. In addition, both renal arteries were clearly seen. The iliac artery was clearly seen. There was no evidence of a type-2 or other leaks seen on the films. DESCRIPTION OF PROCEDURE: The patient was given general anesthesia. The left groin was explored by means of a cut-down, and the common femoral artery was exposed. After exposure of the vessel, a 5-Yi sheath was inserted and a guidewire was advanced into the previously-placed aneurysm graft. This was somewhat difficult due to tortuosity and was eventually carried out with the use of a non-stiff Angle Phelps with the use of a Berenstein catheter. After this had been done, this was replaced with a stiff Amplatz wire and then the graft was deployed successfully. The arteriotomy and the groin were closed successfully, and the procedure was terminated. Blood loss for procedure was approximately 50 mL. Operations carried out are aortofemoral angiogram, and endovascular repair of left common and iliac artery aneurysm with deployment of a 23 mm x 10 cm GORE-REJI Excluder limb graft. Yair Pennington Jr., MD
[2017-03-05] MEDS: Lactated Ringer's 1,000 ML IV SCH ×3 (06:30→23:59)
[2017-03-05 06:42] LABS: BASO % 0.4 % (0.0-2.0); EOS # 0.1 K/uL (0.0-0.7); EOS % 0.9 % (0.0-4.0); MEAN CELL VOLUME 96.1 fL (80.0-94.0); MEAN CORPUSCULAR HEMOGLOBIN 32.6 pg (27.0-31.0); MEAN CORPUSCULAR HGB CONC 33.9 g/dL (33.0-37.0); MEAN PLATELET VOLUME 8.6 fL (7.2-11.7); MONO # 0.6 K/uL (0.0-0.8); MONO % 9.7 % (0.0-10.0); NEUT # 4.9 K/uL (1.8-7.0); RBC 2.47 Mil/uL (4.40-5.90); RED CELL DISTRIBUTION WIDTH 13.4 % (11.5-14.5); WHITE BLOOD COUNT 6.6 K/uL (4.8-10.8)
[2017-03-05 06:52] LABS: ALB/GLOB RATIO 1.1 (1.0-2.1); ALBUMIN 3.2 g/dL (3.5-5.0); CALCIUM 8.5 mg/dl (8.6-10.4)
--- NOTE | 2017-03-05 08:46 | CP.PCM.PN ---
Subjective - Date & Time of Evaluation Date of Evaluation: 03/05/17 Time of Evaluation: 08:43 - Subjective Subjective: Surgery Pt s&e. Tolerated surgery yestserday. Pain controlled. AAOx3Thomas Amador has 700cc/ 12hrs. Denies F/C?N/V/D/CP. Satting at 80s % with NC. C/o SOB Objective - Vital Signs/Intake and Output Vital Signs (last 24 hours): Temp Pulse Resp BP Pulse Ox 98.2 F 73 16 143/65 98 03/04/17 21:30 03/04/17 21:30 03/04/17 21:30 03/04/17 21:54 03/04/17 21:30 Intake and Output: 03/05/17 03/05/17 06:59 18:59 Intake Total 1000 100 Output Total 640 60 Balance 360 40 - Medications Medications: Current Medications Artificial Tears (Artificial Tears) 0 ml OU Q6H PRN PRN Reason: DRY EYE Last Admin: 03/04/17 21:52 Dose: 1 drop Aspirin (Ecotrin) 81 mg PO DAILY [facility] Last Admin: 03/04/17 09:53 Dose: Not Given Enoxaparin Sodium (Lovenox) 40 mg SC DAILY [facility] Last Admin: 03/04/17 09:53 Dose: Not Given Fluoxetine HCl (Prozac) 20 mg PO DAILY [facility] Last Admin: 03/04/17 09:54 Dose: Not Given Gabapentin (Neurontin) 300 mg PO TID [facility] Last Admin: 03/04/17 22:11 Dose: 300 mg Hydromorphone HCl (Dilaudid) 0.5 mg IVP Q4H PRN PRN Reason: Pain, severe (8-10) Lactated Ringer's (Lactated Ringer's) 1,000 mls @ 100 mls/hr IV .Q10H [facility] Last Admin: 03/05/17 06:30 Dose: 100 mls/hr Lisinopril (Zestril) 10 mg PO DAILY [facility] Last Admin: 03/04/17 09:58 Dose: Not Given Metoprolol Tartrate (Lopressor) 25 mg PO BID [facility] Last Admin: 03/04/17 21:54 Dose: 25 mg Oxycodone/Acetaminophen (Percocet 5/325 Mg Tab) 2 tab PO Q4H PRN PRN Reason: Pain, moderate (4-7) Stop: 03/07/17 14:49 Pantoprazole Sodium (Protonix Ec Tab) 20 mg PO DAILY [facility] Last Admin: 03/04/17 09:54 Dose: Not Given Rosuvastatin Calcium (Crestor) 5 mg PO HS [facility] Last Admin: 03/04/17 21:53 Dose: 5 mg - Labs Labs: 03/05/17 06:27 03/05/17 06:27 PT 11.9 SECONDS (9.7-12.2) 03/01/17 10:34 INR 1.0 03/01/17 10:34 APTT 31 SECONDS (21-34) 03/01/17 10:34 - Constitutional Appears: Non-toxic - Head Exam Head Exam: ATRAUMATIC, NORMAL INSPECTION, NORMOCEPHALIC - Eye Exam Eye Exam: EOMI, Normal appearance, PERRL Pupil Exam: NORMAL ACCOMODATION, PERRL - ENT Exam ENT Exam: Mucous Membranes Moist, Normal Exam - Neck Exam Neck Exam: Full ROM, Normal Inspection. absent: Lymphadenopathy - Respiratory Exam Respiratory Exam: Clear to Ausculation Bilateral, NORMAL BREATHING PATTERN - Cardiovascular Exam Cardiovascular Exam: REGULAR RHYTHM, +S1, +S2. absent: Murmur - GI/Abdominal Exam GI & Abdominal Exam: Soft, Normal Bowel Sounds. absent: Distended, Tenderness - Rectal Exam Rectal Exam: NORMAL INSPECTION - Exam Exam: NORMAL INSPECTION - Extremities Exam Extremities Exam: Full ROM Additional comments: Dressing C/D/I. MIld TTP L groin. - Back Exam Back Exam: NORMAL INSPECTION - Neurological Exam Neurological Exam: Alert, Awake, CN II-XII Intact, Normal Gait, Oriented x3 - Psychiatric Exam Psychiatric exam: Normal Affect, Normal Mood - Skin Skin Exam: Dry, Intact, Normal Color, Warm Assessment and Plan - Assessment and Plan (Free Text) Assessment: POD 1 s/p endograft repair of L iliac A stent. -REg diet -Medical management -monitor hematoma /bleeding -MOnitor VS/labs DW Dr. Pennington
[2017-03-05] MEDS: Albuterol-Ipratrop 3 mg / 0.5 (3 ml) UD INH PRN (10:53)
[2017-03-05] MEDS: Pantoprazole 20 mg EC Tab PO SCH (10:56)
[2017-03-05] MEDS: Enoxaparin 40 mg Syringe SC SCH (11:00)
[2017-03-05 18:18] VITALS: RESP 20
--- NOTE | 2017-03-05 22:23 | CARD ---
APPROVED REPORT EXAM: Two-dimensional and M-mode echocardiogram with Doppler and color Doppler. Other Information Quality : GoodRhythm : INDICATION Mitral Valve Repair RISK FACTORS Hypertension Hyperlipidemia 2D DIMENSIONS IVSd1.3 (0.7-1.1cm)LVDd5.1 (3.9-5.9cm) PWd1.3 (0.7-1.1cm)IVSs1.9 (0.8-1.2cm) LVDs4.4 (2.5-4.0cm)FS (%) 14.2 % PWs1.2 (0.8-1.2cm)LVEF (%)30.0 (>50%) M-Mode DIMENSIONS Left Atrium (MM)6.25 (2.5-4.0cm)IVSd0.99 (0.7-1.1cm) Aortic Root3.99 (2.2-3.7cm)LVDd6.47 (4.0-5.6cm) Aortic Cusp Exc.2.21 (1.5-2.0cm)PWd1.90 (0.7-1.1cm) FS (%) 13 %LVDs5.65 (2.0-3.8cm) LVEF (%)27 (>50%) Mitral Valve MV E Cnyyexoq178.7cm/sMV [id number]/A ratio0.0 MVA (PHT)1.66cm2 TDI E/Lateral E'0.0E/Medial E'0.0 Tricuspid Valve TR Peak [id number]/sTR Peak Gr.[id number] LEFT VENTRICLE The left ventricle is normal size. There is normal left ventricular wall thickness. The systolic function is moderately to severely impaired. RIGHT VENTRICLE The right ventricle is normal size. ATRIA The left atrium is severely dilated. AORTIC VALVE The aortic valve is normal in structure. MITRAL VALVE There is a bioprosthetic mitral valve. TRICUSPID VALVE There is moderate to severe tricuspid regurgitation. GREAT VESSELS The ascending aorta is Mildly dilated. <Conclusion> Moderate to severe LV systolic dysfunction. Normal functioning Bioprosthetic Mitral valve. Trace AR. Severely dilated LA. Moderate to severe TR. Dilated Ascending Aorta.
--- NOTE | 2017-03-05 23:35 | CP.PCM.PN ---
Subjective - Date & Time of Evaluation Date of Evaluation: 03/05/17 Time of Evaluation: 19:00 - Subjective Subjective: Pt seen and examined by me today Objective - Vital Signs/Intake and Output Vital Signs (last 24 hours): Temp Pulse Resp BP Pulse Ox 98.1 F 57 L 20 128/69 100 03/05/17 18:18 03/05/17 18:18 03/05/17 18:18 03/05/17 18:18 03/05/17 18:18 Intake and Output: 03/05/17 03/06/17 18:59 06:59 Intake Total 1800 Output Total 182 Balance 1618 - Medications Medications: Current Medications Albuterol/Ipratropium (Duoneb 3 Mg/0.5 Mg (3 Ml) Ud) 3 ml INH RQ2 PRN PRN Reason: Shortness of Breath Last Admin: 03/05/17 10:53 Dose: 3 ml Artificial Tears (Artificial Tears) 0 ml OU Q6H PRN PRN Reason: DRY EYE Last Admin: 03/04/17 21:52 Dose: 1 drop Aspirin (Ecotrin) 81 mg PO DAILY [facility] Last Admin: 03/05/17 11:02 Dose: 81 mg Enoxaparin Sodium (Lovenox) 30 mg SC DAILY [facility] Fluoxetine HCl (Prozac) 20 mg PO DAILY [facility] Last Admin: 03/05/17 10:56 Dose: 20 mg Gabapentin (Neurontin) 300 mg PO TID [facility] Last Admin: 03/05/17 17:22 Dose: 300 mg Hydromorphone HCl (Dilaudid) 0.5 mg IVP Q4H PRN PRN Reason: Pain, severe (8-10) Lactated Ringer's (Lactated Ringer's) 1,000 mls @ 100 mls/hr IV .Q10H [facility] Last Admin: 03/05/17 16:30 Dose: 100 mls/hr Lisinopril (Zestril) 10 mg PO DAILY [facility] Last Admin: 03/05/17 10:58 Dose: 10 mg Metoprolol Tartrate (Lopressor) 25 mg PO BID [facility] Last Admin: 03/05/17 17:21 Dose: 25 mg Oxycodone/Acetaminophen (Percocet 5/325 Mg Tab) 2 tab PO Q4H PRN PRN Reason: Pain, moderate (4-7) Stop: 03/07/17 14:49 Pantoprazole Sodium (Protonix Ec Tab) 20 mg PO DAILY [facility] Last Admin: 03/05/17 10:56 Dose: 20 mg Rosuvastatin Calcium (Crestor) 5 mg PO HS [facility] Last Admin: 03/05/17 23:00 Dose: 5 mg - Labs Labs: 03/05/17 06:27 03/05/17 06:27 PT 11.9 SECONDS (9.7-12.2) 03/01/17 10:34 INR 1.0 03/01/17 10:34 APTT 31 SECONDS (21-34) 03/01/17 10:34 Assessment and Plan (1) HTN (hypertension) Status: Acute (2) Hyperlipemia Status: Acute (3) Abdominal pain Status: Acute (4) Endoleak post endovascular aneurysm repair Status: Acute
[2017-03-06] MEDS: Albuterol-Ipratrop 3 mg / 0.5 (3 ml) UD INH PRN ×3 (00:23→13:16)
[2017-03-06] MEDS: Lactated Ringer's 1,000 ML IV SCH ×3 (02:57→21:26)
[2017-03-06 07:54] LABS: BASO % 0.5 % (0.0-2.0); EOS # 0.1 K/uL (0.0-0.7); EOS % 1.7 % (0.0-4.0); HEMOGLOBIN 7.8 g/dL (12.0-18.0); LYMPH % 14.2 % (20.0-40.0); MEAN CELL VOLUME 95.9 fL (80.0-94.0); MEAN CORPUSCULAR HEMOGLOBIN 32.4 pg (27.0-31.0); MEAN CORPUSCULAR HGB CONC 33.8 g/dL (33.0-37.0); MEAN PLATELET VOLUME 8.8 fL (7.2-11.7); MONO # 0.9 K/uL (0.0-0.8); MONO % 12.1 % (0.0-10.0); NEUT % 71.5 % (50.0-75.0); NRBC % 0.1 % (0.0-2.0); RBC 2.4 Mil/uL (4.40-5.90); WHITE BLOOD COUNT 7.1 K/uL (4.8-10.8)
[2017-03-06] MEDS: Pantoprazole 20 mg EC Tab PO SCH (10:40)
[2017-03-06] MEDS: Aritificial Tears (15ml) OU PRN (10:40)
[2017-03-06] MEDS: Enoxaparin 30 mg Syringe SC SCH (10:41)
--- NOTE | 2017-03-06 22:10 | CP.PCM.PN ---
Subjective - Date & Time of Evaluation Date of Evaluation: 03/05/17 Time of Evaluation: 08:35 - Subjective Subjective: Patient s/p endoleak repair with Stent Denies chest pain and dyspnea No cardiac events noted Objective - Vital Signs/Intake and Output Vital Signs (last 24 hours): Temp Pulse Resp BP Pulse Ox 98.2 F 65 20 115/60 98 03/06/17 18:02 03/06/17 18:02 03/06/17 18:02 03/06/17 20:24 03/06/17 15:14 Intake and Output: 03/06/17 03/07/17 18:59 06:59 Intake Total 1375 Output Total 750 Balance 625 - Medications Medications: Current Medications Albuterol/Ipratropium (Duoneb 3 Mg/0.5 Mg (3 Ml) Ud) 3 ml INH RQ2 PRN PRN Reason: Shortness of Breath Last Admin: 03/06/17 13:16 Dose: 3 ml Artificial Tears (Artificial Tears) 0 ml OU Q6H PRN PRN Reason: DRY EYE Last Admin: 03/06/17 10:40 Dose: 1 drop Aspirin (Ecotrin) 81 mg PO DAILY [facility] Last Admin: 03/06/17 10:39 Dose: 81 mg Enoxaparin Sodium (Lovenox) 30 mg SC DAILY [facility] Last Admin: 03/06/17 10:41 Dose: Not Given Fluoxetine HCl (Prozac) 20 mg PO DAILY [facility] Last Admin: 03/06/17 10:40 Dose: 20 mg Gabapentin (Neurontin) 300 mg PO TID [facility] Last Admin: 03/06/17 18:04 Dose: 300 mg Hydromorphone HCl (Dilaudid) 0.5 mg IVP Q4H PRN PRN Reason: Pain, severe (8-10) Lactated Ringer's (Lactated Ringer's) 1,000 mls @ 100 mls/hr IV .Q10H [facility] Last Admin: 03/06/17 21:26 Dose: 100 mls/hr Lisinopril (Zestril) 5 mg PO DAILY [facility] Metoprolol Tartrate (Lopressor) 25 mg PO BID [facility] Last Admin: 03/06/17 18:04 Dose: 25 mg Oxycodone/Acetaminophen (Percocet 5/325 Mg Tab) 2 tab PO Q4H PRN PRN Reason: Pain, moderate (4-7) Stop: 03/07/17 14:49 Pantoprazole Sodium (Protonix Ec Tab) 20 mg PO DAILY [facility] Last Admin: 03/06/17 10:40 Dose: 20 mg Rosuvastatin Calcium (Crestor) 5 mg PO HS [facility] Last Admin: 03/06/17 21:25 Dose: 5 mg - Labs Labs: 03/06/17 07:36 03/05/17 06:27 PT 11.9 SECONDS (9.7-12.2) 03/01/17 10:34 INR 1.0 03/01/17 10:34 APTT 31 SECONDS (21-34) 03/01/17 10:34
--- NOTE | 2017-03-06 22:11 | CP.PCM.PN ---
Subjective - Date & Time of Evaluation Date of Evaluation: 03/06/17 Time of Evaluation: 09:45 - Subjective Subjective: Patient s/p endoleak repair with Stent Denies chest pain and dyspnea No cardiac events noted Objective - Vital Signs/Intake and Output Vital Signs (last 24 hours): Temp Pulse Resp BP Pulse Ox 98.2 F 65 20 115/60 98 03/06/17 18:02 03/06/17 18:02 03/06/17 18:02 03/06/17 20:24 03/06/17 15:14 Intake and Output: 03/06/17 03/07/17 18:59 06:59 Intake Total 1375 Output Total 750 Balance 625 - Medications Medications: Current Medications Albuterol/Ipratropium (Duoneb 3 Mg/0.5 Mg (3 Ml) Ud) 3 ml INH RQ2 PRN PRN Reason: Shortness of Breath Last Admin: 03/06/17 13:16 Dose: 3 ml Artificial Tears (Artificial Tears) 0 ml OU Q6H PRN PRN Reason: DRY EYE Last Admin: 03/06/17 10:40 Dose: 1 drop Aspirin (Ecotrin) 81 mg PO DAILY [facility] Last Admin: 03/06/17 10:39 Dose: 81 mg Enoxaparin Sodium (Lovenox) 30 mg SC DAILY [facility] Last Admin: 03/06/17 10:41 Dose: Not Given Fluoxetine HCl (Prozac) 20 mg PO DAILY [facility] Last Admin: 03/06/17 10:40 Dose: 20 mg Gabapentin (Neurontin) 300 mg PO TID [facility] Last Admin: 03/06/17 18:04 Dose: 300 mg Hydromorphone HCl (Dilaudid) 0.5 mg IVP Q4H PRN PRN Reason: Pain, severe (8-10) Lactated Ringer's (Lactated Ringer's) 1,000 mls @ 100 mls/hr IV .Q10H [facility] Last Admin: 03/06/17 21:26 Dose: 100 mls/hr Lisinopril (Zestril) 5 mg PO DAILY [facility] Metoprolol Tartrate (Lopressor) 25 mg PO BID [facility] Last Admin: 03/06/17 18:04 Dose: 25 mg Oxycodone/Acetaminophen (Percocet 5/325 Mg Tab) 2 tab PO Q4H PRN PRN Reason: Pain, moderate (4-7) Stop: 03/07/17 14:49 Pantoprazole Sodium (Protonix Ec Tab) 20 mg PO DAILY [facility] Last Admin: 03/06/17 10:40 Dose: 20 mg Rosuvastatin Calcium (Crestor) 5 mg PO HS [facility] Last Admin: 03/06/17 21:25 Dose: 5 mg - Labs Labs: 03/06/17 07:36 03/05/17 06:27 PT 11.9 SECONDS (9.7-12.2) 03/01/17 10:34 INR 1.0 03/01/17 10:34 APTT 31 SECONDS (21-34) 03/01/17 10:34
--- NOTE | 2017-03-06 23:13 | CP.PCM.PN ---
Subjective - Date & Time of Evaluation Date of Evaluation: 03/06/17 Time of Evaluation: 18:35 - Subjective Subjective: Pt is seen and evaluated today, pt underwent graft for AA repair, and now his Hb dropped his oxygen level was low and we will re acess his oxygen level tommorow, there is dressing in right inguinal area no complications on post op care Objective - Vital Signs/Intake and Output Vital Signs (last 24 hours): Temp Pulse Resp BP Pulse Ox 98.2 F 65 20 115/60 98 03/06/17 18:02 03/06/17 18:02 03/06/17 18:02 03/06/17 20:24 03/06/17 15:14 Intake and Output: 03/06/17 03/07/17 18:59 06:59 Intake Total 1375 Output Total 750 Balance 625 - Medications Medications: Current Medications Albuterol/Ipratropium (Duoneb 3 Mg/0.5 Mg (3 Ml) Ud) 3 ml INH RQ2 PRN PRN Reason: Shortness of Breath Last Admin: 03/06/17 13:16 Dose: 3 ml Artificial Tears (Artificial Tears) 0 ml OU Q6H PRN PRN Reason: DRY EYE Last Admin: 03/06/17 10:40 Dose: 1 drop Aspirin (Ecotrin) 81 mg PO DAILY [facility] Last Admin: 03/06/17 10:39 Dose: 81 mg Enoxaparin Sodium (Lovenox) 30 mg SC DAILY [facility] Last Admin: 03/06/17 10:41 Dose: Not Given Fluoxetine HCl (Prozac) 20 mg PO DAILY [facility] Last Admin: 03/06/17 10:40 Dose: 20 mg Gabapentin (Neurontin) 300 mg PO TID [facility] Last Admin: 03/06/17 18:04 Dose: 300 mg Hydromorphone HCl (Dilaudid) 0.5 mg IVP Q4H PRN PRN Reason: Pain, severe (8-10) Lactated Ringer's (Lactated Ringer's) 1,000 mls @ 100 mls/hr IV .Q10H [facility] Last Admin: 03/06/17 21:26 Dose: 100 mls/hr Lisinopril (Zestril) 5 mg PO DAILY [facility] Metoprolol Tartrate (Lopressor) 25 mg PO BID [facility] Last Admin: 01/24/18 18:04 Dose: 25 mg Oxycodone/Acetaminophen (Percocet 5/325 Mg Tab) 2 tab PO Q4H PRN PRN Reason: Pain, moderate (4-7) Stop: 03/07/17 14:49 Pantoprazole Sodium (Protonix Ec Tab) 20 mg PO DAILY [facility] Last Admin: 03/06/17 10:40 Dose: 20 mg Rosuvastatin Calcium (Crestor) 5 mg PO HS [facility] Last Admin: 03/06/17 21:25 Dose: 5 mg - Labs Labs: 03/06/17 07:36 03/05/17 06:27 PT 11.9 SECONDS (9.7-12.2) 03/01/17 10:34 INR 1.0 03/01/17 10:34 APTT 31 SECONDS (21-34) 03/01/17 10:34 - Constitutional Appears: No Acute Distress - Head Exam Head Exam: ATRAUMATIC, NORMAL INSPECTION, NORMOCEPHALIC - Eye Exam Eye Exam: EOMI, Normal appearance, PERRL Pupil Exam: NORMAL ACCOMODATION, PERRL - Respiratory Exam Respiratory Exam: Clear to Ausculation Bilateral, NORMAL BREATHING PATTERN - Cardiovascular Exam Cardiovascular Exam: REGULAR RHYTHM, +S1, +S2. absent: Murmur - GI/Abdominal Exam GI & Abdominal Exam: Soft, Normal Bowel Sounds. absent: Tenderness Assessment and Plan (1) HTN (hypertension) Status: Acute (2) Hyperlipemia Status: Acute (3) Abdominal pain Status: Acute (4) Endoleak post endovascular aneurysm repair Status: Acute (5) Hypoxia Status: Acute (6) Anemia Status: Acute
[2017-03-07] MEDS: Albuterol-Ipratrop 3 mg / 0.5 (3 ml) UD INH PRN (01:13)
[2017-03-07 06:36] LABS: BASO # 0.1 K/uL (0.0-0.2); BASO % 0.7 % (0.0-2.0); EOS # 0.2 K/uL (0.0-0.7); EOS % 2.4 % (0.0-4.0); HEMOGLOBIN 8.2 g/dL (12.0-18.0); LYMPH # 1.2 K/uL (1.0-4.3); LYMPH % 15.9 % (20.0-40.0); MEAN CELL VOLUME 94.6 fL (80.0-94.0); MEAN CORPUSCULAR HEMOGLOBIN 33.3 pg (27.0-31.0); MEAN CORPUSCULAR HGB CONC 35.2 g/dL (33.0-37.0); MEAN PLATELET VOLUME 8.4 fL (7.2-11.7); MONO # 0.8 K/uL (0.0-0.8); MONO % 10.9 % (0.0-10.0); NEUT # 5.4 K/uL (1.8-7.0); NEUT % 70.1 % (50.0-75.0); NRBC % 0.1 % (0.0-2.0); RBC 2.46 Mil/uL (4.40-5.90); RED CELL DISTRIBUTION WIDTH 14.1 % (11.5-14.5); WHITE BLOOD COUNT 7.8 K/uL (4.8-10.8)
[2017-03-07 06:39] LABS: CALCIUM 8.6 mg/dl (8.6-10.4)
--- NOTE | 2017-03-07 08:35 | CP.PCM.PN ---
Subjective - Date & Time of Evaluation Date of Evaluation: 03/07/17 Time of Evaluation: 18:00 - Subjective Subjective: Pt seen and evaluate dtoday Objective - Vital Signs/Intake and Output Vital Signs (last 24 hours): Temp Pulse Resp BP Pulse Ox 97.9 F 77 20 136/67 97 03/07/17 07:17 03/07/17 08:00 03/07/17 07:17 03/07/17 07:17 03/07/17 07:17 Intake and Output: 03/07/17 03/07/17 06:59 18:59 Output Total 400 Balance -400 - Medications Medications: Current Medications Albuterol/Ipratropium (Duoneb 3 Mg/0.5 Mg (3 Ml) Ud) 3 ml INH RQ2 PRN PRN Reason: Shortness of Breath Last Admin: 03/07/17 01:13 Dose: 3 ml Artificial Tears (Artificial Tears) 0 ml OU Q6H PRN PRN Reason: DRY EYE Last Admin: 03/06/17 10:40 Dose: 1 drop Aspirin (Ecotrin) 81 mg PO DAILY [facility] Last Admin: 03/06/17 10:39 Dose: 81 mg Enoxaparin Sodium (Lovenox) 30 mg SC DAILY [facility] Last Admin: 03/06/17 10:41 Dose: Not Given Fluoxetine HCl (Prozac) 20 mg PO DAILY [facility] Last Admin: 03/06/17 10:40 Dose: 20 mg Gabapentin (Neurontin) 300 mg PO TID [facility] Last Admin: 03/06/17 18:04 Dose: 300 mg Hydromorphone HCl (Dilaudid) 0.5 mg IVP Q4H PRN PRN Reason: Pain, severe (8-10) Lisinopril (Zestril) 5 mg PO DAILY [facility] Metoprolol Tartrate (Lopressor) 25 mg PO BID [facility] Last Admin: 03/06/17 18:04 Dose: 25 mg Oxycodone/Acetaminophen (Percocet 5/325 Mg Tab) 2 tab PO Q4H PRN PRN Reason: Pain, moderate (4-7) Stop: 03/07/17 14:49 Pantoprazole Sodium (Protonix Ec Tab) 20 mg PO DAILY [facility] Last Admin: 03/06/17 10:40 Dose: 20 mg Rosuvastatin Calcium (Crestor) 5 mg PO HS [facility] Last Admin: 03/06/17 21:25 Dose: 5 mg - Labs Labs: 03/07/17 06:20 03/07/17 06:20 PT 11.9 SECONDS (9.7-12.2) 03/01/17 10:34 INR 1.0 03/01/17 10:34 APTT 31 SECONDS (21-34) 03/01/17 10:34 Assessment and Plan (1) HTN (hypertension) Status: Acute (2) Hyperlipemia Status: Acute (3) Abdominal pain Status: Acute (4) Endoleak post endovascular aneurysm repair Status: Acute (5) Hypoxia Status: Acute (6) Anemia Status: Acute
--- NOTE | 2017-03-07 09:23 | RAD ---
Chest x-ray two views History: COPD. Comparison: None available. Findings: Moderate venous congestion. Right hilar prominence. Left basilar airspace opacity with small left pleural effusion. Enlarged ectatic aorta. Status post median sternotomy and CABG. Degenerative changes in the spine and shoulders. Impression: Moderate venous congestion. Right hilar prominence. Left basilar airspace opacity with small left pleural effusion. Enlarged ectatic aorta.
[2017-03-07] MEDS: Enoxaparin 30 mg Syringe SC SCH (10:52)
[2017-03-07] MEDS: Pantoprazole 20 mg EC Tab PO SCH (10:52)
[2017-03-07 12:23] LABS: IRON 14 ug/dL (49-181)
[2017-03-07 12:32] LABS: TOTAL IRON BINDING CAPACITY 261 ug/dL (250-450)
[2017-03-07 12:55] LABS: % IRON SATURATION 5 (20-55)
[2017-03-07 14:26] VITALS: BP 155/72; PULSE 100; TEMP 98; O2SAT 92
--- NOTE | 2017-03-07 16:54 | CP.PCM.PN ---
Subjective - Date & Time of Evaluation Date of Evaluation: 03/07/17 Time of Evaluation: 11:30 - Subjective Subjective: Pt seen today, sob improved , denies any chest pain,abdominal pain, N/V/D, wants to go honey e s/p I UNIT OF PRBC transfusion hgb - improved after transfusion - 8.3>7.8 spo2 on room air - 94% s/p endograft repair of L iliac A stent. POD # 4 Objective - Vital Signs/Intake and Output Vital Signs (last 24 hours): Temp Pulse Resp BP Pulse Ox 98 F 100 H 20 155/72 H 92 L 03/07/17 14:25 03/07/17 14:25 03/07/17 14:25 03/07/17 14:29 03/07/17 14:25 Intake and Output: 03/07/17 03/07/17 06:59 18:59 Intake Total 150 Output Total 400 Balance -400 150 - Labs Labs: 03/07/17 06:20 03/07/17 06:20 PT 11.9 SECONDS (9.7-12.2) 03/01/17 10:34 INR 1.0 03/01/17 10:34 APTT 31 SECONDS (21-34) 03/01/17 10:34 - Constitutional Appears: Well, No Acute Distress - Cardiovascular Exam Cardiovascular Exam: +S1, +S2, Murmur - Neurological Exam Neurological Exam: Alert, Awake, Oriented x3 Assessment and Plan (1) Endoleak post endovascular aneurysm repair Status: Acute (2) Hypertension Status: Chronic (3) Systolic heart failure, chronic Status: Chronic - Assessment and Plan (Free Text) Assessment: A/P 86 yr old male with pmhx of biprostetic valve , Chronic systolic HF admitted for abdominal pain s/p endograft repair of L iliac A stent. POD # 4 s/p I UNIT OF PRBC transfusion hgb - improved after transfusion - 8.3>7.8 spo2 on room air - 94% Dr.Mc harvey cleared for discharge from surgical standpoint and f/u in his office in 2 weeks d/w Dr. moreno, stable for discharge today and f/u with Dr. Moreno office in 1 week D/W Dr. Saha, f/u with is office in 1 month Discharge plan discussed with patient who understands and agrees with plan Patient instructed to returns to ED if symptoms returns
--- NOTE | 2017-03-07 17:37 | PCM.HF ---
Heart Failure Core Measure - Heart Failure Ejection Fraction: Less Than 40 % NAYANA Inhibitor Prescribed: Yes Beta-Stiven Prescribed: Metoprolol Succinate Angiotensin II Receptor Stiven Prescribed: No Contraindication/Reason for not providing: no arb AnticoagulationTherapy for Atrial Fibrillation/Atrialflutter: No Contraindication/Reason for not providing: hx of bleeding Aldosterone Antagonist Prescribed: No Contraindication/Reason for not providing: CKD Hydralazine Nitrate Prescribed: No Contraindication/Reason for not providing: bp running low Implantable Cardioverter Defibrillator Therapy: No Contraindication/Reason for not providing: medical therapy as per cardio Contraindication/Reason for not providing: medical therapy as per cardio - Follow up Will be discharged to: Home Follow Up Date (must be within 7 days from discharge): 03/13/17 Follow Up Time: 09:00
--- NOTE | 2017-04-09 10:13 | DS ---
CHIEF COMPLAINT: Left upper quadrant abdominal pain. HOSPITAL COURSE: This is an 86-year-old white male with history of AAA repair, hypertension, hyperlipidemia, CHF, compliant with diet, medication and followup. He came to emergency room with left lower lateral abdominal pain that started a month ago. He was found to have a leaking repair site at the site of his prior AAA aneurysm on the left lower quadrant. It was endovascularly after aneurysm repair and a surgical consult with Dr. Pennington was obtained and the patient underwent surgery and his repair of the leak was fixed. Blood pressure 155/72, pulse 100, respiratory rate 20, temperature 98. LABS: WBC 7.8, hemoglobin 8.2, hematocrit 23.3, platelets 114,000. Sodium 134, potassium 4.8, chloride 102, bicarb 26, BUN 44, creatinine 1.8. LFTs essentially benign. The patient improved. He stabilized. His breathing improved. His cultures were negative. His chest x-ray showed COPD, chronic cardiomegaly and he was stabilized and discharged. His aortic arch was big. He also had tiny pleural effusion on the left side. He was discharged with outpatient followup. 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 Marshall Moreno MD
== END 2017-03-07 14:52 | disposition home health service (06) | DRG 271 ==
LOC: C.ER 09:01 → C.9E 16:05 → C.3T 17:58 → C.9I 03-04 20:07 → C.6T 03-05 18:10
PROVIDERS: ADMIT Internal Medicine; ATTEND Internal Medicine
PROC: 04Q Lower Arteries, Repair (ICD-10-PCS; 2017-03-04)
PROC: 04V Lower Arteries, Restriction (ICD-10-PCS; principal; 2017-03-04 13:00)
DX: T82.330A Leakage of aortic (bifurcation) graft (replacement), initial encounter (principal); I50.22 Chronic systolic (congestive) heart failure; I13.0 Hypertensive heart and chronic kidney disease with heart failure and stage 1 through stage 4 chronic kidney disease, or unspecified chronic kidney disease; I48.91 Unspecified atrial fibrillation; R09.02 Hypoxemia; J43.9 Emphysema, unspecified; K27.9 Peptic ulcer, site unspecified, unspecified as acute or chronic, without hemorrhage or perforation; Y83.2 Surgical operation with anastomosis, bypass or graft as the cause of abnormal reaction of the patient, or of later complication, without mention of misadventure at the time of the procedure; I71.4 Abdominal aortic aneurysm, without rupture; D64.9 Anemia, unspecified; N18.9 Chronic kidney disease, unspecified; I25.10 Atherosclerotic heart disease of native coronary artery without angina pectoris; E78.5 Hyperlipidemia, unspecified; Z95.1 Presence of aortocoronary bypass graft; Z86.79 Personal history of other diseases of the circulatory system; K21.9 Gastro-esophageal reflux disease without esophagitis; I34.1 Nonrheumatic mitral (valve) prolapse; Z95.2 Presence of prosthetic heart valve; Z95.5 Presence of coronary angioplasty implant and graft; Z90.49 Acquired absence of other specified parts of digestive tract; Z87.891 Personal history of nicotine dependence; Z87.442 Personal history of urinary calculi; Z91.14 Patient's other noncompliance with medication regimen

== ENCOUNTER 2017-03-12 12:33 | Inpatient (IN) | payer MEDICARE ==
[2017-03-12 12:42] VITALS: BMI 27.3
--- NOTE | 2017-03-12 13:49 | C.PDOC ---
History Of Present Illness 86yo male with history of hypertension, hyperlipidemia, CHF and recent endovascular repair of his left iliac artery, presents to ED with complaints of worsening shortness of breath, associated with a mild non-productive cough. Patient denies any chest pain, weakness, abdominal pain, fever or chills. No other medical complaints. Time Seen by Provider: 03/12/17 13:29 Chief Complaint (Nursing): Shortness Of Breath History Per: Patient History/Exam Limitations: no limitations Onset/Duration Of Symptoms: Persistent Current Symptoms Are (Timing): Worse Associated Symptoms: denies: Fever, Chills, Chest Pain Past Medical History Reviewed: Historical Data, Nursing Documentation, Vital Signs Vital Signs: Last Vital Signs Temp 100.2 F H 03/12/17 14:41 Pulse 95 H 03/12/17 19:23 Resp 24 03/12/17 19:23 BP 128/64 03/12/17 19:23 Pulse Ox 92 L 03/12/17 19:43 - Medical History PMH: Anemia, Arthritis, CAD, Cardia Arrhythmia (A FIB), CHF, COPD, Emphysema, Gall Bladder Disease (CHOLECYSTECTOMY), HTN, Kidney Stones, Chronic Kidney Disease (RENAL INSUFFICIENCY) Surgical History: CABG, Cholecystectomy, Coronary Stent, Endoscopy - [facility] Procedures CORONAR ARTERIOGR-2 CATH (12/07/13) LEFT HEART CARDIAC CATH (12/07/13) LT HEART ANGIOCARDIOGRAM (12/07/13) REPAIR LEFT COMMON ILIAC ARTERY, PERCUTANEOUS APPROACH (03/01/17) RESTRICT L COM ILIAC ART W FENESTR DEV 1 OR 2, PERC (03/01/17) Family History: States: No Known Family Hx - Social History Hx Tobacco Use: No Hx Alcohol Use: No Hx Substance Use: No - Immunization History Hx Tetanus Toxoid Vaccination: No Hx Influenza Vaccination: No Hx Pneumococcal Vaccination: No Review Of Systems Except As Marked, All Systems Reviewed And Found Negative. Constitutional: Negative for: Fever, Chills Cardiovascular: Negative for: Chest Pain Respiratory: Positive for: Cough (mild), Shortness of Breath. Negative for: Sputum Gastrointestinal: Negative for: Abdominal Pain Neurological: Negative for: Weakness Physical Exam - Physical Exam Appears: Non-toxic Skin: Normal Color, Warm, Dry Eye(s): bilateral: Normal Inspection Neck: Normal ROM, Supple Cardiovascular: Rhythm Regular Respiratory: Other (crackles at bases of lungs) Gastrointestinal/Abdominal: Normal Exam, Soft, No Tenderness Back: Normal Inspection Extremity: Normal ROM, No Pedal Edema Neurological/Psych: Oriented x3, Normal Speech, Normal Cognition ED Course And Treatment - Laboratory Results Result Diagrams: 03/12/17 14:30 03/12/17 14:30 ECG: Interpreted By Me, Viewed By Me ECG Rhythm: Atrial Fibrillation, PVC Rate From EC O2 Sat by Pulse Oximetry: 92 Medical Decision Making Medical Decision Making: Impression: SOB in setting of history of CHF ro pna, pe Plan: -- Labs -- CXR -- EKG -- Rapid flu case discussed with dr morrison, dr randle, dr moreno, all agree for empirc lovenox, vq neg. dr moreno accepts tele. Disposition - Disposition Disposition: HOSPITALIZED Disposition Time: 04:00 Condition: FAIR - Clinical Impression Clinical Impression: CHF (congestive heart failure), Atrial fibrillation, Pneumonia, NSTEMI (non-ST elevated myocardial infarction) - Scribe Statement The provider has reviewed the documentation as recorded by the Scribe (Janeth Dangelo) Provider Attestation: All medical record entries made by the Scribe were at my direction and personally dictated by me. I have reviewed the chart and agree that the record accurately reflects my personal performance of the history, physical exam, medical decision making, and the department course for this patient. I have also personally directed, reviewed, and agree with the discharge instructions and disposition. Decision To Admit - Pt Status Changed To: Hospital Disposition Of: Inpatient - Admit Certification Admit to Inpatient:: After my assessment, the patient will require hospitalization for at least two midnights. This is because of the severity of symptoms shown, intensity of services needed, and/or the medical risk in this patient being treated as an outpatient. - InPatient: Physician Admission Certification: I certify that this patient requires 2 or more midnights of care for the following reason:: needs iv antibioics diuresis and anticoagulation - . Bed Request Type: Telemetry Admitting Physician: Marshall Moreno Patient Diagnosis: CHF (congestive heart failure), Atrial fibrillation, Pneumonia, NSTEMI (non-ST elevated myocardial infarction)
[2017-03-12] MEDS ORDERED: Piperacillin/Tazobact 3.375 gm 100 ML IVPB STA (14:29)
[2017-03-12 14:37] LABS: BASO # 0.1 K/uL (0.0-0.2); BASO % 0.3 % (0.0-2.0); EOS % 0.2 % (0.0-4.0); HEMOGLOBIN 8.9 g/dL (12.0-18.0); LYMPH # 1.1 K/uL (1.0-4.3); LYMPH % 7.4 % (20.0-40.0); MEAN CELL VOLUME 94.1 fL (80.0-94.0); MEAN CORPUSCULAR HEMOGLOBIN 32.1 pg (27.0-31.0); MEAN CORPUSCULAR HGB CONC 34.1 g/dL (33.0-37.0); MEAN PLATELET VOLUME 7.9 fL (7.2-11.7); MONO # 1.3 K/uL (0.0-0.8); MONO % 8.6 % (0.0-10.0); NEUT # 12.6 K/uL (1.8-7.0); NEUT % 83.5 % (50.0-75.0); PLATELET COUNT 204 K/uL (130-400); RBC 2.76 Mil/uL (4.40-5.90); RED CELL DISTRIBUTION WIDTH 13.2 % (11.5-14.5); WHITE BLOOD COUNT 15.1 K/uL (4.8-10.8)
[2017-03-12] MEDS ORDERED: Enoxaparin 150 mg Syringe SC STA ×2 (14:50→17:09)
[2017-03-12 14:53] LABS: INR 1.4; PROTHROMBIN TIME 16.4 SECONDS (9.7-12.2)
[2017-03-12 14:57] LABS: ALB/GLOB RATIO 1.1 (1.0-2.1); ALBUMIN 3.7 g/dL (3.5-5.0); CALCIUM 8.9 mg/dl (8.6-10.4)
[2017-03-12] MEDS ORDERED: Vancomycin 1 gm/NS 200 ml 1 GM/200 ML BAG IVPB STA (15:00)
[2017-03-12 15:19] LABS: SQUAMOUS EPITHIAL < 1 /hpf (0-5); URINE BACTERIA OCC (<OCC); URINE BILIRUBIN NEGATIVE (NEGATIVE); URINE BLOOD 2+ (NEGATIVE); URINE CLARITY Hazy (Clear); URINE COLOR Yellow (YELLOW); URINE GLUCOSE (UA) NORMAL (Normal); URINE LEUKOCYTE ESTERASE 2+ Leu/uL (Negative); URINE NITRATE NEGATIVE (NEGATIVE); URINE PROTEIN 2+ mg/dL (NEGATIVE); URINE UROBILINOGEN NORMAL mg/dL (0.2-1.0)
[2017-03-12] MEDS ORDERED: Enoxaparin 80 mg Syringe ONE ×2 (15:19→17:13)
--- NOTE | 2017-03-12 15:36 | RAD ---
PROCEDURE: CHEST RADIOGRAPH, 1 VIEW HISTORY: chest pain COMPARISON: 03/06/2017 and 08/29/2016 FINDINGS: LUNGS: No interval consolidation. PLEURA: No pneumothorax. Chronic left inferolateral pleural thickening - with or without minimal left pleural effusion not significantly changed. Since 2017 CARDIOVASCULAR: Cardiomegaly tortuous thoracic aorta. Midline sternotomy and coronary artery bypass surgery -all similar Mild -moderate pulmonary venous congestion similar OSSEOUS STRUCTURES: No significant abnormalities. VISUALIZED UPPER ABDOMEN: Normal. OTHER FINDINGS: None. IMPRESSION: Chronic changes as above. No interval pathology noted
[2017-03-12 15:39] LABS: TROPONIN I 0.225 ng/mL (0.00-0.120)
[2017-03-12 15:41] LABS: BANDS 3 % (0-2); LYMPHOCYTE 9 % (20-40); MONOCYTE 9 % (0-10); NEUTROPHIL 79 % (50-75); TOTAL CELLS COUNTED 100
[2017-03-12 15:42] LABS: ANISOCYTOSIS SLIGHT; HYPOCHROMIC SLIGHT; OVALOCYTES SLIGHT; PLATELET ESTIMATE NORMAL (NORMAL); POIKILOCYTOSIS SLIGHT
[2017-03-12 21:01] LABS: CK-MB 1.21 ng/mL (0.0-3.38); TROPONIN I 0.212 ng/mL (0.00-0.120)
[2017-03-12] MEDS ORDERED: MethylPREDNISolone 40 mg Vial ONE (22:05)
[2017-03-12] MEDS: MethylPREDNISolone 40 mg Vial IVP SCH (22:06)
[2017-03-12] MEDS ORDERED: Albuterol-Ipratrop 3 mg / 0.5 (3 ml) UD ONE (22:12)
[2017-03-12] MEDS: Albuterol-Ipratrop 3 mg / 0.5 (3 ml) UD INH SCH (22:15)
--- NOTE | 2017-03-12 23:57 | CP.PCM.HP ---
History of Present Illness - History of Present Illness History of Present Illness: Chief Complaint : Shortness Of Breath HPI: 86yo white male with history of hypertension, hyperlipidemia, CHF and recent endovascular repair of his left iliac artery, pt went home and didnot feel better so he presents to ED with complaints of worsening shortness of breath, associated with a mild non-productive cough. Patient denies any chest pain, weakness, abdominal pain, fever or chills. No other medical complaints. Present on Admission - Present on Admission Any Indicators Present on Admission: Yes Review of Systems - Review of Systems Systems not reviewed;Unavailable: Acuity of Condition - Constitutional Constitutional: Fatigue, Lethargy - EENT Eyes: absent: As Per HPI, Blind Spots, Blurred Vision, Change in Vision, Decreased Night Vision, Diplopia, Discharge, Dry Eye, Exophthalmos, Floaters, Irritation, Itchy Eyes, Loss of Peripheral Vision, Pain, Photophobia, Requires Corrective Lenses, Sees Flashes, Spots in Vision, Tunnel Vision, Other Visual Disturbances, Loss of Vision, Other Nose/Mouth/Throat: Nasal Congestion - Cardiovascular Cardiovascular: Dyspnea, Dyspnea on Exertion. absent: As Per HPI, Acrocyanosis , Chest Pain, Chest Pain at Rest, Chest Pain with Activity, Claudication, Diaphoresis, Edema, Irregular Heart Rhythm, Pain Radiating to Arm/Neck/Jaw, Leg Edema, Leg Ulcers, Lightheadedness, Orthopnea, Palpitations, Paroxysmal Nocturnal Dyspnea, Pedal Edema, Radiating Pain, Rapid Heart Rate, Slow Heart Rate, Syncope, Other - Respiratory Respiratory: Cough, Wheezing, Chest Congestion - Gastrointestinal Gastrointestinal: absent: As Per HPI, Abdominal Pain, Belching, Bloating, Change in Bowel Habits, Change in Stool Character, Coffee Ground Emesis, Constipation, Cramping, Diarrhea, Dyspepsia, Dysphagia, Early Satiety, Excessive Flatus, Fecal Incontinence, Heartburn, Hematemesis, Hematochezia, Loose Stools, Melena, Nausea, Odynophagia, Temesmus, Vomiting, Other - Genitourinary Genitourinary: absent: As Per HPI, Change in Urinary Stream, Difficulty Urinating, Dysuria, Flank Pain, Hematuria, Pyuria, Nocturia, Urinary Incontinence, Urinary Frequency, Urinary Hesitance, Urinary Urgency, Voiding Freq/Small Amts, Freq UTI, Hx Renal/Bladder Calculi, Hx /Renal Surgery, Bladder Distension, Other Past Patient History - Infectious Disease Hx of Infectious Diseases: None - Past Medical History & Family History Past Medical History?: Yes - Past Social History Smoking Status: Never Smoked - CARDIAC Hx Cardia Arrhythmia: Yes (A FIB) Hx Congestive Heart Failure: Yes Hx Hypertension: Yes - PULMONARY Hx Chronic Obstructive Pulmonary Disease (COPD): Yes Hx Emphysema: Yes - NEUROLOGICAL Hx Neurological Disorder: Yes Hx Dizziness: Yes - HEENT Hx HEENT Problems: Yes Hx Cataracts: Yes (BILAT IOL) - RENAL Hx Chronic Kidney Disease: Yes (RENAL INSUFFICIENCY) Hx Kidney Stones: Yes - ENDOCRINE/METABOLIC Hx Endocrine Disorders: No - HEMATOLOGICAL/ONCOLOGICAL Hx Anemia: Yes - INTEGUMENTARY Hx Dermatological Problems: No - MUSCULOSKELETAL/RHEUMATOLOGICAL Hx Arthritis: Yes - GASTROINTESTINAL Hx Gall Bladder Disease: Yes (CHOLECYSTECTOMY) - GENITOURINARY/GYNECOLOGICAL Hx Genitourinary Disorders: Yes Hx Prostate Problems: Yes Other/Comment: colon removed - PSYCHIATRIC Hx Substance Use: No - SURGICAL HISTORY Hx Cholecystectomy: Yes Hx Coronary Artery Bypass Graft: Yes Hx Coronary Stent: Yes - ANESTHESIA Hx Anesthesia: Yes Hx Anesthesia Reactions: No Hx Malignant Hyperthermia: No Meds Allergies/Adverse Reactions: Allergies Allergy/AdvReac Type Severity Reaction Status Date / Time moxifloxacin [From Avelox] Allergy Intermediate Verified 03/12/17 12:41 Physical Exam - Constitutional Appears: No Acute Distress - Head Exam Head Exam: ATRAUMATIC, NORMAL INSPECTION, NORMOCEPHALIC - Eye Exam Eye Exam: EOMI, Normal appearance, PERRL Pupil Exam: NORMAL ACCOMODATION, PERRL - ENT Exam ENT Exam: Mucous Membranes Moist, Normal Exam - Respiratory Exam Respiratory Exam: Decreased Breath Sounds, Rales, Rhonchi - Cardiovascular Exam Cardiovascular Exam: REGULAR RHYTHM - GI/Abdominal Exam GI & Abdominal Exam: Normal Bowel Sounds, Soft. absent: Tenderness Results - Vital Signs Recent Vital Signs: Last Vital Signs Temp 100.2 F H 03/12/17 14:41 Pulse 84 03/12/17 23:55 Resp 20 03/12/17 23:55 BP 131/67 03/12/17 23:55 Pulse Ox 96 03/12/17 23:55 - Labs Result Diagrams: 03/12/17 14:30 03/12/17 14:30 Labs: Laboratory Results - last 24 hr 03/12/17 03/12/17 03/12/17 14:30 14:30 14:30 WBC 15.1 H D RBC 2.76 L Hgb 8.9 L Hct 26.0 L MCV 94.1 H MCH 32.1 H MCHC 34.1 RDW 13.2 Plt Count 204 MPV 7.9 Neut % (Auto) 83.5 H Lymph % (Auto) 7.4 L Bates % (Auto) 8.6 Eos % (Auto) 0.2 Baso % (Auto) 0.3 Neut # 12.6 H Lymph # 1.1 Bates # 1.3 H Eos # 0.0 Baso # 0.1 Neutrophils % (Manual) 79 H Band Neutrophils % 3 H Lymphocytes % (Manual) 9 L Monocytes % (Manual) 9 Platelet Estimate Normal Hypochromasia (manual) Slight Poikilocytosis (manual Slight Anisocytosis (manual) Slight Ovalocytes Slight PT 16.4 H INR 1.4 APTT 27 D-Dimer, Quantitative 3570 H Sodium 135 Potassium 3.9 Chloride 100 Carbon Dioxide 26 Anion Gap 12 BUN 29 H Creatinine 1.6 H Est GFR ( Amer) 50 Est GFR (Non-Af Amer) 41 Random Glucose 116 H Calcium 8.9 Total Bilirubin 1.1 AST 19 ALT 19 L Alkaline Phosphatase 55 Troponin I 0.2250 H* Total Creatine Kinase CK-MB (Mass) NT-Pro-B Natriuret Pep 83797 H Total Protein 7.2 Albumin 3.7 Globulin 3.4 Albumin/Globulin Ratio 1.1 Urine Color Urine Clarity Urine pH Ur Specific [place] Urine Protein Urine Glucose (UA) Urine Ketones Urine Blood Urine Nitrate Urine Bilirubin Urine Urobilinogen Ur Leukocyte Esterase Urine WBC (Auto) Urine RBC (Auto) Ur Squamous Epith Cells Urine Bacteria Influenza Typ A,B (EIA) 03/12/17 03/12/17 03/12/17 14:35 15:05 20:22 WBC RBC Hgb Hct MCV MCH MCHC RDW Plt Count MPV Neut % (Auto) Lymph % (Auto) Bates % (Auto) Eos % (Auto) Baso % (Auto) Neut # Lymph # Bates # Eos # Baso # Neutrophils % (Manual) Band Neutrophils % Lymphocytes % (Manual) Monocytes % (Manual) Platelet Estimate Hypochromasia (manual) Poikilocytosis (manual Anisocytosis (manual) Ovalocytes PT INR APTT D-Dimer, Quantitative Sodium Potassium Chloride Carbon Dioxide Anion Gap BUN Creatinine Est GFR ( Amer) Est GFR (Non-Af Amer) Random Glucose Calcium Total Bilirubin AST ALT Alkaline Phosphatase Troponin I 0.2120 H* Total Creatine Kinase 54 L CK-MB (Mass) 1.21 NT-Pro-B Natriuret Pep Total Protein Albumin Globulin Albumin/Globulin Ratio Urine Color Yellow Urine Clarity Hazy Urine pH 5.0 Ur Specific [place] 1.017 Urine Protein 2+ H Urine Glucose (UA) Normal Urine Ketones Negative Urine Blood 2+ H Urine Nitrate Negative Urine Bilirubin Negative Urine Urobilinogen Normal Ur Leukocyte Esterase 2+ H Urine WBC (Auto) 78 H Urine RBC (Auto) 21 H Ur Squamous Epith Cells < 1 Urine Bacteria Occ H Influenza Typ A,B (EIA) Negative for flu a/b Assessment & Plan (1) CHF (congestive heart failure) Status: Acute (2) Pneumonia Status: Acute (3) Anemia Status: Acute (4) Dyspnea Status: Acute (5) Endoleak post endovascular aneurysm repair Status: Acute
[2017-03-13] MEDS: Piperacillin/Tazobact 3.375 gm 100 ML IVPB SCH ×2 (01:30→05:52)
[2017-03-13 03:38] LABS: CK-MB 1.3 ng/mL (0.0-3.38)
[2017-03-13 03:50] LABS: TROPONIN I 0.188 ng/mL (0.00-0.120)
[2017-03-13] MEDS ORDERED: MethylPREDNISolone 40 mg Vial ONE (05:32)
[2017-03-13] MEDS: MethylPREDNISolone 40 mg Vial IVP SCH ×2 (05:52→14:34)
[2017-03-13] MEDS ORDERED: Albuterol-Ipratrop 3 mg / 0.5 (3 ml) UD ONE (08:00)
[2017-03-13 09:10] LABS: CK-MB 1.67 ng/mL (0.0-3.38); TROPONIN I 0.135 ng/mL (0.00-0.120)
[2017-03-13] MEDS: Albuterol-Ipratrop 3 mg / 0.5 (3 ml) UD INH SCH ×3 (09:13→19:47)
[2017-03-13] MEDS ORDERED: Enoxaparin 40 mg Syringe SC SCH (10:00)
[2017-03-13] MEDS ORDERED: raNITIdine HCl 150 mg/10 ml Soln Cup PO SCH (10:00)
[2017-03-13] MEDS: Vancomycin 1 gm/NS 200 ml 1 GM/200 ML BAG IVPB SCH (10:08)
[2017-03-13] MEDS: Metoprolol Succinate 12.5 mg XL PO SCH (10:55)
--- NOTE | 2017-03-13 13:24 | NM ---
COMPARISON: March 12, 2017. Single-view chest Relevant clinical history: Dyspnea, shortness of breath elevated D-dimer TECHNIQUE: 11.5 mCi technetium 99-m Xe-133 Gas. 4.0 mCI technetium 99-m MAA administered intravenously. FINDINGS: VENTILATION COMPONENT: Heterogeneous distribution of radionuclide with retention in particular in the left lung/ left lower lobe. PERFUSION COMPONENT: Heterogeneous distribution of radionuclide. No geographic, segmental, lobar abnormalities apparent on the present examination. IMPRESSION: Low probability ventilation perfusion scan for pulmonary embolism. Concordant results (preliminary interpretation) provided by [facility]. Procedure Completed: 16:06 Preliminary ([facility]) Report: Dictated and Authenticated: 16:40 Final Interpretation: 13:22 [email or web address] [email or web address].
[2017-03-13] MEDS: Piperacill/Tazo 3.375gm in Dex 3.375 GM/50 ML BAG IVPB SCH ×2 (14:33→22:01)
[2017-03-13] MEDS ORDERED: Piperacillin/Tazobact 3.375 GM in Sodium Chloride 100 ML IVPB SCH (15:00)
[2017-03-13] MEDS: Aritificial Tears (15ml) OU SCH (18:25)
--- NOTE | 2017-03-13 23:37 | CP.PCM.PN ---
Subjective - Date & Time of Evaluation Date of Evaluation: 03/13/17 Time of Evaluation: 19:00 - Subjective Subjective: Pt seen and evaluated at bedside, is much better, less short of breath Objective - Vital Signs/Intake and Output Vital Signs (last 24 hours): Temp Pulse Resp BP Pulse Ox 97.3 F L 76 20 118/68 100 03/13/17 15:54 03/13/17 15:54 03/13/17 15:54 03/13/17 15:54 03/13/17 15:54 Intake and Output: 03/13/17 03/14/17 18:59 06:59 Intake Total 410 Output Total 400 Balance 10 - Medications Medications: Current Medications Albuterol/Ipratropium (Duoneb 3 Mg/0.5 Mg (3 Ml) Ud) 3 ml INH RQID [facility] Last Admin: 03/13/17 19:47 Dose: 3 ml Artificial Tears (Artificial Tears) 0 ml OU Q6 [facility] Last Admin: 03/13/17 18:25 Dose: 1 drop Aspirin (Ecotrin) 81 mg PO DAILY [facility] Last Admin: 03/13/17 10:56 Dose: 81 mg Enoxaparin Sodium (Lovenox) 40 mg SC DAILY [facility] Last Admin: 03/13/17 10:55 Dose: 40 mg Famotidine (Pepcid) 20 mg PO DAILY [facility] Ferrous Sulfate (Feosol) 325 mg PO DAILY [facility] Last Admin: 03/13/17 18:26 Dose: 325 mg Furosemide (Lasix) 40 mg IVP DAILY [facility] Last Admin: 03/13/17 10:56 Dose: 40 mg Vancomycin/Sodium Chloride (Vancomycin 1 Gm/Ns 200 Ml) 1 gm in 200 mls @ 133 mls/hr IVPB DAILY [facility] Stop: 03/18/17 10:01 Last Admin: 03/13/17 10:08 Dose: 133 mls/hr Piperacillin Sod/Tazobactam Sod (Zosyn 3.375 Gm Iv Premix) 3.375 gm in 50 mls @ 100 mls/hr IVPB Q8 [facility] Last Admin: 03/13/17 22:01 Dose: 100 mls/hr Lisinopril (Zestril) 5 mg PO DAILY [facility] Last Admin: 03/13/17 10:55 Dose: 5 mg Methylprednisolone (Solu-Medrol) 60 mg IVP Q8 [facility] Last Admin: 03/13/17 21:56 Dose: 60 mg Metoprolol Succinate (Toprol Xl) 12.5 mg PO DAILY [facility] Last Admin: 03/13/17 10:55 Dose: 12.5 mg - Labs Labs: 03/12/17 14:30 03/12/17 14:30 PT 16.4 SECONDS (9.7-12.2) H 03/12/17 14:30 INR 1.4 03/12/17 14:30 APTT 27 SECONDS (21-34) 03/12/17 14:30 - Constitutional Appears: No Acute Distress - Head Exam Head Exam: ATRAUMATIC, NORMAL INSPECTION, NORMOCEPHALIC - Eye Exam Eye Exam: EOMI, Normal appearance, PERRL Pupil Exam: NORMAL ACCOMODATION, PERRL - Respiratory Exam Respiratory Exam: Decreased Breath Sounds, Rales, Rhonchi - Cardiovascular Exam Cardiovascular Exam: REGULAR RHYTHM, +S1, +S2. absent: Murmur - GI/Abdominal Exam GI & Abdominal Exam: Soft, Normal Bowel Sounds. absent: Tenderness Assessment and Plan (1) CHF (congestive heart failure) Status: Acute (2) Pneumonia Status: Acute (3) Anemia Status: Acute (4) Dyspnea Status: Acute (5) Endoleak post endovascular aneurysm repair Status: Acute
[2017-03-14] MEDS: Aritificial Tears (15ml) OU SCH ×4 (00:45→17:42)
[2017-03-14] MEDS: Piperacill/Tazo 3.375gm in Dex 3.375 GM/50 ML BAG IVPB SCH (05:21)
[2017-03-14] MEDS ORDERED: Alum-Mag Hydrox-Simethicone Susp (30 mL) PO ONE (05:36)
[2017-03-14 07:41] LABS: IRON 74 ug/dL (49-181)
[2017-03-14] MEDS: Albuterol-Ipratrop 3 mg / 0.5 (3 ml) UD INH SCH ×4 (07:49→20:43)
[2017-03-14 07:51] LABS: % IRON SATURATION 31 (20-55); TOTAL IRON BINDING CAPACITY 238 ug/dL (250-450)
[2017-03-14] MEDS: Metoprolol Succinate 12.5 mg XL PO SCH (09:39)
[2017-03-14] MEDS: Vancomycin 1 gm/NS 200 ml 1 GM/200 ML BAG IVPB SCH (09:40)
[2017-03-14 10:29] LABS: CALCIUM 9.1 mg/dl (8.6-10.4); MAGNESIUM 1.5 mg/dL (1.6-2.3)
[2017-03-14 11:29] LABS: BASO % 0.1 % (0.0-2.0); LYMPH # 0.8 K/uL (1.0-4.3); LYMPH % 3.7 % (20.0-40.0); MEAN CELL VOLUME 93.2 fL (80.0-94.0); MEAN CORPUSCULAR HEMOGLOBIN 31.8 pg (27.0-31.0); MEAN CORPUSCULAR HGB CONC 34.1 g/dL (33.0-37.0); MEAN PLATELET VOLUME 8.6 fL (7.2-11.7); MONO # 0.5 K/uL (0.0-0.8); MONO % 2.7 % (0.0-10.0); NEUT % 93.5 % (50.0-75.0); PLATELET COUNT 286 K/uL (130-400); RBC 2.83 Mil/uL (4.40-5.90); RED CELL DISTRIBUTION WIDTH 13.6 % (11.5-14.5); WHITE BLOOD COUNT 20.3 K/uL (4.8-10.8)
[2017-03-14] MEDS: Magnesium Sulfate 1 gm in D5W 1 GM/100 ML BAG IVPB SCH ×2 (11:57→12:32)
[2017-03-14 12:08] LABS: BANDS 1 % (0-2); LYMPHOCYTE 1 % (20-40); MONOCYTE 2 % (0-10); NEUTROPHIL 96 % (50-75); PLATELET ESTIMATE NORMAL (NORMAL); TOTAL CELLS COUNTED 100
[2017-03-14 12:09] LABS: BURR CELLS SLIGHT; OVALOCYTES SLIGHT; POIKILOCYTOSIS SLIGHT
[2017-03-14] MEDS: Piperacill/Tazo 2.25gm in Dex 2.25 GM/50 ML BAG IVPB SCH ×2 (13:30→21:05)
[2017-03-14] MEDS: MethylPREDNISolone 40 mg Vial IVP SCH ×2 (14:48→21:03)
[2017-03-14] MEDS: Magnesium Chloride 64 mg ER Tab PO SCH (21:03)
--- NOTE | 2017-03-14 22:44 | CP.PCM.PN ---
Subjective - Date & Time of Evaluation Date of Evaluation: 03/14/17 Time of Evaluation: 19:50 - Subjective Subjective: pt is less coughing, less short of breath, on medical mangmet for COPD Objective - Vital Signs/Intake and Output Vital Signs (last 24 hours): Temp Pulse Resp BP Pulse Ox 97.2 F L 86 20 120/67 97 03/14/17 15:00 03/14/17 15:00 03/14/17 15:00 03/14/17 15:00 03/14/17 15:00 Intake and Output: 03/14/17 03/15/17 18:59 06:59 Intake Total 930 Output Total 400 Balance 530 - Medications Medications: Current Medications Albuterol/Ipratropium (Duoneb 3 Mg/0.5 Mg (3 Ml) Ud) 3 ml INH RQID [facility] Last Admin: 03/14/17 20:43 Dose: 3 ml Artificial Tears (Artificial Tears) 0 ml OU Q6 [facility] Last Admin: 03/14/17 17:42 Dose: 1 drop Aspirin (Ecotrin) 81 mg PO DAILY [facility] Last Admin: 03/14/17 09:40 Dose: 81 mg Clopidogrel Bisulfate (Plavix) 75 mg PO DAILY [facility] Last Admin: 03/14/17 17:42 Dose: 75 mg Famotidine (Pepcid) 20 mg PO DAILY [facility] Last Admin: 03/14/17 09:40 Dose: 20 mg Ferrous Sulfate (Feosol) 325 mg PO DAILY [facility] Last Admin: 03/14/17 09:39 Dose: 325 mg Furosemide (Lasix) 40 mg IVP DAILY [facility] Last Admin: 03/14/17 09:42 Dose: 40 mg Heparin Sodium (Porcine) (Heparin) 5,000 units SC Q12 [facility] Last Admin: 03/14/17 21:03 Dose: 5,000 units Piperacillin Sod/Tazobactam Sod (Zosyn 2.25 Gm Iv Premix) 2.25 gm in 50 mls @ 100 mls/hr IVPB Q8 [facility] Last Admin: 03/14/17 21:05 Dose: 100 mls/hr Lisinopril (Zestril) 5 mg PO DAILY [facility] Last Admin: 03/14/17 09:40 Dose: 5 mg Magnesium Chloride (Slow-Mag) 64 mg PO BID [facility] Last Admin: 03/14/17 21:03 Dose: 64 mg Methylprednisolone (Solu-Medrol) 40 mg IVP Q8 [facility] Last Admin: 03/14/17 21:03 Dose: 40 mg Metoprolol Succinate (Toprol Xl) 12.5 mg PO DAILY [facility] Last Admin: 03/14/17 09:39 Dose: 12.5 mg Rosuvastatin Calcium (Crestor) 10 mg PO HS [facility] - Labs Labs: 03/14/17 09:52 03/14/17 09:52 PT 16.4 SECONDS (9.7-12.2) H 03/12/17 14:30 INR 1.4 03/12/17 14:30 APTT 27 SECONDS (21-34) 03/12/17 14:30 - Constitutional Appears: No Acute Distress - Head Exam Head Exam: ATRAUMATIC, NORMAL INSPECTION, NORMOCEPHALIC - Eye Exam Eye Exam: EOMI, Normal appearance, PERRL Pupil Exam: NORMAL ACCOMODATION, PERRL - Respiratory Exam Respiratory Exam: Decreased Breath Sounds, Rales, Rhonchi - Cardiovascular Exam Cardiovascular Exam: REGULAR RHYTHM, +S1, +S2. absent: Murmur - GI/Abdominal Exam GI & Abdominal Exam: Soft, Normal Bowel Sounds. absent: Tenderness - Neurological Exam Neurological Exam: Alert, Awake, CN II-XII Intact, Normal Gait, Oriented x3 - Psychiatric Exam Psychiatric exam: Normal Affect, Normal Mood Assessment and Plan (1) CHF (congestive heart failure) Status: Acute (2) Pneumonia Status: Acute (3) Anemia Status: Acute (4) Dyspnea Status: Acute (5) Endoleak post endovascular aneurysm repair Status: Acute
[2017-03-15] MEDS: Aritificial Tears (15ml) OU SCH ×4 (00:14→18:29)
--- NOTE | 2017-03-15 03:00 | CON ---
DATE: CARDIOLOGY CONSULTATION REASON FOR CONSULTATION: Shortness of breath as well as chronic atrial fibrillation. HISTORY OF PRESENT ILLNESS: The patient is an 86-year-old white male, who has a history of coronary artery disease, status post coronary artery bypass surgery, as well as mitral valve replacement with a bioprosthetic valve in 2006 at [facility] in [place]. The patient also during last admission in 03/07, one week ago, underwent a repair of left iliac artery endograft with insertion of endoprosthetic graft for endograft leak. The patient presented because of shortness of breath and cough. The patient denies retrosternal chest pain and the patient stated that in the past, he was placed on Coumadin therapy, but developed bleeding and required partial colectomy for that. SOCIAL HISTORY: The patient is a former smoker, quit 20 years ago. He was never . He lives with his niece and nephew. MEDICATIONS: The patient is on albuterol inhaler four times daily, aspirin 81 mg as needed, Feosol 325 mg once a day, heparin 5000 units subcutaneously twice a day, Lasix 40 mg intravenously once a day, Pepcid 20 mg once a day, Solu-Medrol 40 mg intravenously q. 8 hours, and Toprol-XL 12.5 mg daily. REVIEW OF SYSTEMS: No fever or chills. No hemoptysis. No melena. PHYSICAL EXAMINATION: GENERAL: The patient is an elderly male, who is mildly tachypneic but appears comfortable, not in any distress. VITAL SIGNS: Blood pressure 136/62, heart rate 82, temperature 97.7, respirations 20. HEENT: Pale conjunctivae. CHEST: Diffuse bilateral rhonchi. HEART: S1 and S2 are regular. ABDOMEN: Soft. EXTREMITIES: Trace leg edema. LABORATORY DATA: Today's hemoglobin and hematocrit are 9 and 26.3, white count 20.6, and platelet count 286,000. SMA-7: Sodium 136, potassium 3.9, chloride 98, CO2 of 22, glucose 163, BUN 64, creatinine 2.2. Troponins were borderline elevated at 0.225, 0.212, and 0.188. Magnesium is below normal at 12.5. INR is 1.4. D-dimer is 3570. Venous Doppler of the lower extremity with low probability for PE. Chest x-ray revealed cardiomegaly, bilateral lower lobe infiltrates, left pleural effusion cannot be ruled out. EKG revealed atrial fibrillation at the rate of 85, PVCs versus aberrancy, nonspecific ST-T wave changes. ASSESSMENT: 1. Congestive heart failure. 2. Consider bilateral pneumonia, possible left pleural effusion. 3. Consider non-ST elevation myocardial infarction. 4. Chronic renal insufficiency. 5. Hypomagnesemia. 6. Anemia. CONDITIONS: Continue aspirin 81 mg once a day, Feosol 325 mg once a day, subcutaneous heparin 5000 units q.12 hours, Lasix 40 mg intravenously once a day, Solu-Medrol 40 mg intravenously q. 8 hours, Toprol-XL 12.5 mg once a day, Zestril 2.5 mg once a day, Zosyn 2.25 gm intravenously q. [address] scan without contrast. Start Plavix 75 mg once a day. Magnesium sulfate intravenously was administered and start one tablet p.o. twice a day. Start Crestor 20 mg once a day. Rodrick Mckeon MD
--- NOTE | 2017-03-15 04:05 | CARD ---
APPROVED REPORT EKG Measurement Heart [id number] <Conclusion> Atrial fibrillation with premature ventricular or aberrantly conducted complexes Left axis deviation Nonspecific T wave abnormality Abnormal ECG
--- NOTE | 2017-03-15 04:52 | CP.PCM.PN ---
Subjective - Date & Time of Evaluation Date of Evaluation: 03/14/17 Time of Evaluation: 08:30 Objective - Vital Signs/Intake and Output Vital Signs (last 24 hours): Temp Pulse Resp BP Pulse Ox 97.4 F L 80 20 125/63 98 03/15/17 04:30 03/15/17 04:30 03/15/17 04:30 03/15/17 04:30 03/15/17 04:30 Intake and Output: 03/14/17 03/15/17 18:59 06:59 Intake Total 930 Output Total 400 Balance 530 - Medications Medications: Current Medications Albuterol/Ipratropium (Duoneb 3 Mg/0.5 Mg (3 Ml) Ud) 3 ml INH RQID [facility] Last Admin: 03/14/17 20:43 Dose: 3 ml Artificial Tears (Artificial Tears) 0 ml OU Q6 [facility] Last Admin: 03/14/17 17:42 Dose: 1 drop Aspirin (Ecotrin) 81 mg PO DAILY [facility] Last Admin: 03/14/17 09:40 Dose: 81 mg Clopidogrel Bisulfate (Plavix) 75 mg PO DAILY [facility] Last Admin: 03/14/17 17:42 Dose: 75 mg Famotidine (Pepcid) 20 mg PO DAILY [facility] Last Admin: 03/14/17 09:40 Dose: 20 mg Ferrous Sulfate (Feosol) 325 mg PO DAILY [facility] Last Admin: 03/14/17 09:39 Dose: 325 mg Furosemide (Lasix) 40 mg IVP DAILY [facility] Last Admin: 03/14/17 09:42 Dose: 40 mg Heparin Sodium (Porcine) (Heparin) 5,000 units SC Q12 [facility] Last Admin: 03/14/17 21:03 Dose: 5,000 units Piperacillin Sod/Tazobactam Sod (Zosyn 2.25 Gm Iv Premix) 2.25 gm in 50 mls @ 100 mls/hr IVPB Q8 [facility] Last Admin: 03/14/17 21:05 Dose: 100 mls/hr Lisinopril (Zestril) 5 mg PO DAILY [facility] Last Admin: 03/14/17 09:40 Dose: 5 mg Magnesium Chloride (Slow-Mag) 64 mg PO BID [facility] Last Admin: 03/14/17 21:03 Dose: 64 mg Methylprednisolone (Solu-Medrol) 40 mg IVP Q8 [facility] Last Admin: 03/14/17 21:03 Dose: 40 mg Metoprolol Succinate (Toprol Xl) 12.5 mg PO DAILY [facility] Last Admin: 03/14/17 09:39 Dose: 12.5 mg Rosuvastatin Calcium (Crestor) 10 mg PO HS [facility] - Labs Labs: 03/14/17 09:52 03/14/17 09:52 PT 16.4 SECONDS (9.7-12.2) H 03/12/17 14:30 INR 1.4 03/12/17 14:30 APTT 27 SECONDS (21-34) 03/12/17 14:30 - Constitutional Appears: Non-toxic - Head Exam Head Exam: NORMAL INSPECTION - Eye Exam Eye Exam: absent: Scleral icterus - Neck Exam Neck Exam: Full ROM - Respiratory Exam Respiratory Exam: absent: Decreased Breath Sounds
[2017-03-15] MEDS: MethylPREDNISolone 40 mg Vial IVP SCH ×3 (05:13→21:57)
[2017-03-15] MEDS: Piperacill/Tazo 2.25gm in Dex 2.25 GM/50 ML BAG IVPB SCH ×3 (05:57→22:07)
[2017-03-15] MEDS: Albuterol-Ipratrop 3 mg / 0.5 (3 ml) UD INH SCH ×4 (07:48→19:19)
[2017-03-15 08:18] LABS: BASO % 0.1 % (0.0-2.0); HEMOGLOBIN 8.7 g/dL (12.0-18.0); LYMPH # 0.5 K/uL (1.0-4.3); MEAN CELL VOLUME 92.6 fL (80.0-94.0); MEAN CORPUSCULAR HEMOGLOBIN 32.4 pg (27.0-31.0); MEAN PLATELET VOLUME 8.4 fL (7.2-11.7); MONO # 0.5 K/uL (0.0-0.8); MONO % 3.1 % (0.0-10.0); NEUT # 16.4 K/uL (1.8-7.0); NEUT % 93.8 % (50.0-75.0); PLATELET COUNT 290 K/uL (130-400); RBC 2.68 Mil/uL (4.40-5.90); RED CELL DISTRIBUTION WIDTH 13.6 % (11.5-14.5); WHITE BLOOD COUNT 17.5 K/uL (4.8-10.8)
[2017-03-15 08:26] LABS: CALCIUM 8.9 mg/dl (8.6-10.4)
[2017-03-15] MEDS: Magnesium Chloride 64 mg ER Tab PO SCH ×2 (10:27→18:25)
[2017-03-15] MEDS: Metoprolol Succinate 12.5 mg XL PO SCH (10:27)
[2017-03-15 10:35] LABS: BANDS 1 % (0-2); LYMPHOCYTE 1 % (20-40); MONOCYTE 1 % (0-10); NEUTROPHIL 97 % (50-75); PLATELET ESTIMATE NORMAL (NORMAL); TOTAL CELLS COUNTED 100
[2017-03-15 10:36] LABS: OVALOCYTES SLIGHT
[2017-03-15 10:37] LABS: LARGE PLATELETS PRESENT
--- NOTE | 2017-03-15 14:01 | CT ---
PROCEDURE: CT Chest without contrast HISTORY: sob , r/o pneumonia COMPARISON: None. TECHNIQUE: Contiguous axial images were obtained through the chest without intravenous contrast enhancement. Sagittal and coronal reconstructions were performed. Radiation dose (DLP): 498.75 mGy-cm. This CT exam was performed using one or more of the following dose reduction techniques: Automated exposure control, adjustment of the mA and/or kV according to patient size, and/or use of iterative reconstruction technique. FINDINGS: LUNGS: There is 11.5 millimeter pleural-based noncalcified nodule at the right lung upper lobe image 49 series 3. There is a pleural-based opacity at the left lung base may represent atelectasis. The possibility of pleural thickening or pneumonia is not totally excluded. There is focal hazy infiltrate at the right lung base may represent also atelectasis or pneumonia. Moderate emphysematous changes predominant in the upper lobes are noted. MEDIASTINUM: The heart is mildly to moderately enlarged. Postsurgical changes are noted suggestive of prior cardiac bypass surgery. There is no evidence of pericardial effusion. Coronary artery stents and calcification are noted. Mildly enlarged main pulmonary artery. No vascular congestion. No lymphadenopathy. PLEURA: There is a trace left pleural effusion. BONES: No fracture. No destructive lesion. UPPER ABDOMEN: Grossly unremarkable. OTHER FINDINGS: None. IMPRESSION: Pleural-based opacity at the left lung base may represent atelectasis versus pneumonia or pleural thickening. Trace left pleural effusion. 11.5 millimeter pleural based noncalcified nodule at the right lung upper lobe. Three months follow-up reassessment is suggested. If indicated PET-CT may be obtained for further assessment. Moderate emphysematous changes predominant in the upper lobes. Hazy focal opacity at the right lung base may represent atelectasis or less likely pneumonia. Cardiomegaly.
--- NOTE | 2017-03-15 15:24 | CP.PCM.CON ---
History of Present Illness - History of Present Illness History of Present Illness: HPI: 86yo white male with history of hypertension, hyperlipidemia, CHF and recent endovascular repair of his left iliac artery, pt went home and did not feel better so he presents to ED with complaints of worsening shortness of breath, associated with a mild non-productive cough. Patient denies any chest pain, weakness, abdominal pain, fever or chills. No other medical complaints. Had previous iliac stent which leaked and needed replacement recently. Presented with CHF treated with IV lasix PMH: CKD 3 RECURRENT CHF CAD POST CABG S/P MVR CHRONIC AFIB HTN BPH DIFFUSE ATHEROSCLEROSIS PSH: S/P LITHIOTOMY CABG MVR CHOLEYCYSTECTOMY HEMICOLECTOMY DUE TO BLEEDING ILIAC STENTS Review of Systems - Constitutional Constitutional: Fatigue, Weakness - EENT Eyes: absent: As Per HPI, Blind Spots, Blurred Vision, Change in Vision, Decreased Night Vision, Diplopia, Discharge, Dry Eye, Exophthalmos, Floaters, Irritation, Itchy Eyes, Loss of Peripheral Vision, Pain, Photophobia, Requires Corrective Lenses, Sees Flashes, Spots in Vision, Tunnel Vision, Other Visual Disturbances, Loss of Vision, Other Ears: absent: As Per HPI, Decreased Hearing, Ear Discharge, Ear Pain, Tinnitus, Abnormal Hearing, Disequilibrium, Dizziness, Other Nose/Mouth/Throat: absent: As Per HPI, Epistaxis, Nasal Congestion, Nasal Discharge, Nasal Obstruction, Nasal Trauma, Nose Pain, Post Nasal Drip, Sinus Pain, Sinus Pressure, Bleeding Gums, Change in Voice, Dental Pain, Dry Mouth, Dysphagia, Halitosis, Hoarsness, Lip Swelling, Mouth Lesions, Mouth Pain, Odynophagia, Sore Throat, Throat Swelling, Tongue Swelling, Facial Pain, Neck Pain, Neck Mass, Other - Cardiovascular Cardiovascular: Dyspnea on Exertion, Irregular Heart Rhythm, Leg Edema - Respiratory Respiratory: Cough, Dyspnea - Gastrointestinal Gastrointestinal: Nausea - Genitourinary Genitourinary: Change in Urinary Stream - Musculoskeletal Musculoskeletal: Muscle Cramps, Muscle Weakness - Neurological Neurological: Weakness Past Patient History - Infectious Disease Hx of Infectious Diseases: None - Past Medical History & Family History Past Medical History?: Yes Past Family History: Reviewed and not pertinent - Past Social History Smoking Status: Former Smoker Chewing Tobacco Use: No Cigar Use: No Alcohol: None Drugs: Denies Home Situation {Lives}: With Family - CARDIAC Hx Cardiac Disorders: Yes (C ARRHYTHMIA) Hx Congestive Heart Failure: Yes - PULMONARY Hx Chronic Obstructive Pulmonary Disease (COPD): Yes - NEUROLOGICAL Hx Neurological Disorder: Yes Hx Dizziness: Yes - HEENT Hx HEENT Problems: Yes Hx Cataracts: Yes (BILAT IOL) - RENAL Hx Chronic Kidney Disease: Yes (RENAL INSUFFICIENCY) Hx Kidney Stones: Yes - ENDOCRINE/METABOLIC Hx Endocrine Disorders: No - HEMATOLOGICAL/ONCOLOGICAL Hx Anemia: Yes - INTEGUMENTARY Hx Dermatological Problems: No - MUSCULOSKELETAL/RHEUMATOLOGICAL Hx Arthritis: Yes - GASTROINTESTINAL Hx Gall Bladder Disease: Yes (CHOLECYSTECTOMY) - GENITOURINARY/GYNECOLOGICAL Hx Genitourinary Disorders: Yes Hx Prostate Problems: Yes Other/Comment: colon removed - PSYCHIATRIC Hx Substance Use: No - SURGICAL HISTORY Hx Cholecystectomy: Yes Hx Coronary Artery Bypass Graft: Yes Hx Coronary Stent: Yes - ANESTHESIA Hx Anesthesia: Yes Hx Anesthesia Reactions: No Hx Malignant Hyperthermia: No Meds Allergies/Adverse Reactions: Allergies Allergy/AdvReac Type Severity Reaction Status Date / Time moxifloxacin [From Avelox] Allergy Intermediate Verified 03/12/17 12:41 - Medications Medications: Current Medications Albuterol/Ipratropium (Duoneb 3 Mg/0.5 Mg (3 Ml) Ud) 3 ml INH RQID [facility] Last Admin: 03/15/17 12:41 Dose: 3 ml Artificial Tears (Artificial Tears) 0 ml OU Q6 [facility] Last Admin: 03/15/17 13:00 Dose: 1 drop Aspirin (Ecotrin) 81 mg PO DAILY [facility] Last Admin: 03/15/17 10:27 Dose: 81 mg Clopidogrel Bisulfate (Plavix) 75 mg PO DAILY [facility] Last Admin: 03/15/17 10:27 Dose: 75 mg Famotidine (Pepcid) 20 mg PO DAILY [facility] Last Admin: 03/15/17 10:27 Dose: 20 mg Ferrous Sulfate (Feosol) 325 mg PO DAILY [facility] Last Admin: 03/15/17 10:32 Dose: 325 mg Furosemide (Lasix) 40 mg IVP DAILY [facility] Last Admin: 03/15/17 10:28 Dose: 40 mg Heparin Sodium (Porcine) (Heparin) 5,000 units SC Q12 [facility] Last Admin: 03/15/17 10:27 Dose: 5,000 units Piperacillin Sod/Tazobactam Sod (Zosyn 2.25 Gm Iv Premix) 2.25 gm in 50 mls @ 100 mls/hr IVPB Q8 [facility] Last Admin: 03/15/17 13:36 Dose: 100 mls/hr Lisinopril (Zestril) 5 mg PO DAILY [facility] Last Admin: 03/15/17 10:27 Dose: 5 mg Magnesium Chloride (Slow-Mag) 64 mg PO BID [facility] Last Admin: 03/15/17 10:27 Dose: 64 mg Methylprednisolone (Solu-Medrol) 40 mg IVP Q8 [facility] Last Admin: 03/15/17 13:36 Dose: 40 mg Metoprolol Succinate (Toprol Xl) 12.5 mg PO DAILY [facility] Last Admin: 03/15/17 10:27 Dose: 12.5 mg Rosuvastatin Calcium (Crestor) 10 mg PO [facility] Physical Exam - Constitutional Appears: No Acute Distress, Chronically Ill - Head Exam Head Exam: ATRAUMATIC, NORMAL INSPECTION - Eye Exam Eye Exam: EOMI, Normal appearance - Neck Exam Neck exam: Positive for: Normal Inspection. Negative for: Tenderness - Respiratory Exam Respiratory Exam: Clear to Auscultation Bilateral, Respiratory Distress - Cardiovascular Exam Cardiovascular Exam: Irregular Rhythm, Systolic Murmur - GI/Abdominal Exam GI & Abdominal Exam: Soft. absent: Tenderness - Extremities Exam Extremities exam: Positive for: normal inspection, pedal edema - Neurological Exam Neurological exam: CN II-XII Intact, Oriented x3 - Skin Skin Exam: Dry, Warm Results - Vital Signs Recent Vital Signs: Last Vital Signs Temp 97.6 F 03/15/17 08:00 Pulse 78 03/15/17 08:00 Resp 20 03/15/17 08:00 BP 147/64 03/15/17 10:28 Pulse Ox 97 03/15/17 08:00 - Labs Result Diagrams: 03/15/17 08:05 03/15/17 08:05 Labs: Laboratory Results - last 24 hr 03/15/17 03/15/17 08:05 08:05 WBC 17.5 H RBC 2.68 L Hgb 8.7 L Hct 24.8 L MCV 92.6 MCH 32.4 H MCHC 35.0 RDW 13.6 Plt Count 290 MPV 8.4 Neut % (Auto) 93.8 H Lymph % (Auto) 3.0 L Hyde % (Auto) 3.1 Eos % (Auto) 0.0 Baso % (Auto) 0.1 Neut # (Auto) 16.4 H Lymph # (Auto) 0.5 L Hyde # (Auto) 0.5 Eos # (Auto) 0.0 Baso # (Auto) 0.0 Neutrophils % (Manual) 97 H Band Neutrophils % 1 Lymphocytes % (Manual) 1 L Monocytes % (Manual) 1 Platelet Estimate Normal Large Platelets Present Basophilic Stippling Slight Ovalocytes Slight Sodium 140 Potassium 3.6 Chloride 100 Carbon Dioxide 26 Anion Gap 18 BUN 59 H Creatinine 2.5 H Est GFR ( Amer) 30 Est GFR (Non-Af Amer) 24 Random Glucose 138 H Calcium 8.9 Magnesium 2.0 Assessment & Plan (1) ANNABEL (acute kidney injury) Status: Acute (2) CAD (coronary artery disease) Status: Acute (3) Contrast dye induced nephropathy Status: Acute (4) CKD (chronic kidney disease) stage 3, GFR 30-59 ml/min Status: Acute (5) HTN (hypertension) Status: Acute (6) Hyperlipemia Status: Acute (7) Hypertension Status: Chronic (8) Leukocytosis Status: Acute - Assessment and Plan (Free Text) Plan: Decrease IV lasix dose stop NAYANA I renal US serial chemistries check for proteinuria
--- NOTE | 2017-03-15 17:07 | US ---
PROCEDURE: Ultrasound of the Kidneys HISTORY: [place] COMPARISON: None available. TECHNIQUE: Sonogram of the kidneys. FINDINGS: RIGHT KIDNEY: Measures: 9.8 x 4.3 x 4.6 cm. The right kidney is echogenic suggestive of medical renal disease. No stone, solid mass lesion or hydronephrosis visualized. LEFT KIDNEY: Measures: 9.2 x 4.1 x 4.3 centimeter. Cm. The left kidney is also echogenic suggestive of medical renal disease. No stone, solid mass lesion or hydronephrosis visualized. OTHER FINDINGS: Infra renal partake aneurysm measures 6.8 centimeter in the AP diameter and 9.4 centimeter in the transverse diameter contains large mural thickening/hematoma. The bladder is partially distended. IMPRESSION: Echogenic kidneys suggestive of medical renal disease. Infrarenal abdominal aortic aneurysm was better seen in the previous CT dated 03/01/2017
--- NOTE | 2017-03-15 22:37 | CP.PCM.PN ---
Subjective - Date & Time of Evaluation Date of Evaluation: 03/15/17 Time of Evaluation: 17:45 - Subjective Subjective: Pt seen & examined, pt i feeling better, he is improving, less short of breath Objective - Vital Signs/Intake and Output Vital Signs (last 24 hours): Temp Pulse Resp BP Pulse Ox 98.0 F 82 20 159/77 H 97 03/15/17 15:18 03/15/17 15:18 03/15/17 15:18 03/15/17 17:00 03/15/17 15:18 Intake and Output: 03/15/17 03/16/17 18:59 06:59 Intake Total 650 Balance 650 - Medications Medications: Current Medications Albuterol/Ipratropium (Duoneb 3 Mg/0.5 Mg (3 Ml) Ud) 3 ml INH RQID [facility] Last Admin: 03/15/17 19:19 Dose: Not Given Artificial Tears (Artificial Tears) 0 ml OU Q6 [facility] Last Admin: 03/15/17 18:29 Dose: 1 drop Aspirin (Ecotrin) 81 mg PO DAILY [facility] Last Admin: 03/15/17 10:27 Dose: 81 mg Clopidogrel Bisulfate (Plavix) 75 mg PO DAILY [facility] Last Admin: 03/15/17 10:27 Dose: 75 mg Famotidine (Pepcid) 20 mg PO DAILY [facility] Last Admin: 03/15/17 10:27 Dose: 20 mg Ferrous Sulfate (Feosol) 325 mg PO DAILY [facility] Last Admin: 03/15/17 10:32 Dose: 325 mg Furosemide (Lasix) 20 mg IVP DAILY [facility] Last Admin: 03/15/17 17:00 Dose: 20 mg Heparin Sodium (Porcine) (Heparin) 5,000 units SC Q12 [facility] Last Admin: 03/15/17 21:58 Dose: 5,000 units Hydralazine HCl (Apresoline) 25 mg PO Q8 [facility] Last Admin: 03/15/17 21:57 Dose: 25 mg Piperacillin Sod/Tazobactam Sod (Zosyn 2.25 Gm Iv Premix) 2.25 gm in 50 mls @ 100 mls/hr IVPB Q8 [facility] Last Admin: 03/15/17 22:07 Dose: 100 mls/hr Magnesium Chloride (Slow-Mag) 64 mg PO BID [facility] Last Admin: 03/15/17 18:25 Dose: 64 mg Methylprednisolone (Solu-Medrol) 40 mg IVP Q12 [facility] Last Admin: 03/15/17 21:57 Dose: 40 mg Metoprolol Succinate (Toprol Xl) 50 mg PO DAILY [facility] Rosuvastatin Calcium (Crestor) 10 mg PO HS [facility] Last Admin: 03/15/17 21:57 Dose: 10 mg - Labs Labs: 03/15/17 08:05 03/15/17 08:05 PT 16.4 SECONDS (9.7-12.2) H 03/12/17 14:30 INR 1.4 03/12/17 14:30 APTT 27 SECONDS (21-34) 03/12/17 14:30 - Constitutional Appears: No Acute Distress - Head Exam Head Exam: ATRAUMATIC, NORMAL INSPECTION, NORMOCEPHALIC - Eye Exam Eye Exam: EOMI, Normal appearance, PERRL Pupil Exam: NORMAL ACCOMODATION, PERRL - Respiratory Exam Respiratory Exam: Decreased Breath Sounds, Rales, Rhonchi - Cardiovascular Exam Cardiovascular Exam: REGULAR RHYTHM, +S1, +S2. absent: Murmur - GI/Abdominal Exam GI & Abdominal Exam: Soft, Normal Bowel Sounds. absent: Tenderness Assessment and Plan (1) CHF (congestive heart failure) Status: Acute (2) Pneumonia Status: Acute (3) Anemia Status: Acute (4) Dyspnea Status: Acute (5) [place] post endovascular aneurysm repair Status: Acute
--- NOTE | 2017-03-15 22:56 | PN ---
DATE: SUBJECTIVE: The patient denies retrosternal chest pain, monitor revealed nonsustained ventricular tachycardia. PHYSICAL EXAMINATION: VITAL SIGNS: Blood pressure 159/77, heart rate 82, temperature 98, and respirations 20. HEENT: Normocephalic. CHEST: Bilateral rhonchi, diminished breath sounds over the left base. HEART: S1 and S2, regular. EXTREMITIES: Trace leg edema. Chest CT scan revealed pleural based opacity at the left lung base, negative for presence of atelectasis versus pneumonia or pleural thickening. Trace left pleural effusion. An 11.5 mm pleural based noncalcified nodule in the right upper lung lobe. Marked emphysematous changes. Renal ultrasound, echogenic kidney suggestive of medical renal disease. ASSESSMENT: 1. Congestive heart failure. 2. Consider left lower lobe pneumonia. 3. Consider non-ST elevation myocardial infarction. 4. Chronic renal insufficiency. 5. Nonsustained ventricular tachycardia. 6. Chronic atrial fibrillation with history of major bleeding in the past, requiring partial colectomy. CONDITIONS: Continue aspirin 81 mg once a day, Plavix 75 mg once a day, subcutaneous heparin 5000 units q.12 hours, Slow-Mag 64 mg twice a day, increase Toprol -XL to 50 mg once a day. Continue IV Zosyn at 2.25 gm intravenous q.8 hours. The patient is a poor candidate for cardiac catheterization because of underlying significant renal insufficiency, as well as coexistent peripheral vascular disease, conservative medical approach is justified. I will further discuss the case with his primary debt collection specialist, Dr. Saha. Rodrick Mckeon MD
[2017-03-15 23:39] LABS: SQUAMOUS EPITHIAL < 1 /hpf (0-5); URINE BACTERIA RARE (<OCC); URINE BILIRUBIN NEGATIVE (NEGATIVE); URINE BLOOD NEGATIVE (NEGATIVE); URINE CLARITY Clear (Clear); URINE COLOR Straw (YELLOW); URINE GLUCOSE (UA) NORMAL (Normal); URINE HYALINE CAST 0-2 /lpf (0-2); URINE LEUKOCYTE ESTERASE TRACE Leu/uL (Negative); URINE NITRATE NEGATIVE (NEGATIVE); URINE PROTEIN NEGATIVE (NEGATIVE); URINE UROBILINOGEN NORMAL mg/dL (0.2-1.0)
[2017-03-16] MEDS: Aritificial Tears (15ml) OU SCH ×4 (00:32→17:26)
[2017-03-16] MEDS: Piperacill/Tazo 2.25gm in Dex 2.25 GM/50 ML BAG IVPB SCH ×3 (05:32→21:31)
[2017-03-16] MEDS: Albuterol-Ipratrop 3 mg / 0.5 (3 ml) UD INH SCH ×4 (08:30→19:26)
[2017-03-16] MEDS: Metoprolol Succinate 50 mg XL Tab PO SCH (09:26)
[2017-03-16] MEDS: MethylPREDNISolone 40 mg Vial IVP SCH (09:27)
[2017-03-16] MEDS: Magnesium Chloride 64 mg ER Tab PO SCH ×2 (09:35→17:26)
[2017-03-16 09:56] LABS: ALB/GLOB RATIO 1.1 (1.0-2.1); ALBUMIN 3.6 g/dL (3.5-5.0); MAGNESIUM 1.9 mg/dL (1.6-2.3)
[2017-03-16 09:58] LABS: MEAN CELL VOLUME 93.5 fL (80.0-94.0); MEAN CORPUSCULAR HEMOGLOBIN 32.6 pg (27.0-31.0); MEAN CORPUSCULAR HGB CONC 34.8 g/dL (33.0-37.0); MEAN PLATELET VOLUME 8.6 fL (7.2-11.7); RBC 2.77 Mil/uL (4.40-5.90); RED CELL DISTRIBUTION WIDTH 13.6 % (11.5-14.5); WHITE BLOOD COUNT 12.8 K/uL (4.8-10.8)
--- NOTE | 2017-03-16 10:06 | CP.PCM.PN ---
Subjective - Date & Time of Evaluation Date of Evaluation: 03/16/17 Time of Evaluation: 10:03 - Subjective Subjective: pt seen and examined sitting in bed, eating breakfast no SOB at rest no chest pain afebrile labs pending ROS- as per HPI, rest 10 point ROS negative Objective - Vital Signs/Intake and Output Vital Signs (last 24 hours): Temp Pulse Resp BP Pulse Ox 97.2 F L 95 H 20 160/72 H 98 03/16/17 07:00 03/16/17 07:00 03/16/17 07:00 03/16/17 09:32 03/16/17 07:00 - Medications Medications: Current Medications Albuterol/Ipratropium (Duoneb 3 Mg/0.5 Mg (3 Ml) Ud) 3 ml INH RQID [facility] Last Admin: 03/16/17 08:30 Dose: 3 ml Artificial Tears (Artificial Tears) 0 ml OU Q6 [facility] Last Admin: 03/16/17 05:32 Dose: 1 drop Aspirin (Ecotrin) 81 mg PO DAILY [facility] Last Admin: 03/16/17 09:26 Dose: 81 mg Clopidogrel Bisulfate (Plavix) 75 mg PO DAILY [facility] Last Admin: 03/15/17 10:27 Dose: 75 mg Famotidine (Pepcid) 20 mg PO DAILY [facility] Last Admin: 03/16/17 09:26 Dose: 20 mg Ferrous Sulfate (Feosol) 325 mg PO DAILY [facility] Last Admin: 03/16/17 09:28 Dose: 325 mg Furosemide (Lasix) 20 mg IVP DAILY [facility] Last Admin: 03/16/17 09:32 Dose: 20 mg Heparin Sodium (Porcine) (Heparin) 5,000 units SC Q12 [facility] Last Admin: 03/16/17 09:31 Dose: 5,000 units Hydralazine HCl (Apresoline) 25 mg PO Q8 [facility] Last Admin: 03/16/17 05:32 Dose: 25 mg Piperacillin Sod/Tazobactam Sod (Zosyn 2.25 Gm Iv Premix) 2.25 gm in 50 mls @ 100 mls/hr IVPB Q8 [facility] Last Admin: 03/16/17 05:32 Dose: 100 mls/hr Magnesium Chloride (Slow-Mag) 64 mg PO BID [facility] Last Admin: 03/16/17 09:35 Dose: 64 mg Methylprednisolone (Solu-Medrol) 40 mg IVP Q12 [facility] Last Admin: 03/16/17 09:27 Dose: 40 mg Metoprolol Succinate (Toprol Xl) 50 mg PO DAILY [facility] Last Admin: 03/16/17 09:26 Dose: 50 mg Rosuvastatin Calcium (Crestor) 10 mg PO HS [facility] Last Admin: 03/15/17 21:57 Dose: 10 mg - Labs Labs: 03/15/17 08:05 03/16/17 09:20 PT 16.4 SECONDS (9.7-12.2) H 03/12/17 14:30 INR 1.4 03/12/17 14:30 APTT 27 SECONDS (21-34) 03/12/17 14:30 - Constitutional Appears: Well, Toxic - Head Exam Head Exam: ATRAUMATIC, NORMOCEPHALIC - Eye Exam Eye Exam: EOMI, PERRL - ENT Exam ENT Exam: Mucous Membranes Moist - Neck Exam Neck Exam: Full ROM - Respiratory Exam Respiratory Exam: Rhonchi. absent: Wheezes - Cardiovascular Exam Cardiovascular Exam: REGULAR RHYTHM, +S1, +S2 - GI/Abdominal Exam GI & Abdominal Exam: Soft. absent: Distended, Tenderness - Extremities Exam Extremities Exam: Full ROM. absent: Pedal Edema - Neurological Exam Neurological Exam: Alert, Awake, Oriented x3 - Psychiatric Exam Psychiatric exam: Normal Affect, Normal Mood - Skin Skin Exam: Dry, Warm Assessment and Plan (1) ANNABEL (acute kidney injury) Status: Acute (2) Atrial fibrillation Status: Acute (3) CAD (coronary artery disease) Status: Acute (4) NSTEMI (non-ST elevated myocardial infarction) Status: Acute (5) CKD (chronic kidney disease) stage 3, GFR 30-59 ml/min Status: Acute - Assessment and Plan (Free Text) Plan: cr up to 2.5 yesterday todays labs pending no clinical active HF at present rec holding diuretics continue to hold NAYANA I duonebs on steroids daily labs
--- NOTE | 2017-03-16 21:49 | PN ---
SUBJECTIVE: The patient is mildly short of breath. He reports some imbalanced gait but no dizziness or falling. PHYSICAL EXAMINATION VITAL SIGNS: Blood pressure 159/77, heart rate 74, temperature 97.4, and respirations 20. HEENT: Pale conjunctivae. CHEST: Bilateral rhonchi. HEART: S1 and S2, regular. EXTREMITIES: Trace leg edema. LABORATORY DATA: Today's SMA-7 showed sodium 139, potassium 3.7, chloride 97, CO2 28, glucose 158, BUN 65, creatinine 2.5 . Hemoglobin and hematocrit are 9 and 26.0, white count 12.8, platelet count 307,000. ASSESSMENT: 1. Non-ST elevation myocardial infarction. 2. Ischemic cardiomyopathy. 3. Left lower lobe pneumonia. 4. Chronic renal insufficiency. 5. Recurrent nonsustained ventricular tachycardia. 6. Chronic atrial fibrillation. RECOMMENDATIONS: The case was discussed with Dr. Marshall Moreno. Continue current hydralazine 25 mg q.8 hours, Crestor 10 mg once a day, aspirin 81 mg once a day, subcutaneous heparin 5000 units twice day, Lasix 20 mg intravenously once a day, Plavix 75 mg once a day, Solu-Medrol 40 mg intravenously once a day, Toprol-XL 50 mg once a day, Zosyn 2.25 gm intravenously q.8 hours. Invasive cardiac workup will be deferred to Dr. Saha upon his coming back on Saturday. Overall, patient is a high risk candidate for invasive cardiac workup in view of underlying significant renal insufficiency. I did request electrophysiology evaluation by Dr. Barrera. The patient is being followed by , and the patient is being followed by nephrology group, and Dr. Rueda has seen him today for his chronic renal insufficiency. Rodrick Mckeon MD
[2017-03-17] MEDS: Aritificial Tears (15ml) OU SCH ×4 (00:05→17:51)
--- NOTE | 2017-03-17 00:12 | CP.PCM.PN ---
Subjective - Date & Time of Evaluation Date of Evaluation: 03/16/17 Time of Evaluation: 15:00 - Subjective Subjective: Patient seen & evaluated at bedside, less short of breath, is not requring oxygen, he has been diuresed, no fever, chills Objective - Vital Signs/Intake and Output Vital Signs (last 24 hours): Temp Pulse Resp BP Pulse Ox 97.4 F L 69 20 151/80 H 98 03/16/17 15:00 03/16/17 16:15 03/16/17 15:00 03/16/17 21:34 03/16/17 15:00 Intake and Output: 03/16/17 03/17/17 18:59 06:59 Intake Total 50 Balance 50 - Medications Medications: Current Medications Albuterol/Ipratropium (Duoneb 3 Mg/0.5 Mg (3 Ml) Ud) 3 ml INH RQID [facility] Last Admin: 03/16/17 19:26 Dose: 3 ml Artificial Tears (Artificial Tears) 0 ml OU Q6 [facility] Last Admin: 03/17/17 00:05 Dose: 1 drop Aspirin (Ecotrin) 81 mg PO DAILY [facility] Last Admin: 03/16/17 09:26 Dose: 81 mg Clopidogrel Bisulfate (Plavix) 75 mg PO DAILY [facility] Last Admin: 03/16/17 13:05 Dose: 75 mg Famotidine (Pepcid) 20 mg PO DAILY [facility] Last Admin: 03/16/17 09:26 Dose: 20 mg Ferrous Sulfate (Feosol) 325 mg PO DAILY [facility] Last Admin: 03/16/17 09:28 Dose: 325 mg Furosemide (Lasix) 20 mg IVP DAILY [facility] Last Admin: 03/16/17 09:32 Dose: 20 mg Heparin Sodium (Porcine) (Heparin) 5,000 units SC Q12 [facility] Last Admin: 03/16/17 21:31 Dose: 5,000 units Hydralazine HCl (Apresoline) 25 mg PO Q8 [facility] Last Admin: 03/16/17 21:31 Dose: 25 mg Piperacillin Sod/Tazobactam Sod (Zosyn 2.25 Gm Iv Premix) 2.25 gm in 50 mls @ 100 mls/hr IVPB Q8 [facility] Last Admin: 03/16/17 21:31 Dose: 100 mls/hr Magnesium Chloride (Slow-Mag) 64 mg PO BID [facility] Last Admin: 03/16/17 17:26 Dose: 64 mg Methylprednisolone (Solu-Medrol) 40 mg IVP DAILY [facility] Metoprolol Succinate (Toprol Xl) 50 mg PO DAILY [facility] Last Admin: 03/16/17 09:26 Dose: 50 mg Rosuvastatin Calcium (Crestor) 10 mg PO HS [facility] Last Admin: 03/15/17 21:57 Dose: 10 mg - Labs Labs: 03/16/17 09:20 03/16/17 09:20 PT 16.4 SECONDS (9.7-12.2) H 03/12/17 14:30 INR 1.4 03/12/17 14:30 APTT 27 SECONDS (21-34) 03/12/17 14:30 - Constitutional Appears: No Acute Distress - Head Exam Head Exam: ATRAUMATIC, NORMAL INSPECTION, NORMOCEPHALIC - Eye Exam Eye Exam: EOMI, Normal appearance, PERRL Pupil Exam: NORMAL ACCOMODATION, PERRL - Respiratory Exam Respiratory Exam: Decreased Breath Sounds, NORMAL BREATHING PATTERN - Cardiovascular Exam Cardiovascular Exam: REGULAR RHYTHM, +S1, +S2. absent: Murmur - GI/Abdominal Exam GI & Abdominal Exam: Soft, Normal Bowel Sounds. absent: Tenderness - Back Exam Back Exam: NORMAL INSPECTION - Neurological Exam Neurological Exam: Alert, Awake, CN II-XII Intact, Normal Gait, Oriented x3 Assessment and Plan (1) CHF (congestive heart failure) Status: Acute (2) Pneumonia Status: Acute (3) Anemia Status: Acute (4) Dyspnea Status: Acute (5) Endoleak post endovascular aneurysm repair Status: Acute
[2017-03-17] MEDS: Piperacill/Tazo 2.25gm in Dex 2.25 GM/50 ML BAG IVPB SCH ×3 (05:07→21:05)
[2017-03-17] MEDS: Albuterol-Ipratrop 3 mg / 0.5 (3 ml) UD INH SCH ×4 (08:11→19:41)
[2017-03-17 09:04] LABS: HEMOGLOBIN 9.1 g/dL (12.0-18.0); MEAN CELL VOLUME 93.5 fL (80.0-94.0); MEAN CORPUSCULAR HGB CONC 34.2 g/dL (33.0-37.0); RBC 2.85 Mil/uL (4.40-5.90); RED CELL DISTRIBUTION WIDTH 13.6 % (11.5-14.5); WHITE BLOOD COUNT 12.9 K/uL (4.8-10.8)
[2017-03-17 09:23] LABS: ALB/GLOB RATIO 1.1 (1.0-2.1); ALBUMIN 3.6 g/dL (3.5-5.0)
[2017-03-17] MEDS: Metoprolol Succinate 50 mg XL Tab PO SCH (09:47)
[2017-03-17] MEDS: Magnesium Chloride 64 mg ER Tab PO SCH ×2 (09:47→17:51)
[2017-03-17] MEDS: MethylPREDNISolone 40 mg Vial IVP SCH (09:48)
[2017-03-17] MEDS ORDERED: Potassium Chloride 20 mEq/15 ml LIQ UD PO ONE (10:15)
--- NOTE | 2017-03-17 11:56 | CP.PCM.PN ---
Subjective - Date & Time of Evaluation Date of Evaluation: 03/17/17 Time of Evaluation: 17:00 - Subjective Subjective: Patient seen & evaluated at bedside, less short of breath, is not requring oxygen, he has been diuresed, no fever, chills Objective - Vital Signs/Intake and Output Vital Signs (last 24 hours): Temp Pulse Resp BP Pulse Ox 98.1 F 75 20 148/80 96 03/17/17 08:37 03/17/17 08:37 03/17/17 08:37 03/17/17 09:48 03/17/17 08:37 Intake and Output: 03/17/17 03/17/17 06:59 18:59 Intake Total 300 Output Total 200 Balance 100 - Medications Medications: Current Medications Albuterol/Ipratropium (Duoneb 3 Mg/0.5 Mg (3 Ml) Ud) 3 ml INH RQID [facility] Last Admin: 03/17/17 08:11 Dose: 3 ml Artificial Tears (Artificial Tears) 0 ml OU Q6 [facility] Last Admin: 03/17/17 11:04 Dose: 1 drop Aspirin (Ecotrin) 81 mg PO DAILY [facility] Last Admin: 03/17/17 09:47 Dose: 81 mg Clopidogrel Bisulfate (Plavix) 75 mg PO DAILY [facility] Last Admin: 03/17/17 09:50 Dose: Not Given Famotidine (Pepcid) 20 mg PO DAILY [facility] Last Admin: 03/17/17 09:47 Dose: 20 mg Ferrous Sulfate (Feosol) 325 mg PO DAILY [facility] Last Admin: 03/17/17 09:49 Dose: 325 mg Furosemide (Lasix) 20 mg IVP DAILY [facility] Last Admin: 03/17/17 09:48 Dose: 20 mg Hydralazine HCl (Apresoline) 25 mg PO Q8 [facility] Last Admin: 03/17/17 05:08 Dose: 25 mg Piperacillin Sod/Tazobactam Sod (Zosyn 2.25 Gm Iv Premix) 2.25 gm in 50 mls @ 100 mls/hr IVPB Q8 [facility] Last Admin: 03/17/17 05:07 Dose: 100 mls/hr Magnesium Chloride (Slow-Mag) 64 mg PO BID [facility] Last Admin: 03/17/17 09:47 Dose: 64 mg Methylprednisolone (Solu-Medrol) 40 mg IVP DAILY [facility] Last Admin: 03/17/17 09:48 Dose: 40 mg Metoprolol Succinate (Toprol Xl) 50 mg PO DAILY [facility] Last Admin: 03/17/17 09:47 Dose: 50 mg Rosuvastatin Calcium (Crestor) 10 mg PO HS [facility] Last Admin: 03/15/17 21:57 Dose: 10 mg - Labs Labs: 03/17/17 08:43 03/17/17 08:43 PT 16.4 SECONDS (9.7-12.2) H 03/12/17 14:30 INR 1.4 03/12/17 14:30 APTT 27 SECONDS (21-34) 03/12/17 14:30 Assessment and Plan (1) CHF (congestive heart failure) Status: Acute (2) Pneumonia Status: Acute (3) Anemia Status: Acute (4) Dyspnea Status: Acute (5) Endoleak post endovascular aneurysm repair Status: Acute
[2017-03-18] MEDS: Aritificial Tears (15ml) OU SCH ×4 (00:50→18:28)
[2017-03-18] MEDS: Piperacill/Tazo 2.25gm in Dex 2.25 GM/50 ML BAG IVPB SCH ×3 (05:51→21:29)
[2017-03-18] MEDS: Albuterol-Ipratrop 3 mg / 0.5 (3 ml) UD INH SCH ×3 (07:25→14:16)
[2017-03-18 08:17] LABS: ALB/GLOB RATIO 1.1 (1.0-2.1); ALBUMIN 3.1 g/dL (3.5-5.0); CALCIUM 8.4 mg/dl (8.6-10.4)
[2017-03-18] MEDS: Magnesium Chloride 64 mg ER Tab PO SCH ×2 (09:50→18:29)
[2017-03-18] MEDS: Metoprolol Succinate 50 mg XL Tab PO SCH (09:50)
[2017-03-18] MEDS: MethylPREDNISolone 40 mg Vial IVP SCH (09:51)
--- NOTE | 2017-03-18 13:05 | CP.PCM.PN ---
Subjective - Date & Time of Evaluation Date of Evaluation: 03/18/17 Time of Evaluation: 13:03 - Subjective Subjective: still SOB at times, better though creat decreased to 2.1 Hg low, iron stores adequate renal US consistent with CKD Objective - Vital Signs/Intake and Output Vital Signs (last 24 hours): Temp Pulse Resp BP Pulse Ox 97.6 F 72 18 156/94 H 100 03/18/17 07:50 03/18/17 07:50 03/18/17 07:50 03/18/17 09:53 03/18/17 07:50 Intake and Output: 03/18/17 03/18/17 06:59 18:59 Intake Total 200 Balance 200 - Medications Medications: Current Medications Artificial Tears (Artificial Tears) 0 ml OU Q6 [facility] [place] Last Admin: 03/18/17 12:25 Dose: 1 drop Aspirin (Ecotrin) 81 mg PO DAILY [facility] Last Admin: 03/18/17 09:51 Dose: 81 mg Clopidogrel Bisulfate (Plavix) 75 mg PO DAILY [facility] [place] Last Admin: 03/18/17 09:51 Dose: Not Given Famotidine (Pepcid) 20 mg PO DAILY [facility] [place] Last Admin: 03/18/17 09:50 Dose: 20 mg Ferrous Sulfate (Feosol) 325 mg PO DAILY [facility] Last Admin: 03/18/17 09:50 Dose: 325 mg Furosemide (Lasix) 20 mg IVP DAILY [facility] [place] Last Admin: 03/18/17 09:53 Dose: 20 mg Hydralazine HCl (Apresoline) 25 mg PO Q8 [facility] [place] Last Admin: 03/18/17 05:52 Dose: 25 mg Piperacillin Sod/Tazobactam Sod (Zosyn 2.25 Gm Iv Premix) 2.25 gm in 50 mls @ 100 mls/hr IVPB Q8 [facility] Last Admin: 03/18/17 05:51 Dose: 100 mls/hr Magnesium Chloride (Slow-Mag) 64 mg PO BID [facility] [place] Last Admin: 03/18/17 09:50 Dose: 64 mg Methylprednisolone (Solu-Medrol) 40 mg IVP DAILY [facility] [place] Last Admin: 03/18/17 09:51 Dose: 40 mg Metoprolol Succinate (Toprol Xl) 50 mg PO DAILY [facility] [place] Last Admin: 03/18/17 09:50 Dose: 50 mg Rosuvastatin Calcium (Crestor) 10 mg PO HS [facility] Last Admin: 03/17/17 21:05 Dose: 10 mg - Labs Labs: 03/17/17 08:43 03/18/17 06:56 PT 16.4 SECONDS (9.7-12.2) H 03/12/17 14:30 INR 1.4 03/12/17 14:30 APTT 27 SECONDS (21-34) 03/12/17 14:30 - Constitutional Appears: No Acute Distress, Chronically Ill - Head Exam Head Exam: ATRAUMATIC, NORMAL INSPECTION - Eye Exam Eye Exam: EOMI, Normal appearance - Neck Exam Neck Exam: Normal Inspection. absent: Tenderness - Respiratory Exam Respiratory Exam: Clear to Ausculation Bilateral, NORMAL BREATHING PATTERN - Cardiovascular Exam Cardiovascular Exam: REGULAR RHYTHM, +S1 - GI/Abdominal Exam GI & Abdominal Exam: Soft. absent: Tenderness - Extremities Exam Extremities Exam: Normal Inspection. absent: Tenderness - Neurological Exam Neurological Exam: Alert, CN II-XII Intact - Skin Skin Exam: Dry, Warm Assessment and Plan (1) ANNABEL (acute kidney injury) Status: Acute (2) CAD (coronary artery disease) Status: Acute (3) Contrast dye induced nephropathy Status: Acute (4) CKD (chronic kidney disease) stage 3, GFR 30-59 ml/min Status: Acute (5) HTN (hypertension) Status: Acute (6) Hyperlipemia Status: Acute (7) Hypertension Status: Chronic (8) Leukocytosis Status: Acute - Assessment and Plan (Free Text) Plan: Same meds Add ESAs
[2017-03-18] MEDS: EPOETIN ALFA 10,000 UNIT/ML ML SC SCH (14:21)
[2017-03-18 18:23] VITALS: RESP 20
--- NOTE | 2017-03-18 21:57 | PN ---
DATE: SUBJECTIVE: The patient states he is experiencing shortness of breath and cough. He denies any retrosternal chest pain. PHYSICAL EXAMINATION: VITAL SIGNS: Blood pressure 156/94, heart rate 70, temperature 97.6, and respirations 18. HEENT: Pale conjunctivae. CHEST: Bilateral rhonchi. HEART: S1 and S2 regular. EXTREMITIES: Trace leg edema. LABORATORY DATA: Today's BUN and creatinine are 56 and 2.1, slight improvement compared to yesterday. ASSESSMENT: 1. Ischemic cardiomyopathy. 2. Nonsustained ventricular tachycardia. 3. Severe pulmonary hypertension. 4. Chronic renal insufficiency. 5. Coronary artery disease, status post coronary artery bypass surgery, as well as bioprosthetic mitral valve replacement in 2006. CONDITIONS: I discussed case with Dr. Saha who asked me to continue the cardiac care to the patient and also agreed with the fact that the patient is not a suitable candidate for invasive cardiac workup. In the meantime, I discussed case with primary physician, Dr. Marshall Moreno. Continue current medical management. Obtain chest x-ray AP and lateral. I will administer Lasix at 40 mg stat IV dose. Rodrick Mckeon MD
--- NOTE | 2017-03-18 22:53 | CP.PCM.PN ---
Subjective - Date & Time of Evaluation Date of Evaluation: 03/18/17 Time of Evaluation: 17:35 - Subjective Subjective: Pt seen and evaluated, is less short of breath, case has been discussed by cardiology, no nausea, vomitting .pt is for medical management Objective - Vital Signs/Intake and Output Vital Signs (last 24 hours): Temp Pulse Resp BP Pulse Ox 98.1 F 66 20 137/67 97 03/18/17 15:22 03/18/17 15:22 03/18/17 15:22 03/18/17 18:31 03/18/17 15:22 - Medications Medications: Current Medications Artificial Tears (Artificial Tears) 0 ml OU Q6 [facility] Last Admin: 03/18/17 18:28 Dose: 1 drop Aspirin (Ecotrin) 81 mg PO DAILY [facility] Last Admin: 03/18/17 09:51 Dose: 81 mg Clopidogrel Bisulfate (Plavix) 75 mg PO DAILY [facility] Last Admin: 03/18/17 09:51 Dose: Not Given Epoetin Eugenio (Procrit) 10,000 unit SC MWF [facility] Last Admin: 03/18/17 14:21 Dose: 10,000 unit Famotidine (Pepcid) 20 mg PO DAILY [facility] Last Admin: 03/18/17 09:50 Dose: 20 mg Ferrous Sulfate (Feosol) 325 mg PO DAILY [facility] Last Admin: 03/18/17 09:50 Dose: 325 mg Furosemide (Lasix) 40 mg IVP BID [facility] Last Admin: 03/18/17 18:31 Dose: 40 mg Hydralazine HCl (Apresoline) 25 mg PO Q8 [facility] Last Admin: 03/18/17 21:29 Dose: 25 mg Piperacillin Sod/Tazobactam Sod (Zosyn 2.25 Gm Iv Premix) 2.25 gm in 50 mls @ 100 mls/hr IVPB Q8 [facility] Last Admin: 03/18/17 21:29 Dose: 100 mls/hr Magnesium Chloride (Slow-Mag) 64 mg PO BID [facility] Last Admin: 03/18/17 18:29 Dose: 64 mg Methylprednisolone (Solu-Medrol) 40 mg IVP DAILY [facility] Last Admin: 03/18/17 09:51 Dose: 40 mg Metoprolol Succinate (Toprol Xl) 50 mg PO DAILY [facility] Last Admin: 03/18/17 09:50 Dose: 50 mg Rosuvastatin Calcium (Crestor) 10 mg PO HS [facility] Last Admin: 03/18/17 21:29 Dose: 10 mg - Labs Labs: 03/17/17 08:43 03/18/17 06:56 PT 16.4 SECONDS (9.7-12.2) H 03/12/17 14:30 INR 1.4 03/12/17 14:30 APTT 27 SECONDS (21-34) 03/12/17 14:30 - Constitutional Appears: No Acute Distress - Head Exam Head Exam: ATRAUMATIC, NORMAL INSPECTION, NORMOCEPHALIC - Eye Exam Eye Exam: EOMI, Normal appearance, PERRL Pupil Exam: NORMAL ACCOMODATION, PERRL - Respiratory Exam Respiratory Exam: Decreased Breath Sounds, Rales, Rhonchi - Cardiovascular Exam Cardiovascular Exam: REGULAR RHYTHM, +S1, +S2. absent: Murmur - GI/Abdominal Exam GI & Abdominal Exam: Soft, Normal Bowel Sounds. absent: Tenderness - Neurological Exam Neurological Exam: Alert, Awake, CN II-XII Intact, Normal Gait, Oriented x3 - Psychiatric Exam Psychiatric exam: Normal Affect, Normal Mood Assessment and Plan (1) CHF (congestive heart failure) Status: Acute (2) Pneumonia Status: Acute (3) Anemia Status: Acute (4) Dyspnea Status: Acute (5) Endoleak post endovascular aneurysm repair Status: Acute
[2017-03-19] MEDS: Aritificial Tears (15ml) OU SCH ×4 (01:05→18:00)
[2017-03-19] MEDS: Piperacill/Tazo 2.25gm in Dex 2.25 GM/50 ML BAG IVPB SCH ×3 (05:37→21:42)
[2017-03-19 07:24] LABS: HEMOGLOBIN 9.1 g/dL (12.0-18.0); MEAN CELL VOLUME 94.4 fL (80.0-94.0); MEAN CORPUSCULAR HEMOGLOBIN 31.8 pg (27.0-31.0); MEAN CORPUSCULAR HGB CONC 33.7 g/dL (33.0-37.0); MEAN PLATELET VOLUME 8.4 fL (7.2-11.7); RBC 2.85 Mil/uL (4.40-5.90); RED CELL DISTRIBUTION WIDTH 13.6 % (11.5-14.5); WHITE BLOOD COUNT 16.2 K/uL (4.8-10.8)
[2017-03-19 07:52] LABS: ALB/GLOB RATIO 1.1 (1.0-2.1); ALBUMIN 3.1 g/dL (3.5-5.0); CALCIUM 8.8 mg/dl (8.6-10.4)
--- NOTE | 2017-03-19 09:24 | RAD ---
Chest x-ray two views History: Shortness of breath. Comparison: 03/12/2017 Findings: Persistent moderate loculated left pleural effusion. Persistent consolidative changes at the left lung base as well as the right infrahilar region. Bilateral hilar prominence. Status post median sternotomy. Enlarged ectatic aorta. Cardiomegaly. Surgical clips in the upper abdomen. Degenerative changes in the spine and shoulders. Impression: Persistent moderate loculated left pleural effusion. Persistent consolidative changes at the left lung base as well as the right infrahilar region. Bilateral hilar prominence. Status post median sternotomy. Enlarged ectatic aorta. Cardiomegaly.
[2017-03-19] MEDS: Metoprolol Succinate 50 mg XL Tab PO SCH (09:41)
[2017-03-19] MEDS: Magnesium Chloride 64 mg ER Tab PO SCH ×2 (09:41→17:36)
[2017-03-19] MEDS: MethylPREDNISolone 40 mg Vial IVP SCH (09:41)
--- NOTE | 2017-03-19 11:29 | CP.PCM.PN ---
Subjective - Date & Time of Evaluation Date of Evaluation: 03/19/17 Time of Evaluation: 11:27 - Subjective Subjective: pt seen and examined labs noted on lasix up in chair. 10 point ros obtained, negative except sob-improved from previously. Objective - Vital Signs/Intake and Output Vital Signs (last 24 hours): Temp Pulse Resp BP Pulse Ox 98.1 F 72 20 116/67 100 03/19/17 07:30 03/19/17 08:00 03/19/17 07:30 03/19/17 09:41 03/19/17 07:30 Intake and Output: 03/19/17 03/19/17 06:59 18:59 Intake Total 100 Balance 100 - Medications Medications: Current Medications Artificial Tears (Artificial Tears) 0 ml OU Q6 [facility] Last Admin: 03/19/17 05:37 Dose: 1 drop Aspirin (Ecotrin) 81 mg PO DAILY [facility] Last Admin: 03/19/17 09:41 Dose: 81 mg Clopidogrel Bisulfate (Plavix) 75 mg PO DAILY [facility] Last Admin: 03/19/17 09:41 Dose: Not Given Epoetin Eugenio (Procrit) 10,000 unit SC MWF [facility] Last Admin: 03/18/17 14:21 Dose: 10,000 unit Famotidine (Pepcid) 20 mg PO DAILY [facility] Last Admin: 03/19/17 09:41 Dose: 20 mg Ferrous Sulfate (Feosol) 325 mg PO DAILY [facility] Last Admin: 03/19/17 09:41 Dose: 325 mg Furosemide (Lasix) 40 mg IVP BID [facility] Last Admin: 03/19/17 09:41 Dose: 40 mg Hydralazine HCl (Apresoline) 25 mg PO Q8 [facility] Last Admin: 03/19/17 06:17 Dose: 25 mg Piperacillin Sod/Tazobactam Sod (Zosyn 2.25 Gm Iv Premix) 2.25 gm in 50 mls @ 100 mls/hr IVPB Q8 [facility] Last Admin: 03/19/17 05:37 Dose: 100 mls/hr Magnesium Chloride (Slow-Mag) 64 mg PO BID [facility] Last Admin: 03/19/17 09:41 Dose: 64 mg Methylprednisolone (Solu-Medrol) 40 mg IVP DAILY [facility] Last Admin: 03/19/17 09:41 Dose: 40 mg Metoprolol Succinate (Toprol Xl) 50 mg PO DAILY [facility] Last Admin: 03/19/17 09:41 Dose: 50 mg Rosuvastatin Calcium (Crestor) 10 mg PO [facility] Last Admin: 03/18/17 21:29 Dose: 10 mg - Labs Labs: 03/19/17 07:07 03/19/17 07:07 PT 16.4 SECONDS (9.7-12.2) H 03/12/17 14:30 INR 1.4 03/12/17 14:30 APTT 27 SECONDS (21-34) 03/12/17 14:30 - Constitutional Appears: Non-toxic, No Acute Distress, Chronically Ill - Head Exam Head Exam: NORMAL INSPECTION - Eye Exam Eye Exam: Normal appearance, PERRL - ENT Exam ENT Exam: Mucous Membranes Moist, Normal Exam - Respiratory Exam Respiratory Exam: Decreased Breath Sounds, NORMAL BREATHING PATTERN - Cardiovascular Exam Cardiovascular Exam: REGULAR RHYTHM, RRR - GI/Abdominal Exam GI & Abdominal Exam: Distended, Soft - Extremities Exam Extremities Exam: Normal Inspection, Pedal Edema (1+) - Neurological Exam Neurological Exam: Alert, Awake, CN II-XII Intact - Psychiatric Exam Psychiatric exam: Normal Affect, Normal Mood - Skin Skin Exam: Normal Color, Warm Assessment and Plan (1) ANNABEL (acute kidney injury) Status: Acute (2) CAD (coronary artery disease) Status: Acute (3) CHF (congestive heart failure) Status: Acute (4) NSTEMI (non-ST elevated myocardial infarction) Status: Acute (5) Pneumonia Status: Acute - Assessment and Plan (Free Text) Assessment: creatinine stable underlying ckd on diuretic and steroids, recommend daily chems consider lowering lasix to once daily dose
--- NOTE | 2017-03-19 22:32 | PN ---
DATE: SUBJECTIVE: The patient's shortness of breath has improved. PHYSICAL EXAMINATION: VITAL SIGNS: Blood pressure , heart rate 72, temperature 98.1, and respirations 20. HEENT: Pale conjunctivae. CHEST: Basilar rhonchi bilaterally. HEART: S1 and S2 regular. EXTREMITIES: Trace leg edema. LABORATORY DATA: Today's BUN and creatinine are 60 and 2.1, potassium 3.8. Today's hemoglobin and hematocrit are 9.1 and 26.9, white count 16.2, platelet count 188,000. Repeat chest x-ray yesterday revealed persistent consolidated changes at the left lung base, as well as in the right infrahilar region. Bilateral hilar prominence. Enlarged ascending aorta and cardiomegaly. ASSESSMENT: 1. Exacerbation of congestive heart failure. 2. Coronary artery disease , status post coronary artery bypass surgery, as well as mitral valve replacement. 3. Nonsustained ventricular tachycardia. 4. Left lower lobe pneumonia. 5. Chronic renal insufficiency. 6. Chronic atrial fibrillation. RECOMMENDATIONS: Continue current hydralazine 25 mg q.8 hours, aspirin 81 mg once a day, ferrous sulfate 325 mg once daily, Lasix 40 mg intravenously twice a day, Plavix 75 mg once a day, Slow-Mag one tablet twice a day, Toprol-XL 50 mg once a day, Solu-Medrol 40 mg intravenously daily, Zosyn 2.25 gm intravenously q.8 hours. Awaiting EP evaluation. I did discuss the case with [employer]. At the time of discharge, the patient will be placed on Lasix at 80 mg p.o. twice a day and will follow up with Dr. Saha as soon as he leaves the hospital. Rodrick Mckeon MD
--- NOTE | 2017-03-19 23:09 | CP.PCM.PN ---
Subjective - Date & Time of Evaluation Date of Evaluation: 03/19/17 Time of Evaluation: 17:35 - Subjective Subjective: Pt seen and examined at bedside Objective - Vital Signs/Intake and Output Vital Signs (last 24 hours): Temp Pulse Resp BP Pulse Ox 97.6 F 73 20 119/73 98 03/19/17 15:20 03/19/17 15:20 03/19/17 15:20 03/19/17 17:36 03/19/17 15:20 - Medications Medications: Current Medications Artificial Tears (Artificial Tears) 0 ml OU Q6 [facility] Last Admin: 03/19/17 18:00 Dose: Not Given Aspirin (Ecotrin) 81 mg PO DAILY [facility] Last Admin: 03/19/17 09:41 Dose: 81 mg Clopidogrel Bisulfate (Plavix) 75 mg PO DAILY [facility] Last Admin: 03/19/17 09:41 Dose: Not Given Epoetin Eugenio (Procrit) 10,000 unit SC MWF [facility] Last Admin: 03/18/17 14:21 Dose: 10,000 unit Famotidine (Pepcid) 20 mg PO DAILY [facility] Last Admin: 03/19/17 09:41 Dose: 20 mg Ferrous Sulfate (Feosol) 325 mg PO DAILY [facility] Last Admin: 03/19/17 09:41 Dose: 325 mg Furosemide (Lasix) 40 mg IVP BID [facility] Last Admin: 03/19/17 17:36 Dose: 40 mg Hydralazine HCl (Apresoline) 25 mg PO Q8 [facility] Last Admin: 03/19/17 21:43 Dose: 25 mg Piperacillin Sod/Tazobactam Sod (Zosyn 2.25 Gm Iv Premix) 2.25 gm in 50 mls @ 100 mls/hr IVPB Q8 [facility] Last Admin: 03/19/17 21:42 Dose: 100 mls/hr Magnesium Chloride (Slow-Mag) 64 mg PO BID [facility] Last Admin: 03/19/17 17:36 Dose: 64 mg Methylprednisolone (Solu-Medrol) 40 mg IVP DAILY [facility] Last Admin: 03/19/17 09:41 Dose: 40 mg Metoprolol Succinate (Toprol Xl) 50 mg PO DAILY [facility] Last Admin: 03/19/17 09:41 Dose: 50 mg Rosuvastatin Calcium (Crestor) 10 mg PO HS [facility] Last Admin: 02/06/18 21:43 Dose: 10 mg - Labs Labs: 03/19/17 07:07 03/19/17 07:07 PT 16.4 SECONDS (9.7-12.2) H 03/12/17 14:30 INR 1.4 03/12/17 14:30 APTT 27 SECONDS (21-34) 03/12/17 14:30 Assessment and Plan (1) CHF (congestive heart failure) Status: Acute (2) Pneumonia Status: Acute (3) Anemia Status: Acute (4) Dyspnea Status: Acute (5) End[place] post endovascular aneurysm repair Status: Acute
[2017-03-20] MEDS: Aritificial Tears (15ml) OU SCH ×3 (01:09→12:09)
[2017-03-20] MEDS: Piperacill/Tazo 2.25gm in Dex 2.25 GM/50 ML BAG IVPB SCH (05:55)
[2017-03-20 08:46] VITALS: PULSE 65; TEMP 97.4; O2SAT 98
[2017-03-20] MEDS: EPOETIN ALFA 10,000 UNIT/ML ML SC SCH (09:41)
[2017-03-20] MEDS: Magnesium Chloride 64 mg ER Tab PO SCH (09:42)
[2017-03-20] MEDS: Metoprolol Succinate 50 mg XL Tab PO SCH (09:42)
[2017-03-20 09:53] VITALS: BP 126/70
[2017-03-20] MEDS: MethylPREDNISolone 40 mg Vial IVP SCH (09:53)
--- NOTE | 2017-03-20 13:44 | CP.PCM.PN ---
Subjective - Date & Time of Evaluation Date of Evaluation: 03/20/17 Time of Evaluation: 13:44 - Subjective Subjective: PT CLEARED FOR D.C HOME TODAY PER DR. MCLAUGHLIN AND DR. CISSE. ALSO OK TO D/C HOME PER DR. POWERS. PLEASE NOTE THAT PT STILL HAS NOT BEEN SEEN BY DR. NELSON. CONSULT ORDERED ON 03/[address] NELSON CALLED AT OFFICE AND CELLPHONE WITH MESSAGES LEFT EACH DAY BY NURSING STAFF, GAMING CAGE CASHIER, AND PHYSICIAN ADVISOR WITHOUT PT EVALUATION . DISCUSSED THIS WITH DRS. CISSE AND ARNOLDO. DR. MCLAUGHLIN IS PT'S PRIMARY MD AND PER HIM IT IS OK TO D/C WITHOUT DR. LESLIE SANDRA; PT TO SEE DR. MCLAUGHLIN IN THE OFFICE NEXT WEEK. PER DR. CISSE IF IT IS OK WITH DR. MCLAUGHLIN THEN WE CAN D/C. NEW MEDICATIONS DISCUSSED AT LENGTH WITH THE PT AND CALLED INTO HIS PHARMACY (THEY WILL DELIVER THEM THIS EVENING). ALL D/C AND F/U INFO DISCUSSED AT LENGTH WITH THE PT. SEE BELOW FOR ADDITIONAL D/C INFORMATION PROVIDED TO THE PT. NO FURTHER ORDERS. -FOLLOW UP WITH DR. MCLAUGHLIN IN HIS OFFICE WITHIN 5-7 DAYS OF DISCHARGE HOME---- CALL THE OFFICE TOMORROW TO MAKE AN APPOINTMENT. -CONTINUE YOUR HOME MEDICATIONS USUAL. -STOP TAKING YOUR LISINOPRIL AT HOME. -NEW PRESCRIPTIONS INCLUDE: 1) LASIX 80 MG (TABLETS WILL COME IN 40 MG AMOUNT) TAKE 2 TABLETS BY MOUTH TWICE A DAY (IN THE MORNING BEFORE BREAKFAST AND AGAIN IN THE EARLY EVENING BEFORE DINNER). THIS MEDICATION IS A WATER PILL AND WILL HELP WITH THE FLUID IN YOUR LUNGS. 2) HYDRALAZINE 25 MG (1 TABLET) BY MOUTH EVERY 8 HOURS (THIS IS FOR YOUR BLOOD PRESSURE AND HEART). 3) PREDNISONE 20 MG (1 TABLET) BY MOUTH ONCE A DAY FOR 5 DAYS (THIS IS GOING TO HELP WITH YOUR BREATHING). -FOR ANY OTHER CONCERNS OR QUESTIONS, FEEL FREE TO CONTACT DR. MCLAUGHLIN. Objective - Vital Signs/Intake and Output Vital Signs (last 24 hours): Temp Pulse Resp BP Pulse Ox 97.4 F L 65 20 126/70 98 03/20/17 08:44 03/20/17 08:44 03/20/17 08:44 03/20/17 09:52 03/20/17 08:44 Intake and Output: 03/20/17 03/20/17 06:59 18:59 Intake Total 100 Balance 100 - Medications Medications: Current Medications Artificial Tears (Artificial Tears) 0 ml OU Q6 [facility] Last Admin: 03/20/17 12:09 Dose: 2 drop Aspirin (Ecotrin) 81 mg PO DAILY [facility] Last Admin: 03/20/17 09:39 Dose: 81 mg Clopidogrel Bisulfate (Plavix) 75 mg PO DAILY [facility] Last Admin: 03/20/17 09:41 Dose: Not Given Epoetin Eugenio (Procrit) 10,000 unit PA MWF [facility] Last Admin: 03/20/17 09:41 Dose: 10,000 unit Famotidine (Pepcid) 20 mg PO DAILY [facility] Last Admin: 03/20/17 09:40 Dose: 20 mg Ferrous Sulfate (Feosol) 325 mg PO DAILY [facility] Last Admin: 03/20/17 09:39 Dose: 325 mg Furosemide (Lasix) 40 mg IVP BID [facility] Last Admin: 03/20/17 09:52 Dose: 40 mg Hydralazine HCl (Apresoline) 25 mg PO Q8 [facility] Last Admin: 03/20/17 05:55 Dose: 25 mg Piperacillin Sod/Tazobactam Sod (Zosyn 2.25 Gm Iv Premix) 2.25 gm in 50 mls @ 100 mls/hr IVPB Q8 [facility] Last Admin: 03/20/17 05:55 Dose: 100 mls/hr Magnesium Chloride (Slow-Mag) 64 mg PO BID [facility] Last Admin: 03/20/17 09:42 Dose: 64 mg Methylprednisolone (Solu-Medrol) 40 mg IVP DAILY [facility] Last Admin: 03/20/17 09:53 Dose: 40 mg Metoprolol Succinate (Toprol Xl) 50 mg PO DAILY [facility] Last Admin: 03/20/17 09:42 Dose: 50 mg Rosuvastatin Calcium (Crestor) 10 mg PO HS [facility] Last Admin: 03/19/17 21:43 Dose: 10 mg - Labs Labs: 03/19/17 07:07 03/19/17 07:07 PT 16.4 SECONDS (9.7-12.2) H 03/12/17 14:30 INR 1.4 03/12/17 14:30 APTT 27 SECONDS (21-34) 03/12/17 14:30
--- NOTE | 2017-03-20 13:52 | PCM.HF ---
Heart Failure Core Measure - Heart Failure Ejection Fraction: Less Than 40 % NAYANA Inhibitor Prescribed: No Contraindication/Reason for not providing: D/C 2/2 CKD Beta-Stiven Prescribed: None Contraindication/Reason for not providing: ON METOPROLOL TARTATE Angiotensin II Receptor Stiven Prescribed: No Contraindication/Reason for not providing: CKD AnticoagulationTherapy for Atrial Fibrillation/Atrialflutter: No Contraindication/Reason for not providing: H/O BLEEDING Aldosterone Antagonist Prescribed: No Contraindication/Reason for not providing: CKD Hydralazine Nitrate Prescribed: Yes Implantable Cardioverter Defibrillator Therapy: No Contraindication/Reason for not providing: PER CARDIO: CONTINUE MEDICAL TREATMENT Cardiac Resynchronization Therapy Prescribed: No Contraindication/Reason for not providing: PER CARDIO: CONTINUE MEDICAL TREATMENT - Follow up Will be discharged to: Home Follow Up Date (must be within 7 days from discharge): 03/25/17 Follow Up Time: 09:00
--- NOTE | 2017-03-20 14:04 | CP.PCM.PN ---
Subjective - Date & Time of Evaluation Date of Evaluation: 03/20/17 Time of Evaluation: 14:01 - Subjective Subjective: Alert; less SOB Good UO, not recorded creat stable at 2.1- likely baseline CHF sxs improved Objective - Vital Signs/Intake and Output Vital Signs (last 24 hours): Temp Pulse Resp BP Pulse Ox 97.4 F L 65 20 126/70 98 03/20/17 08:44 03/20/17 08:44 03/20/17 08:44 03/20/17 09:52 03/20/17 08:44 Intake and Output: 03/20/17 03/20/17 06:59 18:59 Intake Total 100 Balance 100 - Medications Medications: Current Medications Artificial Tears (Artificial Tears) 0 ml OU Q6 [facility] Last Admin: 03/20/17 12:09 Dose: 2 drop Aspirin (Ecotrin) 81 mg PO DAILY [facility] Last Admin: 03/20/17 09:39 Dose: 81 mg Clopidogrel Bisulfate (Plavix) 75 mg PO DAILY [facility] Last Admin: 03/20/17 09:41 Dose: Not Given Epoetin Eugenio (Procrit) 10,000 unit SC MWF [facility] Last Admin: 03/20/17 09:41 Dose: 10,000 unit Famotidine (Pepcid) 20 mg PO DAILY [facility] Last Admin: 03/20/17 09:40 Dose: 20 mg Ferrous Sulfate (Feosol) 325 mg PO DAILY [facility] Last Admin: 03/20/17 09:39 Dose: 325 mg Furosemide (Lasix) 40 mg IVP BID [facility] Last Admin: 03/20/17 09:52 Dose: 40 mg Hydralazine HCl (Apresoline) 25 mg PO Q8 [facility] Last Admin: 03/20/17 05:55 Dose: 25 mg Magnesium Chloride (Slow-Mag) 64 mg PO BID [facility] Last Admin: 03/20/17 09:42 Dose: 64 mg Methylprednisolone (Solu-Medrol) 40 mg IVP DAILY [facility] Last Admin: 03/20/17 09:53 Dose: 40 mg Metoprolol Succinate (Toprol Xl) 50 mg PO DAILY [facility] Last Admin: 03/20/17 09:42 Dose: 50 mg Rosuvastatin Calcium (Crestor) 10 mg PO HS [facility] Last Admin: 03/19/17 21:43 Dose: 10 mg - Labs Labs: 03/19/17 07:07 03/19/17 07:07 PT 16.4 SECONDS (9.7-12.2) H 03/12/17 14:30 INR 1.4 03/12/17 14:30 APTT 27 SECONDS (21-34) 03/12/17 14:30 - Constitutional Appears: No Acute Distress, Chronically Ill - Head Exam Head Exam: ATRAUMATIC, NORMAL INSPECTION - Eye Exam Eye Exam: EOMI, Normal appearance - Neck Exam Neck Exam: Normal Inspection. absent: Tenderness - Respiratory Exam Respiratory Exam: Clear to Ausculation Bilateral, NORMAL BREATHING PATTERN - Cardiovascular Exam Cardiovascular Exam: REGULAR RHYTHM, +S1 - GI/Abdominal Exam GI & Abdominal Exam: Soft. absent: Tenderness - Extremities Exam Extremities Exam: Normal Inspection. absent: Tenderness - Neurological Exam Neurological Exam: Alert, CN II-XII Intact - Skin Skin Exam: Dry, Warm Assessment and Plan (1) ANNABEL (acute kidney injury) Status: Acute (2) CAD (coronary artery disease) Status: Acute (3) Contrast dye induced nephropathy Status: Acute (4) CKD (chronic kidney disease) stage 3, GFR 30-59 ml/min Status: Acute (5) HTN (hypertension) Status: Acute (6) Hyperlipemia Status: Acute (7) Hypertension Status: Chronic (8) Leukocytosis Status: Acute - Assessment and Plan (Free Text) Plan: Meds as per cardio CKD 3 stable- continue to monitor; will be followed up as outpt
--- NOTE | 2017-03-20 23:41 | CP.PCM.DIS ---
Provider - Provider Date of Admission: 03/12/17 16:57 Attending physician: Marshall Moreno MD Time Spent in preparation of Discharge (in minutes): 34 Diagnosis - Discharge Diagnosis (1) CHF (congestive heart failure) Status: Acute (2) Pneumonia Status: Acute (3) Anemia Status: Acute (4) Dyspnea Status: Acute (5) Endoleak post endovascular aneurysm repair Status: Acute Hospital Course - Lab Results Lab Results: Micro Results 03/12/17 14:30 Blood Blood Culture - Final NO GROWTH AFTER 5 DAYS 03/12/17 14:30 Blood Gram Stain - Final TEST NOT PERFORMED 03/12/17 15:00 Blood Blood Culture - Final NO GROWTH AFTER 5 DAYS 03/12/17 15:00 Blood Gram Stain - Final TEST NOT PERFORMED 03/12/17 14:33 Urine Urine Culture - Final > 100,000 CFU/ML. MULTIPLE SPECIES. SUGGEST REPEAT SPECIMEM. Most Recent Lab Values WBC 16.2 K/uL (4.8-10.8) H 03/19/17 07:07 RBC 2.85 Mil/uL (4.40-5.90) L 03/19/17 07:07 Hgb 9.1 g/dL (12.0-18.0) L 03/19/17 07:07 Hct 26.9 % (35.0-51.0) L 03/19/17 07:07 MCV 94.4 fL (80.0-94.0) H 03/19/17 07:07 MCH 31.8 pg (27.0-31.0) H 03/19/17 07:07 MCHC 33.7 g/dL (33.0-37.0) 03/19/17 07:07 RDW 13.6 % (11.5-14.5) 03/19/17 07:07 Plt Count 288 K/uL (130-400) 03/19/17 07:07 MPV 8.4 fL (7.2-11.7) 03/19/17 07:07 Neut % (Auto) 93.8 % (50.0-75.0) H 03/15/17 08:05 Lymph % (Auto) 3.0 % (20.0-40.0) L 03/15/17 08:05 [place] % (Auto) 3.1 % (0.0-10.0) 03/15/17 08:05 Eos % (Auto) 0.0 % (0.0-4.0) 03/15/17 08:05 Baso % (Auto) 0.1 % (0.0-2.0) 03/15/17 08:05 Neut # (Auto) 16.4 K/uL (1.8-7.0) H 03/15/17 08:05 Lymph # (Auto) 0.5 K/uL (1.0-4.3) L 03/15/17 08:05 [place] # (Auto) 0.5 K/uL (0.0-0.8) 03/15/17 08:05 Eos # (Auto) 0.0 K/uL (0.0-0.7) 03/15/17 08:05 Baso # (Auto) 0.0 K/uL (0.0-0.2) 03/15/17 08:05 Neutrophils % (Manual) 97 % (50-75) H 03/15/17 08:05 Band Neutrophils % 1 % (0-2) 03/15/17 08:05 Lymphocytes % (Manual) 1 % (20-40) L 03/15/17 08:05 Monocytes % (Manual) 1 % (0-10) 03/15/17 08:05 Platelet Estimate Normal (NORMAL) 03/15/17 08:05 Large Platelets Present 03/15/17 08:05 Hypochromasia (manual) Slight 03/12/17 14:30 Anisocytosis (manual) Slight 03/12/17 14:30 Poikilocytosis (manual Slight 03/14/17 09:52 Basophilic Stippling Slight 03/15/17 08:05 Ovalocytes Slight 03/15/17 08:05 Arun Cells Slight 03/14/17 09:52 PT 16.4 SECONDS (9.7-12.2) H 03/12/17 14:30 INR 1.4 03/12/17 14:30 APTT 27 SECONDS (21-34) 03/12/17 14:30 D-Dimer, Quantitative 3570 ng/mlDDU (0-243) H 03/12/17 14:30 Sodium 137 mmol/L (132-148) 03/19/17 07:07 Potassium 3.8 mmol/L (3.6-5.2) 03/19/17 07:07 Chloride 95 mmol/L (98-107) L 03/19/17 07:07 Carbon Dioxide 31 mmol/L (22-30) H 03/19/17 07:07 Anion Gap 15 (10-20) 03/19/17 07:07 BUN 60 mg/dL (9-20) H 03/19/17 07:07 Creatinine 2.1 mg/dL (0.8-1.5) H 03/19/17 07:07 Est GFR ( Amer) 36 03/19/17 07:07 Est GFR (Non-Af Amer) 30 03/19/17 07:07 Random Glucose 97 mg/dL (75-110) 03/19/17 07:07 Calcium 8.8 mg/dl (8.6-10.4) 03/19/17 07:07 Phosphorus 3.9 mg/dL (2.5-4.5) 03/16/17 09:20 Magnesium 1.9 mg/dL (1.6-2.3) 03/16/17 09:20 Iron 74 ug/dL (49-181) 03/14/17 07:01 TIBC 238 ug/dL (250-450) L 03/14/17 07:01 % Saturation 31 (20-55) 03/14/17 07:01 Total Bilirubin 0.4 mg/dL (0.2-1.3) 03/19/17 07:07 AST 31 U/L (17-59) 03/19/17 07:07 ALT 29 U/L (21-72) 03/19/17 07:07 Alkaline Phosphatase 42 U/L (38-126) 03/19/17 07:07 Total Creatine Kinase 42 U/L (55-170) L 03/13/17 08:30 CK-MB (Mass) 1.67 ng/mL (0.0-3.38) 03/13/17 08:30 NT-Pro-B Natriuret Pep 47253 pg/mL (0-900) H 03/12/17 14:30 Troponin I 0.1350 ng/mL (0.00-0.120) H* 03/13/17 08:30 Total Protein 6.0 g/dL (6.3-8.3) L 03/19/17 07:07 Albumin 3.1 g/dL (3.5-5.0) L 03/19/17 07:07 Globulin 2.9 gm/dL (2.2-3.9) 03/19/17 07:07 Albumin/Globulin Ratio 1.1 (1.0-2.1) 03/19/17 07:07 Urine Color Straw (YELLOW) 03/15/17 23:30 Urine Clarity Clear (Clear) 03/15/17 23:30 Urine pH 5.0 (5.0-8.0) 03/15/17 23:30 Ur Specific [place] 1.009 (1.003-1.030) 03/15/17 23:30 Urine Protein Negative mg/dL (NEGATIVE) 03/15/17 23:30 Urine Glucose (UA) Normal mg/dL (Normal) 03/15/17 23:30 Urine Ketones Negative mg/dL (NEGATIVE) 03/15/17 23:30 Urine Blood Negative (NEGATIVE) 03/15/17 23:30 Urine Nitrate Negative (NEGATIVE) 03/15/17 23:30 Urine Bilirubin Negative (NEGATIVE) 03/15/17 23:30 Urine Urobilinogen Normal mg/dL (0.2-1.0) 03/15/17 23:30 Ur Leukocyte Esterase Trace Wes[place]/uL (Negative) 03/15/17 23:30 Urine WBC (Auto) 6 /hpf (0-5) H 03/15/17 23:30 Urine RBC (Auto) 1 /hpf (0-3) 03/15/17 23:30 Ur Squamous Epith Cells < 1 /hpf (0-5) 03/15/17 23:30 Urine Bacteria Rare (<OCC) 03/15/17 23:30 Hyaline Casts 0-2 /lpf (0-2) 03/15/17 23:30 U Random Total Protein 14.0 mg/dL (0.0-12.0) H 03/15/17 23:31 Ur Random Sodium 102 mmol/L 03/15/17 23:31 Influenza Typ A,B (EIA) Negative for flu a/b (NEGATIVE) 03/12/17 14:35 - Hospital Course Hospital Course: PT SEEN AND EVALAUTED TODAY, IS STABLE FOR DISCHARGE -FOLLOW UP WITH DR. SAHA IN HIS OFFICE WITHIN 5-7 DAYS OF DISCHARGE HOME---- CALL THE OFFICE TOMORROW TO MAKE AN APPOINTMENT. -CONTINUE YOUR HOME MEDICATIONS USUAL. -STOP TAKING YOUR LISINOPRIL AT HOME. -NEW PRESCRIPTIONS INCLUDE: 1) LASIX 80 MG (TABLETS WILL COME IN 40 MG AMOUNT) TAKE 2 TABLETS BY MOUTH TWICE A DAY (IN THE MORNING BEFORE BREAKFAST AND AGAIN IN THE EARLY EVENING BEFORE DINNER). THIS MEDICATION IS A WATER PILL AND WILL HELP WITH THE FLUID IN YOUR LUNGS. 2) HYDRALAZINE 25 MG (1 TABLET) BY MOUTH EVERY 8 HOURS (THIS IS FOR YOUR BLOOD PRESSURE AND HEART). 3) PREDNISONE 20 MG (1 TABLET) BY MOUTH ONCE A DAY FOR 5 DAYS (THIS IS GOING TO HELP WITH YOUR BREATHING). -FOR ANY OTHER CONCERNS OR QUESTIONS, FEEL FREE TO CONTACT DR. SAHA. Discharge Exam - Head Exam Head Exam: ATRAUMATIC, NORMAL INSPECTION - Eye Exam Eye Exam: EOMI, Normal appearance, PERRL Pupil Exam: NORMAL ACCOMODATION, PERRL - Respiratory Exam Respiratory Exam: Decreased Breath Sounds, Rales - Cardiovascular Exam Cardiovascular Exam: +S1, +S2 - GI/Abdominal Exam GI & Abdominal Exam: Normal Bowel Sounds Discharge Plan - Discharge Medications Prescriptions: hydrALAZINE [Apresoline] 25 mg PO Q8 #90 tab Rosuvastatin Calcium [Crestor] 5 mg PO HS #30 tab Furosemide [Lasix] 80 mg PO BID #60 tablet Metoprolol Tartrate 25 mg PO Q12 #60 tablet predniSONE [predniSONE Tab] 20 mg PO DAILY 5 Days tab Pantoprazole [Protonix EC Tab] 40 mg PO DAILY #30 ect - Follow Up Plan Condition: FAIR Disposition: HOME/ ROUTINE Instructions: Metoprolol (By mouth), Furosemide (By mouth), Prednisone (By mouth), Hydralazine (By mouth), Pantoprazole (By mouth), Rosuvastatin (By mouth) , Myocardial Infarction (DC), Heart Failure (DC), Coronary Artery Disease (DC), Atrial Fibrillation (GEN), Acute Kidney Injury (DC), Pneumonia (DC) Additional Instructions: -FOLLOW UP WITH DR. SAHA IN HIS OFFICE WITHIN 5-7 DAYS OF DISCHARGE HOME---- CALL THE OFFICE TOMORROW TO MAKE AN APPOINTMENT. -CONTINUE YOUR HOME MEDICATIONS USUAL. -STOP TAKING YOUR LISINOPRIL AT HOME. -NEW PRESCRIPTIONS INCLUDE: 1) LASIX 80 MG (TABLETS WILL COME IN 40 MG AMOUNT) TAKE 2 TABLETS BY MOUTH TWICE A DAY (IN THE MORNING BEFORE BREAKFAST AND AGAIN IN THE EARLY EVENING BEFORE DINNER). THIS MEDICATION IS A WATER PILL AND WILL HELP WITH THE FLUID IN YOUR LUNGS. 2) HYDRALAZINE 25 MG (1 TABLET) BY MOUTH EVERY 8 HOURS (THIS IS FOR YOUR BLOOD PRESSURE AND HEART). 3) PREDNISONE 20 MG (1 TABLET) BY MOUTH ONCE A DAY FOR 5 DAYS (THIS IS GOING TO HELP WITH YOUR BREATHING). -FOR ANY OTHER CONCERNS OR QUESTIONS, FEEL FREE TO CONTACT DR. SAHA. Referrals: Krish Saha MD [Staff Provider] - Ministerio Berrios MD [Staff Provider] - Rodrick Mckeon MD [Staff Provider] - Marshall Moreno MD [Staff Provider] -
== END 2017-03-20 14:54 | disposition home or self-care (01) | DRG 280 ==
LOC: C.ER 12:33 → C.9E 16:57 → C.6T 03-13 11:54
PROVIDERS: ADMIT Internal Medicine; ATTEND Internal Medicine
DX: I13.0 Hypertensive heart and chronic kidney disease with heart failure and stage 1 through stage 4 chronic kidney disease, or unspecified chronic kidney disease (principal); I21.4 Non-ST elevation (NSTEMI) myocardial infarction; J18.9 Pneumonia, unspecified organism; I47.2 Ventricular tachycardia; N17.9 Acute kidney failure, unspecified; N18.3 Chronic kidney disease, stage 3 (moderate); T82.330A Leakage of aortic (bifurcation) graft (replacement), initial encounter; I50.9 Heart failure, unspecified; I27.20 Pulmonary hypertension, unspecified; I48.2 Chronic atrial fibrillation; I73.9 Peripheral vascular disease, unspecified; I25.10 Atherosclerotic heart disease of native coronary artery without angina pectoris; I25.5 Ischemic cardiomyopathy; N40.0 Benign prostatic hyperplasia without lower urinary tract symptoms; J44.9 Chronic obstructive pulmonary disease, unspecified; Y83.2 Surgical operation with anastomosis, bypass or graft as the cause of abnormal reaction of the patient, or of later complication, without mention of misadventure at the time of the procedure; D64.9 Anemia, unspecified; Z79.02 Long term (current) use of antithrombotics/antiplatelets; Z95.5 Presence of coronary angioplasty implant and graft; Z79.82 Long term (current) use of aspirin; Z87.442 Personal history of urinary calculi; Z87.891 Personal history of nicotine dependence; Z95.1 Presence of aortocoronary bypass graft; Z95.3 Presence of xenogenic heart valve

== ENCOUNTER 2017-11-15 11:38 | Emergency (ER) | payer MEDICARE ==
[2017-11-15 12:03] VITALS: BMI 25.7
--- NOTE | 2017-11-15 13:31 | C.PDOC ---
History Of Present Illness 86 year old male presents to the ED with left shoulder injury. He notes that he strained a muscle in his left shoulder while using a morgue keeper 3-4 weeks ago. The patient reports it is painful and difficult to raise the left arm. He mentions using [place] without relief. He notes the pain subsides while at rest. Otherwise he denies any numbness, tingling, weakness, chest pain and SOB. Time Seen by Provider: 11/15/17 13:00 Chief Complaint (Nursing): Upper Extremity Problem/Injury History Per: Patient History/Exam Limitations: no limitations Onset/Duration Of Symptoms: Days Current Symptoms Are (Timing): Still Present Exacerbating Factor(s): Movement Past Medical History Reviewed: Historical Data, Nursing Documentation, Vital Signs Vital Signs: Last Vital Signs Temp 98.7 F 11/15/17 12:06 Pulse 62 11/15/17 12:06 Resp 17 11/15/17 12:06 BP 108/68 11/15/17 12:06 Pulse Ox 98 11/15/17 12:06 - Medical History PMH: Anemia, Arthritis, CAD, Cardia Arrhythmia (A FIB), CHF, COPD, Emphysema, Ga ll Bladder Disease (CHOLECYSTECTOMY), HTN, Kidney Stones, Chronic Kidney Disease (RENAL INSUFFICIENCY) Surgical History: CABG, Cholecystectomy, Coronary Stent, Endoscopy - [facility] Procedures CORONAR ARTERIOGR-2 CATH (12/07/13) LEFT HEART CARDIAC CATH (12/07/13) LT HEART ANGIOCARDIOGRAM (12/07/13) REPAIR LEFT COMMON ILIAC ARTERY, PERCUTANEOUS APPROACH (03/01/17) RESTRICT L COM ILIAC ART W FENESTR DEV 1 OR 2, PERC (03/01/17) Family History: States: No Known Family Hx - Social History Hx Tobacco Use: No Hx Alcohol Use: No Hx Substance Use: No - Immunization History Hx Tetanus Toxoid Vaccination: No Hx Influenza Vaccination: No Hx Pneumococcal Vaccination: No Review Of Systems Cardiovascular: Negative for: Chest Pain Respiratory: Negative for: Shortness of Breath Musculoskeletal: Positive for: Shoulder Pain (Left shoulder ) Neurological: Negative for: Weakness, Numbness Physical Exam - Physical Exam Appears: Well, Non-toxic, No Acute Distress Skin: Normal Color, Warm, Dry Head: Atraumatic, Normacephalic Eye(s): bilateral: Normal Inspection Neck: Normal, Normal ROM, Supple Chest: Symmetrical Cardiovascular: Rhythm Regular, No Murmur Respiratory: Normal Breath Sounds, No Rales, No Rhonchi, No Wheezing Extremity: No Normal ROM (limited abduction of the left upper extremity secondary to pain), Tenderness (mild tenderness to the left lateral shoulder), Capillary Refill (less than 2 seconds), No Swelling Neurological/Psych: Oriented x3, Normal Speech, Normal Motor, Normal Sensation Gait: Steady ED Course And Treatment ECG: Interpreted By Me, Viewed By Me ECG Rhythm: Atrial Fibrillation ECG Interpretation: No Changes From Prior (compared to study on 03/12/2017) Rate From EC O2 Sat by Pulse Oximetry: 98 (RA) Pulse Ox Interpretation: Normal Medical Decision Making Medical Decision Making: Assessment: 86 year old male with left shoulder injury Plan: -shoulder X-ray -offered pain medication. However, patient declined. Follow up: X-ray reviewed and is negative for fracture or dislocation. Arm sling applied. On re-examination, patient is resting comfortably in no acute distress. Patient reports improvement of symptoms. Patient feels comfortable going home and will be discharged. Patient given follow up instructions. Instructed to return to ER if symptoms worsen or new symptoms arise. Disposition Counseled Patient/Family Regarding: Diagnosis, Need For Followup, Rx Given - Disposition Referrals: Devon Rae MD [Staff Provider] - Disposition: HOME/ ROUTINE Disposition Time: 13:28 Condition: STABLE Additional Instructions: Take Tylenol for any pain Take steroid pack for the week Follow up with your orthopedic or doctor for further care Prescriptions: Acetaminophen [Tylenol Arthritis] 650 mg PO Q8 #30 tablet.er Methylprednisolone [Medrol Dose Pack (21 tabs)] 4 mg PO DAILY #21 mg Instructions: Shoulder Tendinopathy (DC) Forms: [employer] ([place]) - POA Present On Arrival: None - Clinical Impression Clinical Impression: Shoulder tendonitis - PA / MICROBIOLOGY LAB MANAGER / Resident Statement MD/DO has reviewed & agrees with the documentation as recorded. - Scribe Statement The provider has reviewed the documentation as recorded by the Scribe (Carole Oropeza) All medical record entries made by the Scribe were at my direction and personally dictated by me. I have reviewed the chart and agree that the record accurately reflects my personal performance of the history, physical exam, medical decision making, and the department course for this patient. I have also personally directed, reviewed, and agree with the discharge instructions and disposition.
[2017-11-15 14:24] VITALS: BP 121/79; PULSE 88; RESP 18; TEMP 98.2
[2017-11-15 14:27] VITALS: O2SAT 98
--- NOTE | 2017-11-15 14:35 | RAD ---
Date of service: 11/15/2017 PROCEDURE: Radiographs of the Left Shoulder HISTORY: Pain non-traumatic COMPARISON: No prior. FINDINGS: BONES: There is diffuse bone demineralization. No acute fracture or bone destruction JOINTS: Mild degenerative osteoarthrosis in the acromioclavicular and glenohumeral joints. SOFT TISSUES: Normal. OTHER FINDINGS: None. IMPRESSION: Mild degenerative osteoarthrosis in the acromioclavicular and glenohumeral joints. No acute fracture or dislocation.
--- NOTE | 2017-11-18 21:08 | CARD ---
APPROVED REPORT Date of service: 11/15/2017 EKG Measurement Heart [id number] <Conclusion> Atrial fibrillation Abnormal ECG
== END 2017-11-15 14:24 | disposition home or self-care (01) ==
LOC: C.ER 11:38
DX: M77.8 Other enthesopathies, not elsewhere classified (principal)

== ENCOUNTER 2017-12-17 09:49 | Emergency (ER) | payer MEDICARE ==
[2017-12-17 09:49] VITALS: BMI 25.7
[2017-12-17 10:14] VITALS: BP 133/66; PULSE 51; TEMP 98.1; O2SAT 99
--- NOTE | 2017-12-17 10:26 | C.PDOC ---
History Of Present Illness 87 year old male presents to the ED for evaluation of occasional right breast discomfort for 2 weeks. Patient reports the pain is sometimes positionally reproducible. Denies nipple discharge, swelling, fever, weight loss, history of cancer, and any other associated symptoms. Time Seen by Provider: 12/17/17 10:20 Chief Complaint (Nursing): Breast Problem History Per: Patient History/Exam Limitations: no limitations Onset/Duration Of Symptoms: Days Current Symptoms Are (Timing): Still Present Past Medical History Reviewed: Historical Data, Nursing Documentation, Vital Signs Vital Signs: Last Vital Signs Temp 98.1 F 12/17/17 10:06 Pulse 51 L 12/17/17 10:06 Resp 20 12/17/17 10:06 BP 133/66 12/17/17 10:06 Pulse Ox 99 12/17/17 10:06 - Medical History PMH: Anemia, Arthritis, Atrial Fibrillation, CAD, Cardia Arrhythmia (A FIB), CHF, COPD, Emphysema, Gall Bladder Disease (CHOLECYSTECTOMY), HTN, Kidney Stones, Chronic Kidney Disease (RENAL INSUFFICIENCY) Surgical History: CABG, Cholecystectomy, Coronary Stent, [place] - [facility] CORONAR ARTERIOGR-2 CATH (12/07/13) LEFT HEART CARDIAC CATH (12/07/13) LT HEART ANGIOCARDIOGRAM (12/07/13) REPAIR LEFT COMMON ILIAC ARTERY, PERCUTANEOUS APPROACH (03/01/17) RESTRICT L COM ILIAC ART W FENESTR DEV 1 OR 2, PERC (03/01/17) Family History: States: Unknown Family Hx - Social History Hx Tobacco Use: No Hx Alcohol Use: No Hx Substance Use: No - Immunization History Hx Tetanus Toxoid Vaccination: No Hx Influenza Vaccination: No Hx Pneumococcal Vaccination: No Review Of Systems Except As Marked, All Systems Reviewed And Found Negative. Constitutional: Negative for: Fever, Weight loss, Other (history of cancer.) Musculoskeletal: Positive for: Other (right breast discomfort. ) Skin: Negative for: Other ((-) nipple discharge. (-) nipple swelling.) Physical Exam - Physical Exam Appears: Well, Non-toxic, No Acute Distress, Other (elderly male breasts) Skin: Normal Color, Warm, Dry Head: Atraumatic, Normacephalic Eye(s): bilateral: Normal Inspection Neck: Normal ROM, Supple Chest: Symmetrical, No Deformity, No Other (no lymphadenopathy, no mass.) Cardiovascular: Rhythm Regular, No Murmur Respiratory: Normal Breath Sounds, No Rales, No Rhonchi, No Wheezing Neurological/Psych: Oriented x3, Normal Speech ED Course And Treatment O2 Sat by Pulse Oximetry: 99 (RA) Pulse Ox Interpretation: Normal Medical Decision Making Medical Decision Making: occasional R nipple area discomfort, more w movement no nipple d/c normal male breast exam, no JUSTINE Broach Operator: Serena Horvath (SCRIBE) Refer for US/Mammo Disposition Doctor Will See Patient In The: Office Counseled Patient/Family Regarding: Studies Performed, Diagnosis - Disposition Referrals: [facility] [Outside] [facility] [Outside] [facility] [Outside] [email or web address] [Outside] Marshall Moreno MD [Staff Provider] - Disposition: HOME/ ROUTINE Disposition Time: 10:25 Condition: GOOD Additional Instructions: follow-up with Dr. Moreno Consider referral for R breast mammogram and/or Ultrasound exam normal R breast exam. Instructions: Common Breast Problems, Mastalgia (DC) Forms: [facility] (Yakut) - Clinical Impression Clinical Impression: Pain of breast - Scribe Statement The provider has reviewed the documentation as recorded by the Scribe (Serena Horvath) Provider Attestation: All medical record entries made by the Scribe were at my direction and personally dictated by me. I have reviewed the chart and agree that the record accurately reflects my personal performance of the history, physical exam, medical decision making, and the department course for this patient. I have also personally directed, reviewed, and agree with the discharge instructions and disposition.
[2017-12-17 10:31] VITALS: RESP 18
== END 2017-12-17 10:31 | disposition home or self-care (01) ==
LOC: C.ER 09:49
DX: N64.4 Mastodynia (principal)

== ENCOUNTER 2017-12-29 09:25 | Emergency (ER) | payer MEDICARE ==
[2017-12-29 09:25] VITALS: BMI 25.7
[2017-12-29 10:08] VITALS: RESP 18; O2SAT 95
--- NOTE | 2017-12-29 11:15 | C.PDOC ---
History Of Present Illness 87 year old male, with past medical history of arthritis, presents to ED for evaluation of left knee and thigh pain since waking up this morning. He reports taking Tylenol without improvement. Denies trauma, injury, extremity weakness, numbness, change in sensation, fever, chills, or any other complaints at this time. Time Seen by Provider: 12/29/17 09:31 Chief Complaint (Nursing): Lower Extremity Problem/Injury History Per: Patient History/Exam Limitations: no limitations Onset/Duration Of Symptoms: Hrs Current Symptoms Are (Timing): Still Present Additional History Per: Patient Past Medical History Reviewed: Historical Data, Nursing Documentation, Vital Signs Vital Signs: Last Vital Signs Temp 98.2 F 12/29/17 09:47 Pulse 85 12/29/17 09:47 Resp 18 12/29/17 09:47 BP 140/82 12/29/17 09:47 Pulse Ox 95 12/29/17 09:47 - Medical History PMH: Anemia, Arthritis, Atrial Fibrillation, CAD, Cardia Arrhythmia (A FIB), CHF, COPD, Emphysema, Gall Bladder Disease (CHOLECYSTECTOMY), HTN, Kidney Stones, Chronic Kidney Disease (RENAL INSUFFICIENCY) Surgical History: CABG, Cholecystectomy, Coronary Stent, [facility] [place] [facility] CORONAR ARTERIOGR-2 CATH (12/07/13) LEFT HEART CARDIAC CATH (12/07/13) LT HEART ANGIOCARDIOGRAM (12/07/13) REPAIR LEFT COMMON ILIAC ARTERY, PERCUTANEOUS APPROACH (03/01/17) RESTRICT L COM ILIAC ART W FENESTR DEV 1 OR 2, PERC (03/01/17) Family History: States: Unknown Family Hx - Social History Hx Tobacco Use: No Hx Alcohol Use: No Hx Substance Use: No - Immunization History Hx Tetanus Toxoid Vaccination: No Hx Influenza Vaccination: No Hx Pneumococcal Vaccination: No Review Of Systems Except As Marked, All Systems Reviewed And Found Negative. Constitutional: Negative for: Fever, Chills Cardiovascular: Negative for: Chest Pain Respiratory: Negative for: Shortness of Breath Musculoskeletal: Positive for: Leg Pain (left knee and thigh pain) Skin: Negative for: Rash, Bruising Neurological: Negative for: Weakness, Numbness Physical Exam - Physical Exam Appears: Non-toxic, No Acute Distress (comfortable) Skin: Normal Color, Warm, Dry Head: Normacephalic Eye(s): bilateral: Normal Inspection Oral Mucosa: Moist Neck: Normal ROM, Supple Cardiovascular: Rhythm Regular, No Murmur Respiratory: Normal Breath Sounds, No Rales, No Rhonchi, No Wheezing Gastrointestinal/Abdominal: Soft, No Tenderness Extremity: Normal ROM (FROM of left knee joint), Tenderness (tenderness to left posterior knee and thigh with palpation), No Pedal Edema, No Calf Tenderness, Capillary Refill (less than 2 seconds), No Deformity, No Swelling Extremity: Bilateral: Atraumatic, Hips Non-Tender, Normal Color And Temperature Pulses: Left Dorsalis Pedis: Normal Neurological/Psych: Oriented x3, Normal Speech, Normal Motor, Normal Sensation Gait: Steady ED Course And Treatment O2 Sat by Pulse Oximetry: 95 (RA) Pulse Ox Interpretation: Normal - Other Rad Left knee Xray X-Ray: Interpreted by Me, Viewed By Me Interpretation: Arthritic changes. No acute fracture or dislocation. Left femur Xray X-Ray: Interpreted by Me, Viewed By Me Interpretation: Accession No. : [id number]. Patient Name / ID : LAN MANNING / [id number]. Exam Date : 12/29/2017 10:11:38 ( Approved ). Study Comment : Sex / Age : M / 87Y. Creator : Aldo Beltran MD. Dictator : Aldo Beltran MD. Licensed Mortgage Loan Officer : Jewelry Department Supervisor : Aldo Beltran MD. Approver2 : Report Date : 12/29/2017 16:26:21. My Comment : . Left femur four views. HISTORY: Leg pain. COMPARISON: None available. Findings: Surgical clips in the medial soft tissues. Prominent vascular calcifications. Radiopaque density seen projecting medial to the medial proximal tibia. Severe medial compartment joint space narrowing of the femorotibial joint space. Severe narrowing of the left hip joint space with subchondral sclerosis and osteophytosis. Productive change at the left greater trochanter. Calcified phleboliths in the pelvis. Severe narrowing of the patellofemoral joint space. No significant suprapatellar joint effusion. Partially imaged aorta iliac stent noted. Impression: Degenerative changes. If pain persists, consider correlation with MRI. Progress Note: Left knee and femur Xray ordered and reviewed. Pt was given Tylenol and Prednisone. Pt is being discharged home with instructions to follow up with PMD in 1-2 days for further evaluation. Disposition - Disposition Referrals: [facility] at [facility] [Outside] Disposition: HOME/ ROUTINE Disposition Time: 11:15 Condition: STABLE Additional Instructions: FOLLOW UP WITH YOUR DOCTOR/CLINIC IN 1-2 DAYS USE MEDICATIONS DIRECTED RETURN TOMORROW AFTER 9AM FOR VENOUS DOPPLER OF LEG Prescriptions: Acetaminophen [Tylenol 325mg tab] 650 mg PO Q6 PRN #30 tab PRN Reason: pain/fever predniSONE [predniSONE Tab] 40 mg PO DAILY #6 tab Instructions: Osteoarthritis (DC) Forms: General Discharge Instructions, [facility] (Taiwanese) Print Language: DOMINICAN - Clinical Impression Clinical Impression: Left thigh pain, Left knee pain, Osteoarthritis - Scribe Statement The provider has reviewed the documentation as recorded by the Monet Bell All medical record entries made by the Luchoiblinda were at my direction and personally dictated by me. I have reviewed the chart and agree that the record accurately reflects my personal performance of the history, physical exam, medical decision making, and the department course for this patient. I have also personally directed, reviewed, and agree with the discharge instructions and disposition.
[2017-12-29 11:41] VITALS: BP 129/83; PULSE 76; TEMP 97.5
--- NOTE | 2017-12-29 16:30 | RAD ---
Left femur four views HISTORY: Leg pain. COMPARISON: None available. Findings: Surgical clips in the medial soft tissues. Prominent vascular calcifications. Radiopaque density seen projecting medial to the medial proximal tibia Severe medial compartment joint space narrowing of the femorotibial joint space. Severe narrowing of the left hip joint space with subchondral sclerosis and osteophytosis. Productive change at the left greater trochanter. Calcified phleboliths in the pelvis. Severe narrowing of the patellofemoral joint space. No significant suprapatellar joint effusion. Partially imaged aorta iliac stent noted. Impression: Degenerative changes. If pain persists, consider correlation with MRI.
--- NOTE | 2017-12-29 17:40 | RAD ---
Left knee three views HISTORY: Left knee pain. COMPARISON: None available. FINDINGS: Prominent vascular calcifications. Multiple surgical clips and radiopaque densities seen medial to the distal femur and proximal tibia. Severe medial compartment joint space narrowing of the femorotibial joint space with subchondral sclerosis. No significant suprapatellar joint effusion. Moderate patellofemoral compartment joint space narrowing of the knee joint. Impression: Degenerative changes. If pain persists, consider MRI.
== END 2017-12-29 12:40 | disposition home or self-care (01) ==
LOC: C.ER 09:25
DX: M19.90 Unspecified osteoarthritis, unspecified site (principal); M25.562 Pain in left knee; M79.652 Pain in left thigh